=== PATIENT | female | born 1990 | race Caucasian/White ===

== ENCOUNTER 2020-11-28 12:56 | Outpatient (REF) | payer OTHER, SELFPAY ==
[2020-11-28 14:01] LABS: MANUAL DIFF FLAG NO
[2020-11-28 14:14] LABS: Basophils Absolute Auto 0.1 X10*3/uL (0.0-0.2); Basophils Percent Auto 0.6 % (0-2); Eosinophils Absolute Auto 0.2 X10*3/uL (0.0-0.4); Eosinophils Percent Auto 2.1 % (0-4); Hematocrit 37.5 % (37-47); Hemoglobin 11.6 g/dl (12.0-16.0); Imm Gran Abs Auto 0.02 X10*3/uL (0.00-0.03); Imm Gran Pct Auto 0.2 % (0.0-0.4); Lymphocytes Absolute Auto 3.5 X10*3/uL (1.2-4.9); Lymphocytes Percent Auto 36.2 % (20-40); Mean Corpuscular HGB Conc 30.9 g/dl (31.0-35.0); Mean Corpuscular Hemoglobin 18.6 pg (27.0-33.0); Monocytes Absolute Auto 0.6 X10*3/uL (0.1-1.2); Neutrophils Absolute Auto 5.3 X10*3/uL (2.0-8.3); Neutrophils Percent Auto 54.9 % (45-73); Platelet Count 306 X10*3/uL (160-400); Red Blood Count 6.22 X10*6/uL (4.20-5.50); Red Cell Distribution Width 17.7 % (11.0-16.0); White Blood Count 9.7 X10*3/uL (4.8-10.8)
[2020-11-28 14:15] LABS: Mean Corpuscular Volume 60.3 fL (80-98)
[2020-11-28 14:35] LABS: Alanine Aminotransferase 16 U/L (0-31); Albumin Level 4.9 g/dL (3.5-5.0); Alkaline Phosphatase 59 U/L (39-117); Anion Gap 16 (12-20); Aspartate Amino Transferase 18 U/L (5-31); Bilirubin Total 0.7 mg/dL (0.0-1.0); Blood Urea Nitrogen 13 mg/dL (9-16); Calcium 9.5 mg/dL (8.4-10.2); Carbon Dioxide 23 mmol/L (22-29); Chloride 104 mmol/L (96-108); Cholesterol 207 mg/dL; Estimated Glomerular Filt Rate > 60; Glucose Fasting 80 mg/dL (60-99); HDL Cholesterol 80 mg/dL; LDL Cholesterol Calculated 109 mg/dl; Potassium 4.5 mmol/L (3.3-5.1); Sodium 138 mmol/L (135-145); Total Protein 7.7 g/dL (6.5-8.0); Triglycerides 91 mg/dL
[2020-11-28 14:58] LABS: TSH reflex Free T4 1.52 uIU/mL (0.32-4.0)
== END 2020-11-28 12:57 | disposition home or self-care (01) ==
LOC: HO.HMGCLDS 12:56
PROVIDERS: PCP Internal Medicine; Visit Provider Internal Medicine
DX: Z76.89 Persons encountering health services in other specified circumstances (principal); F41.1 Generalized anxiety disorder; E66.09 Other obesity due to excess calories; Z68.35 Body mass index [BMI] 35.0-35.9, adult
CPT/HCPCS: 36415; 80053; 80061; 84443; 85025; 85060

== ENCOUNTER 2022-08-13 08:53 | Outpatient (REF) | payer OTHER, SELFPAY ==
--- NOTE | ~2022-08-13 | XR_ITS ---
EXAMINATION: XR CHEST CLINICAL INFORMATION: Obesity COMPARISON: None TECHNIQUE: 2 views of the chest were obtained. FINDINGS: No significant abnormality is noted involving the heart, lungs, mediastinum, bony thorax or soft tissues. XR/XR chest 2V IMPRESSION: Unremarkable examination.
[2022-08-13 09:22] LABS: MANUAL DIFF FLAG NO
--- NOTE | 2022-08-13 09:22 | ECG_ITS ---
Test Reason : obesity Blood Pressure : / mmHG Vent. Rate : 073 BPM Atrial Rate : 073 BPM P-R Int : 130 ms QRS Dur : 096 ms QT Int : 410 ms P-R-T Axes : 070 064 007 degrees QTc Int : 451 ms Normal sinus rhythm Nonspecific ST abnormality Abnormal ECG No previous ECGs available Referred By: Bernardo Curtis Electronically Signed By:CARLI ZUNIGA MD
[2022-08-13 10:03] LABS: Basophils Absolute Auto 0.1 X10*3/uL (0.0-0.2); Eosinophils Absolute Auto 0.2 X10*3/uL (0.0-0.4); Eosinophils Percent Auto 2.6 % (0-4); Hematocrit 37.8 % (37.0-47.0); Hemoglobin 11.3 g/dl (12.0-16.0); Imm Gran Abs Auto 0.03 X10*3/uL (0.00-0.03); Imm Gran Pct Auto 0.4 % (0.0-0.4); Lymphocytes Absolute Auto 2.8 X10*3/uL (1.2-4.9); Lymphocytes Percent Auto 34.1 % (20-40); Mean Corpuscular HGB Conc 29.9 g/dl (31.0-35.0); Mean Corpuscular Hemoglobin 17.7 pg (27.0-33.0); Monocytes Absolute Auto 0.4 X10*3/uL (0.1-1.2); Monocytes Percent Auto 5.1 % (2-11); Neutrophils Absolute Auto 4.6 x10*3/uL (2.0-8.3); Neutrophils Percent Auto 56.8 % (45-73); Platelet Count 334 X10*3/uL (160-400); Red Blood Count 6.39 X10*6/uL (4.20-5.50); Red Cell Distribution Width 16.5 % (11.0-16.0); White Blood Count 8.1 X10*3/uL (4.8-10.8)
[2022-08-13 10:05] LABS: Mean Corpuscular Volume 59.2 fL (80.0-98.0)
[2022-08-13 10:19] LABS: Estimated Average Glucose 91 mg/dL; Hemoglobin A1c % 4.8 %
[2022-08-13 10:45] LABS: Alanine Aminotransferase 18 U/L (0-31); Albumin Level 4.6 g/dL (3.5-5.0); Alkaline Phosphatase 91 U/L (39-117); Anion Gap 17 (12-20); Aspartate Amino Transferase 17 U/L (5-31); Bilirubin Total 0.6 mg/dL (0.0-1.0); Blood Urea Nitrogen 18 mg/dL (9-16); C Reactive Protein 3.18 mg/dL (< or = 0.50); Calcium 9.8 mg/dL (8.4-10.2); Carbon Dioxide 24 mmol/L (22-29); Chloride 102 mmol/L (96-108); Cholesterol 246 mg/dL; Estimated Glomerular Filt Rate > 60; Glucose Random 72 mg/dL (60-115); HDL Cholesterol 86 mg/dL; Iron 79 mcg/dL (30-160); LDL Cholesterol Calculated 145 mg/dl; Percent Iron Saturation 20 % (15-50); Potassium 4.3 mmol/L (3.3-5.1); Sodium 139 mmol/L (135-145); Total Iron Binding Capacity 399 mcg/dL (228-428); Total Protein 7.5 g/dL (6.5-8.0); Triglycerides 78 mg/dL; Unsaturated Iron Binding 320 ug/dL
[2022-08-13 10:50] LABS: Ferritin 55 ng/mL (10-122); Insulin 7 uU/mL (2-29); TSH reflex Free T4 0.78 uIU/mL (0.32-4.0); Vitamin D 25-OH Total 13.6 ng/mL (>30)
[2022-08-13 11:13] LABS: Folate > 20.0 ng/mL (> or = 4.0); Vitamin B12 582 pg/mL (200-900)
[2022-08-14 11:12] LABS: Calcium (PTHI) 9.7 mg/dL (8.6-10.2); PTHI 94 pg/mL (16-77)
[2022-08-18 06:16] LABS: Vitamin B1 10 nmol/L (8-30)
[2022-08-18 20:11] LABS: Zinc 76 mcg/dL (60-130)
[2022-08-19 17:41] LABS: Vitamin A 69 mcg/dL (38-98)
== END 2022-08-13 08:54 | disposition home or self-care (01) ==
LOC: HO.LAB 08:53
PROVIDERS: PCP Internal Medicine; Visit Provider Physician Assistant Surgical
DX: E66.01 Morbid (severe) obesity due to excess calories (principal)
CPT/HCPCS: 36415; 71046; 80053; 80061; 82306; 82607; 82728; 82746; 83036; 83525; 83540; 83970; 84425; 84443; 84590; 84630; 85025; 86140; 93005

== ENCOUNTER 2022-08-20 17:26 | Outpatient (REF) | payer OTHER, SELFPAY ==
[2022-08-21 13:30] LABS: H Pylori Breath Test Negative (Negative)
== END 2022-08-20 17:27 | disposition home or self-care (01) ==
LOC: HO.LNP 17:26
PROVIDERS: Visit Provider Physician Assistant Surgical
DX: E66.01 Morbid (severe) obesity due to excess calories (principal)
CPT/HCPCS: 83013

== ENCOUNTER → 2022-08-25 13:00 | Outpatient (BNVA) | payer OTHER, SELFPAY | PROVIDERS: PCP Internal Medicine; Visit Provider Counselor Mental Health | DX: F50.81 Binge eating disorder (principal); F41.9 Anxiety disorder, unspecified; F32.A Depression, unspecified; E66.01 Morbid (severe) obesity due to excess calories | CPT/HCPCS: 90791 ==

== ENCOUNTER → 2022-09-08 14:40 | Outpatient (BNVA) | payer OTHER, SELFPAY | PROVIDERS: PCP Internal Medicine; Visit Provider Dietitian, Registered | DX: E66.9 Obesity, unspecified (principal) | CPT/HCPCS: 97802 ==

== ENCOUNTER 2022-09-18 09:57 | Outpatient (REF) | payer OTHER, SELFPAY ==
--- NOTE | ~2022-09-18 | FL_ITS ---
EXAMINATION: XR FLUOROSCOPY UPPER GI WITH AIR CLINICAL INFORMATION: Morbid obesity. COMPARISON: None TECHNIQUE: Air-contrast upper GI examination. FINDINGS: There is normal apposition of vocal cords while saying 'E'. There is normal elevation of the soft palate while saying 'candy'. Patient swallowed thin and thick barium and half-inch diameter barium tablet without difficulty. No nasopharyngeal reflux or tracheal aspiration identified. There is normal esophageal motility without evidence of persistent stricture or ulcerations/erosions. No hiatal hernia was identified. No gastroesophageal reflux identified. The stomach demonstrated normal distensibility without evidence of abnormal mass or ulceration. There was no delay in gastric emptying. The duodenal bulb and sweep appeared unremarkable. FLUOROSCOPY TIME: 1.9 minutes DOSE AREA PRODUCT: 10.207 Gy-cm2 (merino-centimeter squared) IMAGES: 12 FL/FL upper GI w air IMPRESSION: Normal air-contrast upper GI examination.
--- NOTE | ~2022-09-18 | US_ITS ---
EXAMINATION: US COMPLETE ABDOMEN WITH LIVER ELASTOGRAPHY CLINICAL INFORMATION: Morbid/severe obesity due to excess calories. COMPARISON: None. TECHNIQUE: Real-time imaging of the abdominal viscera. Noninvasive ultrasound liver fibrosis assessment is performed using Dominique ElastPQ point quantification shear wave elastography (2D-SWE) with a C5-2 MHz transducer. Multiple elastography samples are obtained. FINDINGS: PANCREAS: Normal. The visualized pancreatic head and body are normal in appearance. The remainder of the pancreas is obscured from visualization by the overlying bowel gas. ABDOMINAL AORTA: The proximal, middle, and distal aortic segments are normal in caliber. INFERIOR VENA CAVA: Visualized portions are normal. LIVER: Normal. The liver demonstrates normal size, contour and echogenicity. No focal lesion or intrahepatic biliary duct dilatation. The right lobe measures 20.4 cm in length. The left lobe measures 14.1 cm in length. Portal flow is hepatopetal. Shear wave liver elastography median stiffness is 1.37 m/s (reference: Normal median stiffness is 1.3 m/s or less). IQR/median stiffness to assess sampling precision is 0.34 (reference: Good quality data set is IQR/median stiffness of 0.15 or less). GALLBLADDER: There are multiple echogenic gallstones without evidence of sludge, polyps, wall thickening or pericholecystic fluid. COMMON BILE DUCT: Normal in caliber measuring 0.4 cm in diameter. RIGHT KIDNEY: Normal. No hydronephrosis. No renal calculi or focal parenchymal lesions. The kidney measures 11.0 cm in maximum dimension. LEFT KIDNEY: Normal. No hydronephrosis. No renal calculi or focal parenchymal lesions. The kidney measures 11.0 cm in maximum dimension. SPLEEN: Normal. The spleen measures 11.8 cm in maximum dimension. FREE FLUID: None. US/US abdomen comp w elastography IMPRESSION: Cholelithiasis without wall thickening. The rest of the abdominal ultrasound is unremarkable. Liver Elastography: Median liver stiffness 1.37 m/s corresponding to almost high probability of being normal. REFERENCE: Society of Radiologists in Ultrasound Liver Stiffness Thresholds (2019): LIVER STIFFNESS THRESHOLDS: *Liver Stiffness equal or less than 1.3 m/s: High probability of being normal. *Liver Stiffness less than 1.7 m/s: In the absence of other known clinical signs, rules out compensated advanced chronic liver disease. *Liver Stiffness 1.7-2.1 m/s: Suggestive of compensated advanced chronic liver disease but need further test for confirmation. *Liver Stiffness over 2.1 m/s: Rules in compensated advanced chronic liver disease. *Liver Stiffness over 2.4 m/s: Suggestive of clinically significant portal hypertension. QUALITY OF DATA SET: *IQR/Median value equal or less than 0.15 implies a quality data set. *IQR/Median value over 0.15 implies a poor quality data set. SIGNIFICANT CHANGE FROM PRIOR EXAM: Significant change if liver stiffness measurement is 10% or greater from prior exam. OTHER CONSIDERATIONS: The stage of liver fibrosis may be overestimated in the setting of acute hepatitis, liver inflammation, elevated liver function tests, hepatic vascular congestion, obstructive cholestasis, non-fasting state, and infiltrative diseases such as amyloidosis and lymphoma. In some patients with NAFLD, the liver stiffness thresholds for compensated advanced chronic liver disease may be lower. In causes other than viral hepatitis and NAFLD, liver stiffness thresholds are not well established.
== END 2022-09-18 09:58 | disposition home or self-care (01) ==
LOC: HO.US 09:57
PROVIDERS: Visit Provider Physician Assistant Surgical
DX: Z01.818 Encounter for other preprocedural examination (principal); E66.01 Morbid (severe) obesity due to excess calories
CPT/HCPCS: 74246; 76705; 76981

== ENCOUNTER → 2022-09-22 12:30 | Outpatient (BNVA) | payer OTHER, SELFPAY | PROVIDERS: PCP Internal Medicine; Visit Provider Counselor Mental Health | DX: F50.81 Binge eating disorder (principal); F41.9 Anxiety disorder, unspecified; F32.A Depression, unspecified; E66.01 Morbid (severe) obesity due to excess calories | CPT/HCPCS: 90832 ==

== ENCOUNTER → 2022-09-30 11:30 | Outpatient (BNVA) | payer OTHER, SELFPAY | PROVIDERS: PCP Internal Medicine; Visit Provider Physician Assistant Surgical | DX: E66.9 Obesity, unspecified (principal) ==

== ENCOUNTER → 2022-10-01 08:07 | Outpatient (BNVA) | payer OTHER, SELFPAY | PROVIDERS: PCP Internal Medicine; Visit Provider Surgery | DX: K21.9 Gastro-esophageal reflux disease without esophagitis (principal) ==

== ENCOUNTER → 2022-10-16 10:23 | Outpatient (BNVA) | payer OTHER, SELFPAY | PROVIDERS: PCP Internal Medicine; Visit Provider Surgery | DX: K21.9 Gastro-esophageal reflux disease without esophagitis (principal) ==

== ENCOUNTER → 2022-10-23 07:54 | Outpatient (REF) | payer OTHER, SELFPAY ==
--- NOTE | 2022-10-23 08:35 | CA_ITS ---
Acquisition Time: 2022-10-23 08:43:14 Total Exercise Time: 00:07:50 Test Indications: ABN EKG Medications: SEE CHART Protocol: RASHEL Max HR: 179 BPM 95% of Pred: 187 BPM Max BP: 190/050 mmHG Max Work Load: 9.8 METS Exercise stress test with exercise 7 min 50 sec of Rashel protocol, achieving 95% MPHR, 9.8 METs, without anginal symptoms, without arrythmia, with hypertensive response to exercise with baseline BP 118/78 and max BP 190/50, with Baseline EKG showing ST depression and downsloping STs inferiorly and V4-V6 which improves with exercise and returns in recovery. Peak exercise EKG shows no ischemic findings. Baseline EKG abnormalities do improve some with a normal 12 lead set up however ischemia can't entirely be excluded. Recommend a stress echocardiogram if further evaluation is warranted.Test reviewed with Dr Pagan Referred By: Bernardo Curtis Overread By: ИВАН GARRIDO
[2022-10-23 09:13] LABS: Eosinophils Percent Auto 0.9 % (0-4); SCAN SMEAR FLAG 1
[2022-10-23 09:16] LABS: Basophils Absolute Auto 0.1 X10*3/uL (0.0-0.2); Basophils Percent Auto 0.5 % (0-2); Eosinophils Absolute Auto 0.1 X10*3/uL (0.0-0.4); Hematocrit 36.4 % (37.0-47.0); Hemoglobin 11.1 g/dl (12.0-16.0); Imm Gran Abs Auto 0.05 X10*3/uL (0.00-0.03); Imm Gran Pct Auto 0.4 % (0.0-0.4); Lymphocytes Absolute Auto 2.1 X10*3/uL (1.2-4.9); Lymphocytes Percent Auto 16.1 % (20-40); Mean Corpuscular HGB Conc 30.5 g/dl (31.0-35.0); Mean Corpuscular Hemoglobin 17.8 pg (27.0-33.0); Monocytes Absolute Auto 0.9 X10*3/uL (0.1-1.2); Neutrophils Absolute Auto 9.7 x10*3/uL (2.0-8.3); Neutrophils Percent Auto 75.1 % (45-73); Platelet Count 278 X10*3/uL (160-400); Red Blood Count 6.22 X10*6/uL (4.20-5.50); Red Cell Distribution Width 17.2 % (11.0-16.0); White Blood Count 12.9 X10*3/uL (4.8-10.8)
[2022-10-23 09:22] LABS: MANUAL DIFF FLAG NO; Mean Corpuscular Volume 58.5 fL (80.0-98.0); PLT ABN DIST 1
[2022-10-23 09:23] LABS: Estimated Average Glucose 85 mg/dL; Hemoglobin A1c % 4.6 %
[2022-10-23 09:31] LABS: INTERNATIONAL NORM RATIO 1.1 (0.9-1.1); Prothrombin Time 12.6 SEC (10.0-13.1)
[2022-10-23 09:33] LABS: Partial Thromboplastin Time 27.9 SEC (26.0-36.4)
[2022-10-23 09:48] LABS: Alanine Aminotransferase 10 U/L (0-31); Albumin Level 4.4 g/dL (3.5-5.0); Alkaline Phosphatase 69 U/L (39-117); Anion Gap 15 (12-20); Aspartate Amino Transferase 11 U/L (5-31); Bilirubin Total 0.8 mg/dL (0.0-1.0); Blood Urea Nitrogen 10 mg/dL (9-16); C Reactive Protein 6.08 mg/dL (< or = 0.50); Calcium 9.8 mg/dL (8.4-10.2); Carbon Dioxide 23 mmol/L (22-29); Chloride 107 mmol/L (96-108); Cholesterol 192 mg/dL; Estimated Glomerular Filt Rate > 60; Glucose Random 89 mg/dL (60-115); HDL Cholesterol 57 mg/dL; LDL Cholesterol Calculated 114 mg/dl; Potassium 4.3 mmol/L (3.3-5.1); Sodium 141 mmol/L (135-145); Total Protein 7.1 g/dL (6.5-8.0); Triglycerides 106 mg/dL
[2022-10-23 09:53] LABS: Insulin 10 uU/mL (2-29); TSH reflex Free T4 0.45 uIU/mL (0.32-4.0)
== END ==
LOC: HO.CARD 07:54
PROVIDERS: Visit Provider Surgery
DX: Z01.818 Encounter for other preprocedural examination (principal); E66.9 Obesity, unspecified; R94.31 Abnormal electrocardiogram [ECG] [EKG]; R06.02 Shortness of breath; R94.39 Abnormal result of other cardiovascular function study; Z68.36 Body mass index [BMI] 36.0-36.9, adult
CPT/HCPCS: 36415; 80053; 80061; 83036; 83525; 84443; 85025; 85610; 85730; 86140; 93017

== ENCOUNTER 2022-10-24 13:49 | Outpatient (REF) | payer OTHER, SELFPAY ==
[2022-10-24 14:53] LABS: Appearance Urine Cloudy; Color Urine Yellow; Glucose Urine UA Negative (Negative); Leukocyte Esterase Urine Large (3+) (Negative); Nitrite Urine Negative (Negative); UMIC TRIGGER UACC YES; Urine Blood Moderate (2+) (Negative); Urine Ketones Negative (Negative); Urine Protein 300 (3+) mg/dL (Neg-Trace)
[2022-10-24 15:00] LABS: Bacteria Urine Trace (None Seen); Hyaline Casts Urine 0-2 /LPF (0-2); RBC Urine >20 /HPF (0-2); Squamous Epithelial Cell Urine 0-2 /HPF (0-2); UACC Culture Trigger YES; WBC Urine >50 /HPF (0-5)
== END 2022-10-24 13:50 | disposition home or self-care (01) ==
LOC: HO.LAB 13:49
PROVIDERS: PCP Internal Medicine; Visit Provider Surgery
DX: E66.9 Obesity, unspecified (principal); R94.39 Abnormal result of other cardiovascular function study; N39.0 Urinary tract infection, site not specified; Z68.36 Body mass index [BMI] 36.0-36.9, adult
CPT/HCPCS: 81001; 87086; 87088; 87186

== ENCOUNTER → 2022-10-27 12:55 | Outpatient (BNVA) | payer OTHER, SELFPAY | PROVIDERS: PCP Internal Medicine; Visit Provider Surgery | DX: Z13.89 Encounter for screening for other disorder (principal) ==

== ENCOUNTER → 2022-10-28 10:00 | Outpatient (REF) | payer OTHER, SELFPAY ==
--- NOTE | ~2022-10-28 | NM_ITS ---
Exercise Myocardial perfusion study Indication: Abnormal EKG, preoperative cardiovascular risk stratification Technique: The patient was brought in for an Lexiscan perfusion study on 10/28/2022. Patient performed exercise as per Lexiscan protocol and was injected 35 mCi of sestamibi was given intravenously once Lexiscan bolus injected.. Images were obtained using the SPECT gamma camera interlaced with the gating device. Images were obtained in supine position. Resting perfusion study was performed on 10/29/2022. Patient was administered 35 mCi of sestamibi intravenously at rest. Images were then obtained in supine position. Images obtained with and without CT attenuation. Total DLP 143 mGy-cm. Images were processed with the software and compared side to side in short axis, horizontal long axis and vertical long axis views. Findings: The stress perfusion study showed non attenuated images show thinning of the basal and mid anterior wall of the LV myocardium. Remainder of the LV myocardium normally perfused. Attenuation corrected images show normal uptake of radiotracer in all segments of LV myocardium consistent with breast attenuation of anterior wall on non attenuated images.. The gated study shows normal LV systolic function with calculated LVEF of 73%. LV cavity is normal in size. The gated study shows normal systolic wall thickening and contraction of all segments. There is no transient ischemic dilation. Resting study shows attenuated corrected images show normal uptake of radiotracer in all segments. Gating at rest reveals normal systolic wall motion with ejection fraction at 63%. The findings are consistent with normal myocardial perfusion. NM/NM barbara perf SPECT rest & str Impression: 1. Normal myocardial perfusion 2. Gated LVEF is 73% 3. Transient ischemic dilatation not present Stress EKG is nondiagnostic for ischemia
--- NOTE | 2022-10-28 10:02 | CA_ITS ---
Acquisition Time: 2022-10-28 10:32:36 Total Exercise Time: 00:08:00 Test Indications: Preop, SOB, Abn EKG Medications: See H Protocol: RASHEL Max HR: 171 BPM 91% of Pred: 187 BPM Max BP: 140/060 mmHG Max Work Load: 10.1 METS Exercise stress test with exercise 8 min of Rashel protocol, achieving 91% MPHR, 10.1 METs, with report of 3/10 mid chest discomfort, without arrythmia, with normotensive response to exercise, without EKG changes meeting criteria for ischemia at peak exercise however there are EKG changes that do meet criteria for ischemia inearly exercise and mostly in recovery. In recovery her chest discomfort resolved. Nuclear images pending. Test reviewed with Dr Nicole. Referred By: Bernardo Curtis Overread By: ИВАН GARRIDO
== END ==
LOC: HO.CARD 10:00
PROVIDERS: PCP Internal Medicine; Visit Provider Surgery
DX: Z01.818 Encounter for other preprocedural examination (principal); R06.02 Shortness of breath; R94.31 Abnormal electrocardiogram [ECG] [EKG]; R94.39 Abnormal result of other cardiovascular function study
CPT/HCPCS: 78452; 93017; A9500

== ENCOUNTER 2022-10-31 09:54 | Inpatient (IN) | payer OTHER, SELFPAY ==
[2022-10-22 12:05] VITALS: BMI 36.8
--- NOTE | 2022-10-24 18:25 | MHC.SHP ---
Pre-Procedural Eval Section A Date of Service: 10/24/22 The patient is an INPATIENT: Yes The History & Physical has been completed within 30 days and I have reviewed it.: Yes Section B Chief Complaint: Obesity, unspecified Relevant Family History (Specify if Yes): No Relevant Social History: None Present Medications: None Medical History: No relevant PMH History of Previous Operations: No relevant previous surgery Allergies: Allergies Allergy/AdvReac Type Severity Reaction Status Date / Time No Known Allergies Allergy Verified 10/22/22 12:00 Review of Systems Sugical H&P ROS: Negative: Constitution, Cardiovascular, Respiratory, Neurological, Psychiatric, Hem-Onc, Allergic/Immunologic, Gastrointestinal, Genitourinary, Musculoskeletal, Integumentary, Endocrine and Eyes/Ears/Nose/Throat Exam Surgical H&P Exam: Normal: HEENT, Normal: Heart, Normal: Lungs, Normal: Extremities, Normal: Abdomen, Normal: Skin and Normal: Neurological Plan Diagnosis/Plan: Change (Plan for sleeve gastrectomy and possible cholecystectomy due to cholelithiasis. Risks of cholecystectomy were discussed including bleeding, infection, bile leak, common bile duct injurt, pancreatitis.) I have reviewed the history and physical and performed a pertinent physical examination on my patient. No changes have occurred unless specified. Time Spent With Patient Time: Total time managing care of this patient today ____ minutes.
--- NOTE | 2022-10-30 09:46 | P.CONAN_ITS ---
HPI - Anesthesia Eval Consult details Narrative: 32yo F for Gastrectomy Sleeve,possible diaphragmatic hernia,possible ventral hernia,possible open, Cholecystectomy Laparoscopic PMFSH Active Problems Active Problems: All Active Problems (Updated 10/23/22 @ 18:19 by Chris Garcia MD) Equivocal stress test (Acute) Abnormal EKG (Acute) Low hemoglobin (Acute) Low mean corpuscular volume (MCV) (Acute) Family history of beta thalassemia (Acute) Morbid obesity (Acute) Depression (Acute) Anxiety (Acute) Beta thalassemia trait (Acute) Binge-eating disorder, moderate (Acute) Obesity (BMI 30-39.9) (Acute) Cholelithiases (Acute) BMI 37.0-37.9, adult (Acute) Hyperlipidemia (Acute) BMI 36.0-36.9,adult (Acute) GERD (gastroesophageal reflux disease) (Acute) Anemia (Acute) Past Medical History Medical History (Updated 10/23/22 @ 18:19 by Chris Garcia MD) Anemia Anxiety and depression GERD (gastroesophageal reflux disease) Family History Family History Father Cancer Mother No problems noted. Maternal Grandmother No problems noted. Maternal Grandfather Cancer Paternal Grandmother Type 2 diabetes mellitus Paternal Grandfather No problems noted. Brother No problems noted. Sister No problems noted. Son No problems noted. Surgical History Surgical History History of wisdom tooth extraction, class I edentulism Hx of tonsillectomy Social History Social History Are you a primary assistant child care teacher to a significant other at home: No Do you presently have visiting nurse or other home services: No Alcohol intake: current Alcohol intake frequency: holidays/special occasions only Patient Tobacco Use Status: Never used Tobacco Meds Allergies Allergy/AdvReac Type Severity Reaction Status Date / Time No Known Allergies Allergy Verified 10/22/22 12:00 Home Medications Medication Instructions Recorded Confirmed Last Taken Type sertraline 100 mg tablet 100 mg PO DAILY 12/04/20 10/22/22 Unknown History drospirenone 3 mg-ethinyl 1 tab PO DAILY 07/28/22 10/22/22 10/18/22 History estradiol 0.02 mg tablet Exam Exam Date and Time: October 30, 2022 0946 Height,Weight and Vital Signs: Height 5 ft 1 in Weight 88.451 kg Pertinent Lab Results Pertinent Lab Results: Laboratory Tests 10/23/22 08:15 Blood Type A Positive Antibody Screen NEGATIVE Laboratory Tests 10/23/22 10/23/22 08:22 08:22 WBC 12.9 H Hgb 11.1 L Hct 36.4 L Plt Count 278 Sodium 141 Potassium 4.3 Chloride 107 Carbon Dioxide 23 BUN 10 Creatinine 0.80 Narrative Narrative: EKG 08/2022 Vent. Rate : 073 BPM ? ? Atrial Rate : 073 BPM ?? P-R Int : 130 ms? QRS Dur : 096 ms ? ? QT Int : 410 ms ? ? ? P-R-T Axes : 070 064 007 degrees ?? QTc Int : 451 ms ? Normal sinus rhythm Nonspecific ST abnormality Abnormal ECG No previous ECGs available Nuc Stress 10/2022 1.? Normal myocardial perfusion 2.? Gated LVEF is 70% 3. Transient ischemic dilatation not present Stress EKG is equivocal for ischemia Assessment and Plan Assessment Anesthesia Assessment: Chart Reviewed
[2022-10-30 13:36] LABS: IDNOW Serial# BCCEAD1C
[2022-10-30 13:37] LABS: COVID-19 Test Negative (Negative)
[2022-10-31] VITALS (10 sets, daily range): BP systolic 127–160; BP diastolic 54–97; PULSE 74–103; RESP 14–20; TEMP 36.1–37.3; O2SAT 96–100
[2022-10-31 08:13] LABS: UPreg QC Valid YES; Urine Pregnancy NEGATIVE (NEGATIVE)
--- OUTSIDE RECORDS SUMMARY | 2022-10-31 10:12 | XMS_ITS | Continuity of Care Document ---
:1990 Author Organization [facility] re Address [address] [place] [phone]- Care Team Providers Name Role Phone Not on Staff, PCP Primary Care Physician Unavailable [place] [facility] [place]20 [place] 12/[place]/20 [facility] [address] [place], [place] [address] Attending Physician: Benigno Cardenas Admitting Physician: Benigno Cardenas Referring Physician: Benigno Cardenas Allergies, Adverse Reactions, Alerts Substance Reaction Severity Status NKA Active Medications cetirizine 10 mg oral capsule 1 capsule = 10 mg, By Mouth, Daily, PRN for allergy symptoms, # 40 capsule, 0 Refills, Maintenance, 01/31/19 21:53:47 EDT, Capsule Start Date: 01/31/19 Status: Orderedfluticasone propionate 55 mcg/inh inhalation powder 1 puffs, Inhalation, Daily, # 1 each, 0 Refills, Maintenance, 01/31/19 21:54:45 EDT, Powder Start Date: 01/31/19 Status: OrderedhydrOXYzine hydrochloride 10 mg oral tablet 0.5 tablet = 5 mg, By Mouth, 2 times a day, PRN for anxiety, # 80 tablet, 0 Refills, Maintenance, 01/31/19 21:53:59 EDT, Tablet Start Date: 01/31/19 Status: Orderedsertraline 100 mg oral tablet 1 tablet = 100 mg, By Mouth, Daily, # 90 tablet, 0 Refills, Maintenance, 01/31/19 13:27:25 EDT, Tablet Start Date: 01/31/19 Status: Ordered Social History Social History Type Response Smoking Status Never smoker entered on: 03/03/18 Sex
--- OUTSIDE RECORDS SUMMARY | 2022-10-31 10:12 | XMS_ITS | Continuity of Care Document ---
:[address] [facility] re Address [address] [place] [phone]- Care Team Providers Name Role Phone Torie Blanton MD Primary Care Phys[id number] Date[facility] - 09/26/[facility] [address] [place] [address]- Discharge Disposition: A-D/C Home Attending Physician: Pamela Olea MD Admitting Physician: Pamela Olea MD Referring Physician: Torie Blanton MD Allergies, Adverse Reactions, Alerts Substance Reaction Severity Status NKA Active Immunizations Given and Recorded Vaccine Date Status Refusal Reason SARS-CoV-2 (COVID-19) mRNA BNT-162b2 vac 02/05/21 Given SARS-CoV-2 (COVID-19) mRNA BNT-162b2 vac 01/15/21 Given Medications cetirizine 10 mg oral capsule 1 [...]
--- OUTSIDE RECORDS SUMMARY | 2022-10-31 10:13 | XMS_ITS | Continuity of Care Document ---
:1990 Author Organization [facility] re Address [address] [place] [phone]- Care Team Providers Name Role Phone Torie Blanton MD Primary Care Physician Encounter [facility] [place] Date(s): 06/25/21 - 07/25/21 [facility] [address] [place] [address]- Attending Physician: Benigno Cardenas Admitting Physician: AdmtrBenigno Referring Physician: Admtr, Ar8 Allergies, Adverse Reactions, Alerts Substance Reaction Severity [...]
--- OUTSIDE RECORDS SUMMARY | 2022-10-31 10:13 | XMS_ITS | Continuity of Care Document ---
:1990 Author Organization [facility] Address [address] [place] [address]- Care Team Providers Name Role Phone Torie Blanton MD Primary Care Physician Encounter [facility] [place] Date(s): 05/17/22 - 05/18/[address] [address]- Discharge Disposition: A-D/C Home Attending Physician: Mariza Zavala DO Admitting Physician: Mariza Zavala DO Referring Physician: Mariza Zavala DO Allergies, Adverse Reactions, Alerts Substance Reaction Severity Status Egg Allergy Active Immunizations Given and Recorded Vaccine Date Status Refusal Reason SARS-CoV-2 (COVID-19) mRNA BNT-162b2 vac 02/05/21 Given SARS-CoV-2 (COVID-19) mRNA BNT-162b2 vac 01/15/21 Given Medications acetaminophen 325 mg oral tablet 650 mg, By Mouth, Every 4 hours, PRN, (1-3), may give 325mg per patient preference and re-dose with 325mg within 4 hours, if needed. Patient should only receive a total of 650mg of Acetaminophen every 4 hours., Refills 0, Maintenance, Pain , Mild, 0... Start Date: 05/18/22 Status: OrderedAcetaminophen Tablet 650 mg, Tablet, By Mouth, Every 4 hours, PRN for Pain , Mild, (1-3), may give 325mg per patient preference and re-dose with 325mg within 4 hours, if needed. Patient should only receive a total of 650mgof Acetaminophen every 4 hours., Routine, 05/17... Start Date: 05/17/22 Stop Date: 05/19/22 Status: Discontinuedcetirizine 10 mg oral capsule 1 capsule = 10 mg, By Mouth, Daily, PRN for allergy symptoms, # 40 capsule, 0 Refills, Maintenance, 01/31/19 21:53:47 EDT, Capsule Start Date: 01/31/19 Status: OrderedDocusate Sodium Capsule 100 mg, 1, capsule, By Mouth, 2 times a day, PRN, Refills 0, Maintenance, Constipation, 05/18/22 11:07:00 EDT, Partial fill upon patient request if the prescription is for a schedule II opioid drug. Start Date: 05/18/22 Status: Orderedibuprofen 800 mg oral tablet 800 mg, 1, tablet, By Mouth, Every 8 hours, PRN, (4-6), may give 400mg per patient preference and re-dose with 400mg within 8 hours if needed. Patient should only receive a total of 800mg of Ibuprofen every 8 hours., Refills 0, Maintenance, Pain , M... Start Date: 05/18/22 Status: OrderedIbuprofen Tablet 800 mg, Tablet, By Mouth, Every 8 hours, PRN for Pain , Moderate, (4-6), may give 400mg per patient preference and re-dose with 400mg within 8 hours if needed. Patient should only receive a total of 800mg of Ibuprofen every 8 hours., Routine, ... Start Date: 05/17/22 Stop Date: 05/19/22 Status: Discontinuedsertraline 100 mg oral tablet 1 tablet = 100 mg, By Mouth, Daily, # 90 tablet, 0 Refills, Maintenance, 01/31/19 13:27:25 EDT, Tablet Start Date: 01/31/19 Status: Ordered Problem List Condition Effective Dates Status Health Status Informant Severe obesity(Confirmed) Active Vital Signs Most recent to oldest 1 2 3 [Reference Range]: Height 156 cm 156 cm 156 cm (05/18/22 1:04 AM) (05/17/22 8:35 PM) (05/17/22 9:5 6 AM) Weight 110.4 kg 110.4 kg (05/17/22 9:56 AM) (05/17/22 7:47 AM) Oxygen Saturation [94-100 %] 100 % 98 % 99 % (05/18/22 8:00 AM) (05/17/22 3:15 PM) (05/17/22 12: 17 PM) Pulse Rate [55-90 bpm] 83 bpm 72 bpm 81 bpm (05/18/22 8:00 AM) (05/18/22 1:04 AM) (05/17/22 8:3 5 PM) Body Mass Index [18.5-24.99] 45.36 *>HHI* (05/17/22 9:56 AM) Blood Pressure [90-138/55-84 118/62 mm Hg 134/93 mm Hg 117 /56 mm Hg mm Hg] (05/18/22 8:45 AM) (05/18/22 8:00 AM) (05/18/22 1:0 4 AM) Respiratory Rate [16-30 18 br/min 18 br/min 18 br/mi n br/min] (05/18/22 12:10 PM) (05/18/22 12:10 PM) (05/18/22 8 :00 AM) Temperature [96.8-100.4 98.1 DegF 98.0 DegF 98.0 Deg F DegF] (05/18/22 8:00 AM) (05/18/22 1:04 AM) (05/17/22 8:3 5 PM) Liters per Minute 0 L/min 0 L/min (05/18/22 8:00 AM) (05/17/22 3:15 PM) Mode of Delivery (Oxygen) Room air Room air Room a ir (05/18/22 8:00 AM) (05/17/22 3:15 PM) (05/17/22 9:5 6 AM) Blood pressure sites Arm, right Arm, right Arm, left (05/18/22 8:00 AM) (05/17/22 3:15 PM) (05/17/22 9:5 6 AM) Temperature Route Oral Oral Oral (05/18/22 8:00 AM) (05/18/22 1:04 AM) (05/17/22 8:3 5 PM) Dry Weight 110.4 kg 110.4 kg (05/17/22 9:56 AM) (05/17/22 7:47 AM) Social History Social History Type Response Smoking Status Never smoker entered on: 03/03/18 Sex
--- OUTSIDE RECORDS SUMMARY | 2022-10-31 10:13 | XMS_ITS | Continuity of Care Document ---
:1990 Author Organization [facility] Address [address] [place] [phone]- Care Team Providers Name Role Phone Torie Blanton MD Primary Care Physician [place] [facility] [place] - 06/14/[address] [address]- Discharge Disposition: A-D/C Walkout Attending Physician: Not on Staff, Attending MD Admitting Physician: Not on Staff, Admitting MD Referring Physician: Not on Staff, Referring MD Allergies, Adverse Reactions, Alerts Substance Reaction [...] , Mild, 0... Start Date: 05/18/22 Status: Orderedcetirizine 10 mg oral capsule 1 capsule = [...] Pain , M... Start Date: 05/18/22 Status: Orderedsertraline 100 mg oral tablet 1 tablet = 100 mg, By Mouth, Daily, # 90 tablet, 0 Refills, Maintenance, 01/31/19 13:27:25 EDT, Tablet Start Date: 01/31/19 Status: Ordered Problem List Condition Effective Dates Status Health Status Informant Severe obesity(Confirmed) Active Vital Signs Most recent to oldest [Reference Range]: 1 2 Height 155 cm (06/14/22 2:59 AM) Weight 98 kg (06/14/22 2:59 AM) Oxygen Saturation [94-100 %] 100 % 100 % (06/14/22 4:22 AM) (06/14/22 2:31 AM) Pulse Rate [55-90 bpm] 82 bpm 93 bpm (06/14/22 4:22 AM) *H* (06/14/22 2:31 AM) Blood Pressure [90-138/55-84 mm Hg] 138/72 mm Hg 124/ 77 mm Hg (06/14/22 4:22 AM) (06/14/22 2:31 AM) Respiratory Rate [16-30 br/min] 16 br/min (06/14/22 2:31 AM) Temperature [96.8-100.4 DegF] 98.2 DegF 98.1 DegF (06/14/22 4:22 AM) (06/14/22 2:31 AM) Mode of Delivery (Oxygen) Room air Room air (06/14/22 4:22 AM) (06/14/22 2:31 AM) Blood pressure sites Arm, right (06/14/22 4:22 AM) Temperature Route Oral Oral (06/14/22 4:22 AM) (06/14/22 2:31 AM) Dry Weight 98 kg (06/14/22 2:59 AM) Social History Social History Type Response Smoking Status Never smoker entered on: 03/03/18 Sex Care Team PersonnelName: Harvinder GUAJARDO, Torie Linares Address: [facility] [place] [address]-
--- OUTSIDE RECORDS SUMMARY | 2022-10-31 10:13 | XMS_ITS | Continuity of Care Document ---
:1990 Author Organization [facility] re Address [address] [place] [address]- Care Team Providers Name Role Phone Not on Staff, PCP Primary Care Physician Unavailable Encounter [facility] Date(s): 11/21/20 - 03/07/21 [facility] [address] [address] Discharge Disposition: A-D/C Home Attending Physician: Pamela Olea MD Admitting Physician: Pamela Olea MD Referring Physician: Kisha Carranza MD Allergies, Adverse Reactions, Alerts Substance Reaction [...]
--- NOTE | 2022-10-31 10:25 | PHA.MEDREC ---
Pharmacy Consult ? Medication Reconciliation Pharmacy has reviewed the medication reconciliation compelted by nursing. Jessica Rich, GrisD
--- NOTE | 2022-10-31 10:29 | HO.ANESPROP2 ---
[facility] Active Problems Active Problems: All Active Problems (Updated 10/23/22 @ 18:19 by Chris Garcia MD) Equivocal stress test (Acute) Abnormal EKG (Acute) Low hemoglobin (Acute) Low mean corpuscular volume (MCV) (Acute) Family history of beta thalassemia (Acute) Morbid obesity (Acute) Depression (Acute) Anxiety (Acute) Beta thalassemia trait (Acute) Binge-eating disorder, moderate (Acute) Obesity (BMI 30-39.9) (Acute) Cholelithiases (Acute) BMI 37.0-37.9, adult (Acute) Hyperlipidemia (Acute) BMI 36.0-36.9,adult (Acute) GERD (gastroesophageal reflux disease) (Acute) Anemia (Acute) Past Medical History Medical History (Updated 10/23/22 @ 18:19 by Chris Garcia MD) Anemia Anxiety and depression GERD (gastroesophageal reflux disease) Family History Family History Father Cancer Mother No problems noted. Maternal Grandmother No problems noted. Maternal Grandfather Cancer Paternal Grandmother Type 2 diabetes mellitus Paternal Grandfather No problems noted. Brother No problems noted. Sister No problems noted. Son No problems noted. Family history of problems with anesthesia: No Surgical History Surgical History History of wisdom tooth extraction, class I edentulism Hx of tonsillectomy History of Problems with Anesthesia: No Social History Social History Are you a primary group care worker to a significant other at home: No Do you presently have visiting nurse or other home services: No Alcohol intake: current Alcohol intake frequency: holidays/special occasions only Patient Tobacco Use Status: Never used Tobacco Use of substances other than those prescribed or required for medical reasons: No Have you been hit, kicked, punched, or otherwise hurt by someone within the past year? If so, by whom?: No Are you DNR?: No Advance Directives: No Advance Directives Information Provided: No Advance Directives on File: No Recently lost weight without trying: No How much weight loss: 24-33 pounds Eating poorly because of decreased appetite: No Nutrition screen score: 3 Nutrition Risks: No Nutritional Risk Patient : No FDLMP: 10/21/22 : No Poor oral hygiene: No (Capped molars) Meds Allergies Allergy/AdvReac Type Severity Reaction Status Date / Time No Known Allergies Allergy Verified 10/31/22 10:01 Active Medications: Current Medications Albuterol Sulfate (Albuterol Sulfate (0.083%) 2.5 Mg/3 Ml Vial.Neb) 2.5 mg INHALE ONCE PRN PRN Reason: Shortness of Breath/Wheezing Lactated Ringer's (Lr) 1,000 mls @ 100 mls/hr IVCONT .Q10H SAWYER Lactated Ringer's (Lr) 1,000 mls @ 999 mls/hr IV .Q1H1M SAWYER Stop: 10/31/22 12:00 Home Medications Medication Instructions Recorded Confirmed Last Taken Type sertraline 100 mg tablet 100 mg PO DAILY 12/04/20 10/31/22 10/30/22 History drospirenone 3 mg-ethinyl 1 tab PO DAILY 07/28/22 10/31/22 10/17/22 History estradiol 0.02 mg tablet Exam Exam Date and Time: October 31, 2022 1029 Height,Weight and Vital Signs: Height 5 ft 1 in Weight 88.451 kg Last Vital Signs Temp 97.7 F 10/31/22 10:07 Pulse 74 10/31/22 10:07 Resp 16 10/31/22 10:07 BP 127/63 10/31/22 10:07 Pulse Ox 99 10/31/22 10:07 O2 Del Method 10/31/22 10:07 Pertinent Lab Results Pertinent Lab Results: Laboratory Tests 10/23/22 10/30/22 10/31/22 08:15 13:16 07:38 Urine Test NEGATIVE COVID-19 (DAT) Negative COVID-19 Clin Com See Note Blood Type A Positive Antibody Screen NEGATIVE Airway Mallampati Class: II TM Dist: >3cm Neck ROM: Full Assessment and Plan Assessment Anesthesia Assessment: Anesthesia Plan Discussed and Chart Reviewed Final Anesthetic Review Family History of Problems with Anesthesia: No History of Problems with Anesthesia: No NPO: Yes ASA Class: III Final Preanesthetic Review: No Changes in Pt Med Stat, Meds/Allgs Chart Reviewed, Consent Obtained/Reviewed and Anes Risks/Benef Reviewed Patient Risk: Intermediate Procedure Risk: Intermediate Anesthetic Plan Anesthetic Plan: GA Disposition: Standard PACU
[2022-10-31] MEDS: Lactated Ringers 1,000 ML 999 ML IV (10:50)
[2022-10-31] MEDS: Lactated Ringers 1,000 ML 100 ML IVCONT ×2 (10:50→18:36)
--- NOTE | 2022-10-31 12:34 | PM.OP ---
Brief Operative Note Date of Service: 10/31/22 Pre-op diagnosis: Severe obesity, cholelithiasis and other comorbidities (see below) Post-op diagnosis: same (and chronic cholecystitis) Procedure: INITIAL PATIENT BMI ON PRESENTATION AT OUR OFFICE: 41 kg/m2 LAST BMI BEFORE SURGERY: 36.5 kg/m2 COMORBIDITIES: Cholelithiasis, GERD, hyperlipidemia, thallasemia trait, depression ?The patient presented to the Weight Management Program with significant obesity that was negatively impacting the patient's comorbidities as listed above.? The program is a phased program with a special focus on preoperative medical weight management to promote substantial weight loss and prepare the patients for the second phase of the program: bariatric surgery. The patient participated in an intensive weekly lifestyle ?intervention and exercise program during which the patient ?has lost between the initial office visit and the last preoperative visit 23.4 lbs, or 11.79% of initial actual body weight. It was deemed appropriate for the patient to now have bariatric surgery. In light of the current Covid-19 pandemic and the well documented strong association of obesity and increased risk of worse outcomes if infected with Covid-19 (REFERENCES:https://pubmed.ncbi.nlm.nih.gov/56819821/,?https://pubmed.ncbi.nlm.nih.gov/20470402/), any delay in undergoing bariatric surgery may lead to the patient's worsening health condition and increased?risk of more severe Covid-19 disease if infected. In addition a recent?study from [facility] published in [facility] on 09/30/2021 ([email or web address]) found that, among patients with obesity, substantial weight loss achieved with surgery was associated with improved outcomes of COVID-19 infection. The findings suggest that obesity can be a modifiable risk factor for the severity of COVID-19 infection. In addition, the patient met the BMI-criteria for bariatric surgery based on the BMI on initial presentation. The patient should not be penalized for achieving such weight loss because ?it is not sustainable long-term without surgical intervention and it was achieved in preparation for bariatric surgery ?under my direction and based on my published research ([email or web address] and?[email or web address].[email or web address]/[email or web address]/pdf) ?that a 10% preoperative weight loss improves long-term weight loss after surgery and reduces perioperative complications.? Insurance carriers such as [facility] have endorsed my recommendations ?and have included in their policies criteria to include a 10% preoperative weight loss requirement. I addition, ultrasound of the abdomen and pelvis was consistent with cholelithiasis. Risks of cholecystectomy were discussed with the patient particularly the possibility of conversion to an open surgery, bleeding, infection, obstruction, deep vein thrombosis or pulmonary embolism, bile leak or major bile duct injury that may require surgical intervention. PROCEDURE: Esophago-gastroscopy, laparoscopic lysis of adhesions, laparoscopic sleeve gastrectomy, laparoscopic gastropexy and laparoscopic cholecystectomy INDICATIONS: This is a 32 year-old female who was electively scheduled for laparoscopic, possibly open sleeve gastrectomy. The risks and complications of the procedure were discussed with the patient in advance, particularly the possibility of ; pulmonary embolism; staple line leak; bleeding; GERD; cardiac, pulmonary, or renal complications; as well as long-term problems such as insufficient weight loss, vitamin deficiency, strictures, or ulcers. The patient understood all the risks, and was in agreement to proceed with surgery. I addition, ultrasound of the abdomen and pelvis was consistent with cholelithiasis. Risks of cholecystectomy were discussed with the patient particularly the possibility of conversion to an open surgery, bleeding, infection, obstruction, deep vein thrombosis or pulmonary embolism, bile leak or major bile duct injury that may require surgical intervention. DESCRIPTION OF PROCEDURE: After informed consent was obtained from the patient, the patient was given preoperative antibiotics, and was transferred to the operating room. After successful induction of general anesthesia, pneumatic compression devices were placed on both lower extremities. An upper endoscopy was performed next. The oropharynx and esophagus appeared to be within normal limits. There was no diaphragmatic hernia present consistent with the findings of the preoperative upper GI. The stomach was entered. Then after all fluid and air were suctioned and the stomach was fully decompressed, the scope was withdrawn and secured in the mid esophagus. The patient was then prepped and draped in the usual sterile manner, and abdominal access was established at the right upper quadrant with the Edmond technique. A 12 mm blunt port was inserted, and the abdomen was insufflated with CO2 to a pressure of 15 mmHg. Under direct visualization, additional ports were placed, specifically two 5 mm Versi-step ports to the left upper quadrant, and a 5 mm Versi-Step port to the right upper quadrant. 1% lidocaine plain was used to infiltrate all port sites as well as all fascia defects. Following that, the patient was placed in a steep reverse Trendelenburg position. An additional 5 mm port was placed to the right flank for the Mediflex retractor that was used to retract the left lobe of the liver. The gastro-esophageal fat pad was opened with the ultrasonic device (Thunderbeat, Olympus) and the anterior esophagus and hiatus were exposed. The angle of His was opened with the ultrasonic device the fundus of the stomach from any diaphragmatic and splenic attachments. I then opened the gastrocolic ligament between the transverse colon and the greater curvature of the stomach with the ultrasonic device to enter the lesser sac and facilitate the ligation of the short gastric vessels. I started at a mid-point along the greater curvature and using the Thunderbeat, all short gastric vessels were divided all the way to the angle of His until the left claudia was completely dissected at its entirety. I then divided the gastro-colic ligament distally to a distance of about 3-4 cm proximal to the pylorus. The stomach was then divided transversely with one Endo RODNEY-45 purple, one RODNEY-45 orange load and two RODNEY-60 articulating orange loads using the AEON stapler and loads. Every effort was made that the gastric sleeve had a tubular shape and an even caliber throughout. Once the sleeve resection was completed, the staple line of the gastric sleeve was reinforced with Hemoclips. The resected stomach was retrieved without difficulty from the Edmond port. A gastropexy was then performed in order to prevent postoperative GERD and partial gastric volvulus. Several interrupted 2.0 Surgidac sutures were placed between the sleeve's staple line and the previously divided greater omentum and gastro-colic ligament using the Endo-Stitch device. ?An upper endoscopy was performed. There was no narrowing at the GE junction. The scope was easily advanced all the way to the pylorus which was clearly visualized. There was no narrowing anywhere and the sleeve's caliber was even throughout. The sleeve's staple line was inspected and there was no evidence of ischemia, bleeding or dehiscence. At that point the gastroscope was withdrawn from the patient?s mouth while we were decompressing the bowel and the stomach from any remaining air. I looked into the lesser sac to see how the sleeve was situating and it was situating well. There was no bleeding from the staple line, spleen, or short gastric vessels. The Mediflex retractor was removed, and the undersurface of the liver was inspected and there was no bleeding. The patient was placed in supine position. Attention was then focused on the gallbladder. Two additional 5 mm Versi-step ports were placed, one to the right and superior to the umbilicus, and one at the subxyphoid area at the midline. There were extensiv adhesions between the duodenum and the gallbladder wall that were taken down. The peritoneal attachments of the gallbladder at the triangle of Calot posteriorly and anteriorly were taken down. There was a very large lymph node that was over the cystic duct and artery obscuring completely exposure to the structures.The lymph node was carefully dissected off the cystic artery and duct without injuring them. There was extensive edema and dense fibrotic tissue. The cystic duct and artery were both seen. The cystic duct was overlying the duct and it was densely adherent. I was able to create a window between the two structures. The cystic artery was clipped first. Because it was over the duct and it could not be dissected in extensive length and additionally the clips would be blocking the placement of clips at the cystic duct, the artery was clipped with one clip distally and one proximally. They cystic duct was then dissected and clipped with two clips proximally, one distally and was cut in-between. The right hepatic artery was also in direct contact with the gallbladder wall and required very tedious dissection to avoit injury to it. I was able to mobilize the hepatic artery away from the gallbladder and then using the electrocautery I slowly took down the gallbladder from the liver bed. Small areas of bleeding from the liver parenchyma were controlled with the cautery. After the gallbladder was completely detached from the liver bed, it was placed in an EndoCatch bag and was removed without difficulty from the xiphoid port. We then inspected the clips at the cystic duct and artery and were both in place. There was no active bleeding from the liver bed. I closed the fascial defect of the 12 mm port site with a figure of eight #1 Polysorb suture. Then 30cc Ropivacaine plain with 10 mg of Dexamethasone were used to infiltrate the fascial closure as well as all skin incisions. A total of 7ml of Zynrelef was applied in the Edmond wound. At this point, the abdomen was deflated, all ports were removed under direct vision, and no bleeding was noted from any of the port sites. The skin incisions were irrigated with saline and were closed with 4-0 absorbable monofilament sutures. Steri-Strips and OpSites were used to cover all incisions. The patient was extubated and was transferred in stable condition to the recovery room for further care. I was present and performed all powers parts of the procedure. Mr Curtis was the promotions assistant sales marketing. There were no residents to assist with this case. Raza Garcia MD, PhD, FACS Surgeon: Chris Garcia MD Anesthesia: GETA, local and other (TAP block and 7ml Zynrelef) Was an Wind Instrument Repairer used for this Procedure?: No Wind Instrument Repairer: Bernardo Curtis Estimated blood loss (mL): 10 IV fluids (mL): 3,000 Urine output (mL): 0 (No Michaud to record output) Pathology: other (1) Stomach, 2) Gallbladder) Condition: stable Disposition: PACU
[2022-10-31] MEDS: ceFAZolin Sodium/Dextrose,Iso 2 GM/50 ML PIGGYBACK IV ×2 (13:40→18:43)
[2022-10-31] MEDS: Acetaminophen 1,000 MG/100 ML PIGGYBACK 400 MG IV (14:10)
--- NOTE | 2022-10-31 17:05 | P.DS_ITS ---
DS: Providers Provider Date of Service: 11/01/22 Date of admission: 10/31/22 09:54 Primary care physician: Elizabeth Morgan MD DS: Summary Hospital Course Hospital Course: ADMITTING DIAGNOSIS: obesity,, thalassemia beta, HLD, GERD, Anemia, symptomatic cholelithiasis ? DISCHARGE DIAGNOSIS: same, s/p laparoscopic sleeve gastrectomy and cholecystectomy ? PAST SURGICAL HISTORY: tonsillectomy ? PROCEDURE: upper endoscopy, laparoscopic sleeve gastrectomy and cholecystectomy ? DISCHARGE SUMMARY: ? History of Present Illness: ? The patient is a?32 year-old woman with a BMI of?42 kg/m2 and associated co- morbidities as described above. The patient had extensive work-up,lost?27.2 lbs preoperatively and was electively scheduled for laparoscopic, possible open sleeve gastrectomy and gastropexy. Risks and complications of the surgery were discussed with the patient in advance, particularly the possibility of , pulmonary embolism, anastomotic leak, bleeding, bowel injury, GERD, cardiac, renal or pulmonary complications. The patient understood all the risks and was in agreement with the surgical plan. ? Hospital Course: ? The patient underwent an uneventful laparoscopic sleeve gastrectomy with gastropexy and cholecystectomy on the day of admission. Postoperatively, the patient was transferred to the surgical floor. The patient received IV Acetaminophen and IV dilaudid for pain control. Patient was started on bariatric phase 1 diet POD #0. On postoperative day one, the patient was feeling well without nausea, vomiting, fevers, or tachycardia. The patient had some mild incisional pain and the abdomen was soft. ? On the morning of postoperative day one, the patient was continued on 1 ounce of water or ice every half hour. During the day, the patient did fairly well, having some incisional pain, but able to ambulate adequately and to tolerate liquids well. ? Since the patient is doing well, we decided that the patient was ready to be discharged. The patient was given instructions to follow-up with me next week and to call my office for any fever over 101, persistent abdominal pain, nausea, vomiting, GERD, symptoms of DVT such as calf tenderness, or leg swelling, or pulmonary embolism such as chest pain or shortness of breath. The patient was also instructed to drink 40-60 ounces of liquids per day using the 1-ounce cups. The patient had been given prescriptions for Tylenol for pain, Zofran prn for nausea, and pantoprazole and carafate previously. The patient was encouraged to ambulate and use the incentive spirometer. The patient was allowed to shower, but no baths, and encouraged to stay active at home. All of these instructions were given to the patient personally. All questions were answered and the patient understood all instructions, the instructions were also given to the patient in print. Time Spent with Patient Time attestation: Total time managing care of this patient today ____ minutes. Discharge coordination time: Less than 30 minutes Quality: Safe Use of Opioids Does Pt have an Active Cancer Diagnosis on the Problem List?: No Quality: Stroke Does the patient have a stroke diagnosis?: No Physical Exam Vital Signs: Vital Signs: Last Vital Signs Temp 97.7 F 10/31/22 10:07 Pulse 74 10/31/22 10:07 Resp 16 10/31/22 10:07 BP 127/63 10/31/22 10:07 Pulse Ox 99 10/31/22 10:07 O2 Del Method 10/31/22 10:07 BMI result Body Mass Index 36.8 DS: Data Data Completed and Pending Pending studies at discharge: Pending at discharge 10/31/22 16:23 Surgical [PTH] Routine Labs on day of discharge: Laboratory Results - last 24 hr 10/31/22 07:38 Urine Test NEGATIVE Discharge Plan Discharge Anticipated Discharge Date/Time: 11/01/22 10:00 Patient Disposition: Home, Self-Care Discharge Diagnosis: s/p laparoscopic sleeve gastrectomy and laparoscopic cholecystectomy Referrals: Elizabeth Morgan MD [Primary Care Provider] - 1 Week Discharge Medications: Continued sertraline 100 mg tablet 100 mg PO DAILY pantoprazole 40 mg tablet,delayed release (DR/EC) 40 mg PO DAILY Qty: 30 2RF sucralfate 100 mg/mL suspension 10 ml PO BID Qty: 400 2RF ondansetron HCl 4 mg tablet 4 mg PO Q12H Qty: 20 0RF Rx Instructions: Take only if you have nausea as needed Held drospirenone-ethinyl estradiol 3-0.02 mg tablet 1 tab PO DAILY Hold Instructions: until told to resume by Dr Garcia Discontinued cholecalciferol (vitamin D3) 125 mcg (5,000 unit) capsule 125 mcg PO DAILY Qty: 90 1RF ciprofloxacin HCl [Cipro] 500 mg tablet 500 mg PO Q12H Qty: 14 0RF Discharge Orders: Discharge Order (Routine); Ordered 11/01/22 Ordered By: Carmen Nesbitt Activity on Discharge: No heavy lifting Stand Alone Forms: Patient Portal Discharge page Care Plan Goals: weight loss Health Concerns: obesity and symptomatic cholelithiasis Plan of Treatment: No tub baths, sex or returning to work until discussed at first post op appointm ent. No exercise, alcohol, tobacco or illegal drug use. Continue to use incentive spirometer hourly while awake. Walk in home for 5- 10 minutes every 2 hours during the first week. Follow all instructions in the bariatric handbook and call with any questions.Discharge Instructions 1. Please call your doctor or come back to the emergency room should any new symptoms arise. 2. You will receive a courtesy call from [facility] 24-48 hours after discharge. 3. Activity: abstain from alcohol, practice limited stair climbing, no bending, no driving, no exercise, no illicit substances, no lifting, no sex, no tub bath, no work. 4. Diet: continue as discussed with Dr. Garcia. 5. Dressing Change/Wound Care: Your incision is covered by clear bandages and guaze underneath. If the area is tender, you may apply an ice pack for short intervals (no more than 20 minutes on, followed by at least 20 minutes off). Do not apply heat. Do not use creams, lotions, or topical antibiotics unless instructed to do so by your surgeon. These can cause infection or allergic reaction. 6. Call your doctor if: - Your temperature exceeds 101.5 F - You experience excessive pain or swelling - You have an unexpected reaction to medication - You have excessive bleeding - You experience continued vomiting/nausea - Your incision begins to separate - Your incision shows signs of infection such as increased redness, swelling, excessive pain, heat, or drainage (light blood or clear fluid is normal) 7. General instructions: No lifting greater than 5 lbs for the next 4 weeks. No driving within 24 hours of taking narcotic pain medications. If you do not move your bowels in the next 2 days, please take milk of magnesia over the counter. Please follow the post op diet and do not advance your diet until you are seen in the office in about 2 weeks. Please walk around your home every hour or two to prevent blood clots from forming in your legs. You do not need to wake from sleeping to walk. Please sleep in a bed or couch to prevent kinking at the hips and knees. Please take your incentive spirometer (your lung fitness teacher) home with you and use it for the next few days to prevent pneumonias. You may shower, no hot tubs, baths or swimming pools. Please call the office with any questions or concerns such as increasing abdominal pain, fever, chills, shortness of breath, chest pain, leg pain or swelling, or redness or drainage from your incisions. Please stay on stage 3 diet which includes sugar free clear liquids such as ice pops and jello and broth and crystal light. Avoid all carbonation. Please drink 3 protein shakes with at least 25-30 grams of protein daily or 3 of the Celebrate 4:1 shakes which can be purchased in our office. The Celebrate shakes have all of the bariatric vitamins you need if you consume these shakes. If you are drinking other protein shakes, you will need to purchase the Celebrate multivitamins and calcium that we provide in the office (they will provide all the vitamins you need). Please make sure you are consuming at least 40-60 ounces of water in addition to your 3 protein shakes daily. Do not hesitate to contact the office with any questions at . The patient's medical history has been reviewed and they are considered low risk for post op DVT and therefore DVT prophylaxis is not considered necessary. Travel after surgery was reviewed. The patient has not disclosed any travel plans during the first 30 days after surgery and they have been advised that within the first 30 days after surgery any bus, plane, train or car travel over 2 hours in duration is contraindicated due to the possibility of developing blood clots from immobility. Any travel, needs to include periods of ambulation of 10 minutes in duration every 2 hours.? The patient was instructed to discuss any plans for travel during this period with their bariatric surgeon. Assessment: stable s/p laparoscopic sleeve gastrectomy and laparoscopic cholecystectomy Discharge Date/Time: 11/01/22 11:16
[2022-10-31 17:32] LABS: Hematocrit 37.5 % (37.0-47.0); Hemoglobin 11.5 g/dl (12.0-16.0)
[2022-10-31] MEDS: Famotidine/PF 20 MG/2 ML VIAL IVPUSH ×2 (17:40→21:01)
[2022-10-31 17:50] LABS: Anion Gap 15 (12-20); Blood Urea Nitrogen 5 mg/dL (9-16); Calcium 9.9 mg/dL (8.4-10.2); Carbon Dioxide 22 mmol/L (22-29); Chloride 104 mmol/L (96-108); Creatinine Clr Calc Pharmacy 98.6; Estimated Glomerular Filt Rate > 60; Glucose Random 133 mg/dL (60-115); Potassium 4.2 mmol/L (3.3-5.1); Sodium 137 mmol/L (135-145)
[2022-10-31] MEDS: Lactated Ringers 1,000 ML 150 ML IVCONT (17:51)
[2022-10-31] MEDS: Acetaminophen 1,000 MG/100 ML PIGGYBACK 16.7 MG IV (19:35)
[2022-10-31] MEDS: 0.9 % Sodium Chloride Flush 3 ML SYRINGE IVFLUSH (19:35)
[2022-10-31] MEDS: ondansetron HCL 4 MG/2 ML VIAL IVPUSH (19:36)
[2022-11-01] MEDS: Acetaminophen 1,000 MG/100 ML PIGGYBACK 16.7 MG IV (01:26)
[2022-11-01] MEDS: Lactated Ringers 1,000 ML 150 ML IVCONT ×2 (01:29→07:53)
[2022-11-01 02:00] VITALS: BP 134/83; PULSE 76; RESP 18; TEMP 36.1; O2SAT 100
[2022-11-01 02:02] VITALS: BP 134/83; PULSE 76; RESP 18; TEMP 36.1; O2SAT 100
[2022-11-01 03:12] VITALS: BP 115/67; PULSE 65; RESP 18; TEMP 36.7; O2SAT 100
[2022-11-01] MEDS: ondansetron HCL 4 MG/2 ML VIAL IVPUSH (05:51)
[2022-11-01 07:10] LABS: MANUAL DIFF FLAG NO
[2022-11-01 07:29] LABS: Basophils Percent Auto 0.2 % (0-2); Hemoglobin 10.7 g/dl (12.0-16.0); Imm Gran Abs Auto 0.07 X10*3/uL (0.00-0.03); Imm Gran Pct Auto 0.6 % (0.0-0.4); Lymphocytes Absolute Auto 1.7 X10*3/uL (1.2-4.9); Lymphocytes Percent Auto 14.7 % (20-40); Mean Corpuscular HGB Conc 30.6 g/dl (31.0-35.0); Mean Corpuscular Hemoglobin 17.8 pg (27.0-33.0); Mean Platelet Volume 11.4 fL (9.4-12.3); Monocytes Absolute Auto 0.5 X10*3/uL (0.1-1.2); Monocytes Percent Auto 4.1 % (2-11); Neutrophils Absolute Auto 9.3 x10*3/uL (2.0-8.3); Neutrophils Percent Auto 80.4 % (45-73); Platelet Count 320 X10*3/uL (160-400); Red Blood Count 6.02 X10*6/uL (4.20-5.50); Red Cell Distribution Width 15.6 % (11.0-16.0); White Blood Count 11.5 X10*3/uL (4.8-10.8)
[2022-11-01 07:33] LABS: Anion Gap 17 (12-20); Blood Urea Nitrogen 5 mg/dL (9-16); Calcium 9.7 mg/dL (8.4-10.2); Carbon Dioxide 25 mmol/L (22-29); Chloride 103 mmol/L (96-108); Creatinine Clr Calc Pharmacy 109.3; Estimated Glomerular Filt Rate > 60; Glucose Random 93 mg/dL (60-115); Potassium 4.5 mmol/L (3.3-5.1); Sodium 140 mmol/L (135-145)
[2022-11-01 07:34] LABS: Mean Corpuscular Volume 58.1 fL (80.0-98.0)
[2022-11-01] MEDS: Sertraline HCL 100 MG TABLET PO (07:45)
[2022-11-01] MEDS: 0.9 % Sodium Chloride Flush 3 ML SYRINGE IVFLUSH (07:45)
[2022-11-01 07:58] VITALS: BP 118/58; PULSE 67; RESP 18; TEMP 36.3; O2SAT 98
[2022-11-01] MEDS: Famotidine/PF 20 MG/2 ML VIAL IVPUSH (08:00)
--- NOTE | 2022-11-01 08:33 | PM.PNGS ---
Subjective Subjective Date of Service: 11/01/22 Interval history: POD #1 s/p LSG and cholecystectomy doing well. Sleep most of the night and did not drink much (2 oz's on phase 1) , ambulating and voiding without difficulty. No nausea or abd pain. Using ICS. Physical Exam Vital Signs: Vital Signs: Last Vital Signs Temp 97.4 F 11/01/22 07:58 Pulse 67 11/01/22 07:58 Resp 18 11/01/22 07:58 BP 118/58 L 11/01/22 07:58 Pulse Ox 98 11/01/22 07:58 O2 Del Method 11/01/22 07:58 O2 Flow Rate 2 11/01/22 03:12 BMI result Body Mass Index 36.8 GI: Inspection: Yes incision (all dressings c/d/i ) Palpation (GI): Soft to palpation, nontender, no guarding and no masses Extrem: General: No no pedal edema and No no calf tenderness Objective Data Active Medications Albuterol Sulfate (Albuterol Sulfate (0.083%) 2.5 Mg/3 Ml Vial.Neb) 2.5 mg INHALE ONCE PRN PRN Reason: Shortness of Breath/Wheezing Famotidine (Famotidine/Pf 20 Mg/2 Ml Vial) 20 mg IVPUSH BID [facility] Last Admin: 11/01/22 08:00 Dose: 20 mg Documented By: RAUL Hydromorphone HCl (Hydromorphone Hcl 0.5 Mg/0.5 Ml Syringe) 0.5 mg IVPUSH Q5M PRN; Protocol PRN Reason: Pain, Severe (Pain Scale 7-10) Hydromorphone HCl (Hydromorphone Hcl 0.5 Mg/0.5 Ml Syringe) 0.25 mg IVPUSH Q4H PRN; Protocol PRN Reason: Pain, Moderate (Pain Scale 4-6 Lactated Ringer's (Lr) 1,000 mls @ 100 mls/hr IVCONT .Q10H [facility] Last Admin: 11/01/22 04:41 Dose: Not Given Documented By: ASHLEY Non-Admin Reason: Duplicate Order Lactated Ringer's (Lr) 1,000 mls @ 150 mls/hr IVCONT .Q6H40M [facility] Last Admin: 11/01/22 07:53 Dose: 150 mls/hr Documented By: RAUL Acetaminophen (Ofirmev) 1,000 mg in 100 mls @ 16.7 mls/hr IV .Q6H [facility] Last Infusion: 11/01/22 07:45 Dose: 0 mls/hr Documented By: RAUL Metoclopramide HCl (Metoclopramide Hcl 10 Mg/2 Ml Vial) 10 mg IVPUSH Q6H PRN PRN Reason: Nausea Ondansetron HCl (Ondansetron Hcl 4 Mg/2 Ml Vial) 4 mg IVPUSH Q8H [facility] Last Admin: 11/01/22 05:51 Dose: 4 mg Documented By: ASHLEY Sertraline HCl (Sertraline Hcl 100 Mg Tablet) 100 mg PO DAILY [facility] Last Admin: 11/01/22 07:45 Dose: 100 mg Documented By: RAUL Sodium Chloride (0.9 % Sodium Chloride Flush 3 Ml Syringe) 3 ml IVFLUSH QSHIFT [facility] Last Admin: 11/01/22 07:45 Dose: 3 ml Documented By: RAUL Labs 11/01/22 06:20 11/01/22 06:20 Labs: Laboratory Results - last 24 hr 10/31/22 11/01/22 11/01/22 17:25 06:20 06:20 MCV 58.1 L MCH 17.8 L MCHC 30.6 L RDW 15.6 Plt Count 320 MPV 11.4 Immature Gran % (Auto) 0.6 H Neut % (Auto) 80.4 H Lymph % (Auto) 14.7 L [place] % (Auto) 4.1 Eos % (Auto) 0.0 Baso % (Auto) 0.2 Lymph # (Auto) 1.7 [place] # (Auto) 0.5 Eos # (Auto) 0.0 Baso # (Auto) 0.0 Abs Immat Gran (auto) 0.07 H Absolute Neuts (auto) 9.3 H Absolute Nucleated RBC 0.000 Nucleated RBC % (auto) 0.0 Anion Gap 15 17 Estim Creat Clear Calc 98.6 109.3 Estimated GFR > 60 > 60 Random Glucose 133 H 93 Calcium 9.9 9.7 Procedures Date of Service Date of Service: 11/01/22 Progress Note: A&P Assessment and plan (1) S/P laparoscopic sleeve gastrectomy: Status: Acute Assessment and Plan: POD #1 stable, will be discharged home today on phase 1 diet. All post op instructions reviewed with patient. Has 1 week post op appt scheduled, will be in contact with Dr Garcia later today. Case discussed with Dr Garcia this am. (2) S/P cholecystectomy: Status: Acute Assessment and Plan: see above discharge instructions. (3) Beta thalassemia trait: Status: Acute Assessment and Plan: will monitor Time Spent With Patient Time: Total time managing care of this patient today ____ minutes. Quality Stroke Does the patient have a stroke diagnosis?: No VTE Prior VTE?: No VTE Risk Level:: Surgical - low VTE Device Contraindication: Treatment Not Indicated VTE Drug Contraindication: Treatment Not Indicated
--- NOTE | 2022-11-01 09:37 | MHC.CM.PN ---
MD order for home, self-care, CM acknowledge. MD order for home self-care prior to CM interview opportunity.
--- NOTE | 2022-11-01 13:37 | HO.POSTANES ---
Post Anesthesia Evaluation Post Anesthesia Evaluation Vital Signs: Vital Signs Temp Pulse Resp BP Pulse Ox O2 Del Method O2 Flow Rate 11/01/22 07:58 97.4 F 67 18 118/58 L 98 Room Air 11/01/22 03:12 98.0 F 65 18 115/67 100 Nasal Cannula 2 11/01/22 02:02 96.9 F 76 18 134/83 100 Nasal Cannula 2 11/01/22 02:00 96.9 F 76 18 134/83 100 Nasal Cannula 2 Anesthesia: General Endotracheal-GETA Mental Status: Awake Pain Control: Satisfactory Nausea/Vomiting: None (C) Hydration: Adequate Anesthesia-Related Issues: No Anes. Related Issues
== END 2022-11-01 11:16 | disposition home or self-care (01) | DRG 620 ==
LOC: HO.SSSA 17:09 → HO.S3 17:42
PROVIDERS: Nurse Practitioner; Physician Assistant Surgical; Admitting Provider Surgery; PCP Internal Medicine; Visit Provider Surgery
PROC: 0DB64Z3 Excision of Stomach, Percutaneous Endoscopic Approach, Vertical (ICD-10-PCS; CPT 43845; principal; 2022-10-31 11:50)
PROC: 0FT44ZZ Resection of Gallbladder, Percutaneous Endoscopic Approach (ICD-10-PCS; CPT 47562; 2022-10-31 11:50)
DX: E66.01 Morbid (severe) obesity due to excess calories (principal); K80.10 Calculus of gallbladder with chronic cholecystitis without obstruction; K66.0 Peritoneal adhesions (postprocedural) (postinfection); D64.9 Anemia, unspecified; K21.9 Gastro-esophageal reflux disease without esophagitis; E78.5 Hyperlipidemia, unspecified; F32.A Depression, unspecified; D56.3 Thalassemia minor; Z68.36 Body mass index [BMI] 36.0-36.9, adult; Z20.822 Contact with and (suspected) exposure to COVID-19; Z79.899 Other long term (current) drug therapy
CPT/HCPCS: 36415; 80048; 81025; 85014; 85018; 85025; 86850; 86900; 86901; 87635; 88304; 88307; 88342; A4649; C9088; J0131; J0690; J1100; J1170; J2250; J2370; J2405; J2795; J3010

== ENCOUNTER → 2022-11-07 10:55 | Outpatient (BNVA) | payer OTHER, SELFPAY | PROVIDERS: PCP Internal Medicine; Visit Provider Physician Assistant Surgical | DX: Z13.89 Encounter for screening for other disorder (principal) ==

== ENCOUNTER → 2022-11-20 16:18 | Outpatient (BNVA) | payer OTHER, SELFPAY | PROVIDERS: PCP Internal Medicine; Visit Provider Physician Assistant Surgical | DX: Z13.89 Encounter for screening for other disorder (principal) ==

== ENCOUNTER → 2022-12-12 15:35 | Outpatient (BNVA) | payer OTHER, SELFPAY | PROVIDERS: PCP Internal Medicine; Visit Provider Physician Assistant Surgical | DX: Z13.89 Encounter for screening for other disorder (principal) ==

== ENCOUNTER → 2023-01-02 10:39 | Outpatient (BNVA) | payer OTHER, SELFPAY | PROVIDERS: PCP Internal Medicine; Visit Provider Physician Assistant Surgical | DX: Z13.89 Encounter for screening for other disorder (principal) ==

== ENCOUNTER 2023-04-29 16:00 | Outpatient (AMB) | payer OTHER, SELFPAY ==
--- NOTE | 2023-04-29 16:01 | A.OFFVIS_ITS ---
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 Presents for 6 mo nth post op visit. Weight today is 1 53.6 pounds, with a BMI of 29.? Ther e has been a 68.6 pound weight loss, (initial weight 22 2.2 pounds) since starting the progr am on 08/08/22 refl ecting a 30.8% tot al body weight los s and a weight los s of 34.4 pounds s shirley surgery (oper ative weight 188 p ounds) reflecting a 18.2% TBWL since surgery.? No comp laints of nausea, emesis, abdominal pain or reflux. Re ports infrequent b ut normal bowel mo vements every 1-2 days and uses stoo l softeners regula rly. Started Fiber gummies.? Shobha prather Huy-slim MVI She states her goa l is to weigh 125 pounds. Present recommended meal plan includes: Fa irlife shake 30 gm , zp bar, small m eal, not measuring by forks drinking 32 oz water ? Ex ercise routine inc ludes: walking out side daily, 30 min utes, not tracking calories. Any po st op complication s: none HECTOR: never DM: never HTN: ne sonia Hyperlipidemia : improved GERD: ?0-5 scale ??0 = no symptoms ??1 = symptoms not iceable but not barak thersome 2 =sympt oms bothersome but not daily ? 3 = s ymptoms bothersome and daily 4 = symptoms affect da jalil activities 5 = symptoms are inc apacitating, unabl e to do daily acti vities ? How bad is the heartburn: 0 ? Heartburn whi le lying down: 0 ? Heartburn when st anding up: 0 ? Hea rtburn after meals : 0 ? Does heartbu rn change your t: 0 ? Does heartb urn wake you up fr om sleep: 0 ? Do y ou have difficulty swallowin ? D o you have pain wi th swallowin ? If you take medic ine for your reflu x, does this affec t your daily life: 0 Satisfaction w ith present condit ion - satisfied or not satisfied: s atisfied [facility] Medical History Anemia Anxiety and depression GERD (gastroesophageal reflux disease) Surgical History History of wisdom tooth extraction, class I edentulism Hx of tonsillectomy Family History Father Cancer Anxiety Depression Mother Anxiety Depression Maternal Grandmother No problems noted. Maternal Grandfather Cancer Paternal Grandmother Type 2 diabetes mellitus Paternal Grandfather No problems noted. Brother Alcohol abuse Depression Sister Anxiety Depression Son No problems noted. Social History Housing: House Are you a primary ostomy care nurse to a significant other at home: No Do you presently have visiting nurse or other home services: No Alcohol intake: current Alcohol intake frequency: holidays/special occasions only Patient Tobacco Use Status: Never used Tobacco e-Cigarette/Vaping Use: Never Used Second Hand Smoke Exposure: No service: No Current occupational status: employed Current occupational exposures/hazards: No Hearing needs: No Vision needs: Yes Review of Systems Const All systems reviewed & are unremarkable except as noted in HPI and below Physical Exam Const General: cooperative and no acute distress Orientation/consciousness: patient oriented x3 Resp Effort & Inspection: normal respiratory effort Auscultation: clear to auscultation bilaterally Cardio Rate: regular rate Rhythm: regular rhythm GI Inspection: Yes normal to inspection and Yes incision (well healed) Palpation (GI): Soft to palpation and no masses Neuro General: patient oriented x3 Assessment & Plan Assessment & Plan (1) S/P laparoscopic sleeve gastrectomy: Code(s): Z98.84 - Bariatric surgery status Plan: Change to 26 gm fairlife shake, continue ZP bar, 6 forks protein and 6 forks veg Increase exercise to goal of 300 [place] daily check 6 month labs increase water to 48-64 oz daily rtc 3 months Orders: Orders Vitamin B12 and Folate Today D64.9 - Anemia, unspecified, E78.5 - Hyperlipidemia, unspecified, Z98.84 - Bariatric surgery status Basic Metabolic Panel Today D64.9 - Anemia, unspecified, E78.5 - Hyperlipidemia, unspecified, Z98.84 - Bariatric surgery status C Reactive Protein Today D64.9 - Anemia, unspecified, E78.5 - Hyperlipidemia, unspecified, Z98.84 - Bariatric surgery status Ferritin Today D64.9 - Anemia, unspecified, E78.5 - Hyperlipidemia, unspecified, Z98.84 - Bariatric surgery status Hemoglobin A1c Today D64.9 - Anemia, unspecified, E78.5 - Hyperlipidemia, unspecified, Z98.84 - Bariatric surgery status Insulin Today D64.9 - Anemia, unspecified, E78.5 - Hyperlipidemia, unspecified, Z98.84 - Bariatric surgery status IRON PROFILE Today D64.9 - Anemia, unspecified, E78.5 - Hyperlipidemia, unspecified, Z98.84 - Bariatric surgery status Lipid Panel Today D64.9 - Anemia, unspecified, E78.5 - Hyperlipidemia, unspecified, Z98.84 - Bariatric surgery status PTHI Today D64.9 - Anemia, unspecified, E78.5 - Hyperlipidemia, unspecified, Z98.84 - Bariatric surgery status TSH reflex Free T4 Today D64.9 - Anemia, unspecified, E78.5 - Hyperlipidemia, unspecified, Z98.84 - Bariatric surgery status Vitamin A Today D64.9 - Anemia, unspecified, E78.5 - Hyperlipidemia, unspecified, Z98.84 - Bariatric surgery status Vitamin B1 Today D64.9 - Anemia, unspecified, E78.5 - Hyperlipidemia, unspecified, Z98.84 - Bariatric surgery status Vitamin D 25-OH Total Today D64.9 - Anemia, unspecified, E78.5 - Hyperlipidemia, unspecified, Z98.84 - Bariatric surgery status Zinc Today D64.9 - Anemia, unspecified, E78.5 - Hyperlipidemia, unspecified, Z98.84 - Bariatric surgery status Complete Blood Count Auto Diff Today D64.9 - Anemia, unspecified, E78.5 - Hyperlipidemia, unspecified, Z98.84 - Bariatric surgery status Coding Level of Care Code Est Pt Level 3 (07044) Diagnoses S/P laparoscopic sleeve gastrectomy Z98.84
[2023-04-29 16:06] VITALS: BP 129/73; PULSE 81; TEMP 36.8; O2SAT 98; BMI 29.0
== END 2023-04-29 16:36 | disposition home or self-care (01) ==
PROVIDERS: PCP Internal Medicine; Visit Provider Physician Assistant Surgical
DX: E66.3 Overweight (principal); Z68.29 Body mass index [BMI] 29.0-29.9, adult; Z90.3 Acquired absence of stomach [part of]; Z98.84 Bariatric surgery status
CPT/HCPCS: 99213

== ENCOUNTER 2023-04-29 16:00 | Outpatient (REF) | payer OTHER, SELFPAY ==
[2023-04-29 17:04] LABS: Eosinophils Absolute Auto 0.2 X10*3/uL (0.0-0.4); Eosinophils Percent Auto 2.1 % (0-4); SCAN SMEAR FLAG 1
[2023-04-29 17:06] LABS: Basophils Absolute Auto 0.1 X10*3/uL (0.0-0.2); Basophils Percent Auto 0.9 % (0-2); Hematocrit 37.2 % (37.0-47.0); Hemoglobin 11.2 g/dl (12.0-16.0); Imm Gran Abs Auto 0.03 X10*3/uL (0.00-0.03); Imm Gran Pct Auto 0.3 % (0.0-0.4); Lymphocytes Absolute Auto 4.7 X10*3/uL (1.2-4.9); MANUAL DIFF FLAG SCAN; Mean Corpuscular HGB Conc 30.1 g/dl (31.0-35.0); Mean Corpuscular Hemoglobin 18.4 pg (27.0-33.0); Mean Platelet Volume 10.8 fL (9.4-12.3); Monocytes Absolute Auto 0.5 X10*3/uL (0.1-1.2); Monocytes Percent Auto 4.6 % (2-11); Neutrophils Absolute Auto 4.7 x10*3/uL (2.0-8.3); Neutrophils Percent Auto 46.1 % (45-73); Platelet Count 274 X10*3/uL (160-400); Red Cell Distribution Width 15.7 % (11.0-16.0); White Blood Count 10.1 X10*3/uL (4.8-10.8)
[2023-04-29 17:21] LABS: PLT ABN DIST 1
[2023-04-29 17:22] LABS: Estimated Average Glucose 80 mg/dL; Hemoglobin A1c % 4.4 %
[2023-04-29 17:23] LABS: SLIDE REVIEW VERIFIED
[2023-04-29 18:03] LABS: Folate 17.8 ng/mL (> or = 4.0); Vitamin B12 638 pg/mL (200-900)
[2023-04-30 05:37] LABS: Anion Gap 20 (12-20); Blood Urea Nitrogen 15 mg/dL (9-16); C Reactive Protein 1.05 mg/dL (< or = 0.50); Calcium 10.2 mg/dL (8.4-10.2); Carbon Dioxide 22 mmol/L (22-29); Chloride 105 mmol/L (96-108); Cholesterol 216 mg/dL; Estimated Glomerular Filt Rate > 60; Glucose Random 76 mg/dL (60-115); HDL Cholesterol 77 mg/dL; Iron 75 mcg/dL (30-160); LDL Cholesterol Calculated 118 mg/dl; Percent Iron Saturation 25 % (15-50); Potassium 4.6 mmol/L (3.3-5.1); Sodium 142 mmol/L (135-145); Total Iron Binding Capacity 306 mcg/dL (228-428); Triglycerides 106 mg/dL; Unsaturated Iron Binding 231 ug/dL
[2023-04-30 05:51] LABS: Ferritin 58 ng/mL (10-122); Insulin 5 uU/mL (2-29); TSH reflex Free T4 1.03 uIU/mL (0.32-4.0); Vitamin D 25-OH Total 40.8 ng/mL (>30)
[2023-04-30 19:09] LABS: Calcium (PTHI) 10.5 mg/dL (8.6-10.2); PTHI 77 pg/mL (16-77)
[2023-05-04 12:48] LABS: Vitamin B1 9 nmol/L (8-30)
[2023-05-04 16:08] LABS: Zinc 75 mcg/dL (60-130)
[2023-05-05 10:33] LABS: Vitamin A 73 mcg/dL (38-98)
== END 2023-04-29 16:01 | disposition home or self-care (01) ==
LOC: HO.LAB 16:00
PROVIDERS: PCP Internal Medicine; Visit Provider Physician Assistant Surgical
DX: D64.9 Anemia, unspecified (principal); E78.5 Hyperlipidemia, unspecified; Z98.84 Bariatric surgery status
CPT/HCPCS: 36415; 80048; 80061; 82306; 82607; 82728; 82746; 83036; 83525; 83540; 83970; 84425; 84443; 84590; 84630; 85025; 86140

== ENCOUNTER 2023-07-29 15:32 | Outpatient (AMB) | payer OTHER, SELFPAY ==
--- NOTE | 2023-07-29 10:56 | MHC.OFFVISWM ---
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 Presents for 9 month post op visit. Weight today is 150.4 pounds, with a BMI of 28.4. There has been a 71.8 pound weight loss,(initial weight 222.2 pounds) since starting the program on 08/08/22 reflecting a 32.3% total body weight loss and a weight loss of 37.6 pounds since surgery (operative weight 188 pounds) reflecting a 20 % TBWL since surgery. No complaints of nausea, emesis, abdominal pain or reflux. Reports infrequent but normal bowel movements every 1-2 days and uses stool softeners regularly. She is taking Barislim MVI 2 per day. She reports that she is bothered by extra skin of her abdomen States her goal is to reach 130-135 pounds. 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 Present meal plan includes: coffee w sweet and low and 1TBSP 1/2 and 1/2 (3 of 7 days) or fairlife 26 gm shake in addition 4 days of the week, 9-10 Quest bar 20 gm or pure protein bar, 12-2 but only over 10 minutes grapes w cheese 4 small squares or apple cinnamon rice cake and sometimes w PB, either midmorning or mid afternoon another coffee same as above meal 3/4 - 1 cup protein, 3/4- 1 cup veg, 730 pm apple Drinking 16 oz water ? Exercise routine includes: nothing, walking outside 1-2 x per week, 90 calories has DB method squat machine, no current gym membership [facility] Medical History Anemia Anxiety and depression GERD (gastroesophageal reflux disease) Surgical History History of wisdom tooth extraction, class I edentulism Hx of tonsillectomy Family History Father Cancer Anxiety Depression Mother Anxiety Depression Maternal Grandmother No problems noted. Maternal Grandfather Cancer Paternal Grandmother Type 2 diabetes mellitus Paternal Grandfather No problems noted. Brother Alcohol abuse Depression Sister Anxiety Depression Son No problems noted. Social History Housing: House Are you a primary point of care specialist to a significant other at home: No Do you presently have visiting nurse or other home services: No Alcohol intake: current Alcohol intake frequency: holidays/special occasions only Patient Tobacco Use Status: Never used Tobacco e-Cigarette/Vaping Use: Never Used Second Hand Smoke Exposure: No service: No Current occupational status: employed Current occupational exposures/hazards: No Hearing needs: No Vision needs: Yes Assessment & Plan Assessment & Plan (1) Overweight (BMI 25.0-29.9): Code(s): E66.3 - Overweight Plan: Discussed her stated goal of achieving a healthy weight. Recommend changing her meal plan: Orgain protein shake, 1.5 scoops in 8 oz of unsweetened almond milk from 9am-11am Protein bar (Quest or pure protein as she has many boxes of this at home) from 1pm-3 pm 1/2 c fresh berries if needed meal 7 pm 7 forks protein and 7 forks veg apple Encouraged to use her treadmill at home, speed 3.2, incline 0 through 8 5 days a week, Thursday and Thursday with a goal of 400 calories per day. Return to clinic for telehealth visit in 6 weeks and in person at the end of October for her 1 year postoperative visit. She was additionally encouraged to text her weight weekly as well as if she has any questions or concerns. (2) S/P laparoscopic sleeve gastrectomy: Code(s): Z98.84 - Bariatric surgery status Telehealth Telehealth Location of provider rendering services: practice address Location of patient: address on file Patient Identification confirmed using: Name, : Yes Telehealth method: video Patient verbally consented to treatment: Yes Patient verbally consented to billing insurance company: Yes Patient informed of any privacy concerns related to visit: Yes Minutes spent on Phone/Video with Pt.: 20 Coding Level of Care Code Tele Est Pt Level 3 (37362) Diagnoses Overweight (BMI 25.0-29.9) E66.3 S/P laparoscopic sleeve gastrectomy Z98.84 Time Spent (min) 25
[2023-07-29 10:57] VITALS: BMI 28.4
== END 2023-07-29 17:00 | disposition home or self-care (01) ==
LOC: HO.HBS 15:32
PROVIDERS: PCP Internal Medicine; Visit Provider Physician Assistant Surgical
DX: E66.3 Overweight (principal); Z68.28 Body mass index [BMI] 28.0-28.9, adult; Z90.3 Acquired absence of stomach [part of]; Z98.84 Bariatric surgery status
CPT/HCPCS: 99213

== ENCOUNTER → 2023-07-29 15:32 | Outpatient (BNVA) | payer OTHER, SELFPAY | PROVIDERS: PCP Internal Medicine; Visit Provider Physician Assistant Surgical | DX: Z98.84 Bariatric surgery status (principal); E78.5 Hyperlipidemia, unspecified; D64.9 Anemia, unspecified ==

== ENCOUNTER 2023-10-28 15:55 | Outpatient (AMB) | payer OTHER, SELFPAY ==
--- NOTE | 2023-10-28 15:58 | A.OFFVIS_ITS ---
Intake VS Expanded 10/28/23 16:06 BP 106/58 L Blood Pressure Location Rt brachial Blood Pressure Position Sitting Pulse 79 Pulse Source Pulse Oximeter Temp 98.6 F Temperature Source Temporal Artery Scan Pulse Oximetry 100 Oxygen Delivery Method Room Air Height 5 ft 1 in Weight 151 lb 6.4 oz BMI 28.6 Body Fat % 32.7 Body Fat Mass 49.4 Fat Free Mass 101.8 Visceral Fat Rating 5.0 Body Water % 48.3 Body Water Mass 73.0 Muscle Mass/Score 96.8 Basal Metabolic Rate/Score 1,404 Intake Visit Reasons: (ov) PO LSG 10/31/22 Asphalt Smoother Required: No Allergies No Known Allergies Allergy (Verified 10/28/23 16:02) Medication List - Last Reconciled 10/28/23 by KOURTNEY Burkett drospirenone-ethinyl estradiol 3-0.02 mg 1 tab PO DAILY lorazepam mg PO multivitamin 1 tab PO DAILY sertraline 200 mg PO DAILY HPI HPI Comments History of Present Illness Details This?a?32?yo female who is s/p LSG without hiatal hernia repair on?10/31/22. Presents for 1 year post op visit. Weight today is 151.4 pounds, with a BMI of 28.6. There has been a 70.8 pound weight loss,(initial weight 222.2 pounds) since starting the program on 08/08/22 reflecting a 31.8% total body weight loss and a weight loss of 36.6 pounds since surgery (operative weight 188 pounds) reflecting a 19.4 % TBWL since surgery. No complaints of nausea, emesis, abdominal pain or reflux. Reports infrequent but normal bowel mo vements every 1-2 days and uses stool softeners regularly. She is taking Barislim MVI 2 per day. She reports that she is sometimes bothered by extra skin of her abdomen but not too much at this time. She has been significantly stressed lately with her and her child has been sick for the last 10 days w a fever over 102. She has been in contact with her sons insect control aide and will be discussing with them this afternoon. She does not currently have a therapist and is taking antidepressants and anxiolytics with some effect. States her goal is to reach 130-135 pounds. 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 She has changed her meal plan using RTD Premier protein shake in black coffee quest chips 1 x per week meal soup or taco or apple w PB previous meal plan includes: Orgain protein shake, 1.5 scoops in 8 oz of unsweetened almond milk from 9am- 11am Protein bar (Quest or pure protein as she has many boxes of this at home) from 1pm-3 pm 1/2 c fresh berries if needed meal 7 pm 7 forks protein and 7 forks veg apple Drinking 16 oz water ? Exercise routine includes: stairs at home, just joined [facility] Any post op complications: none HECTOR: never DM: never HTN: resolved Hyperlipidemia: resolved GERD:?0-5 scale ??0 = no symptoms ??1 = symptoms noticeable but not bothersome 2 =symptoms bothersome but not daily ? 3 = symptoms bothersome and daily 4 = symptoms affect daily activities 5 = symptoms are incapacitating, unable to do daily activities ? How bad is the heartburn: 0 ? Heartburn while lying down: 0 ? Heartburn when standing up: 0 ? Heartburn after meals: 0 ? Does heartburn change your diet: 0 ? Does heartburn wake you up from sleep: 0 ? Do you have difficulty swallowin ? Do you have pain with swallowin ? If you take medicine for your reflux, does this affect your daily life: 0 Satisfaction with present condition - satisfied or not satisfied: satisfied [facility] Medical History Anemia Anxiety and depression GERD (gastroesophageal reflux disease) Surgical History History of wisdom tooth extraction, class I edentulism Hx of tonsillectomy Family History Father Cancer Anxiety Depression Mother Anxiety Depression Maternal Grandmother No problems noted. Maternal Grandfather Cancer Paternal Grandmother Type 2 diabetes mellitus Paternal Grandfather No problems noted. Brother Alcohol abuse Depression Sister Anxiety Depression Son No problems noted. Social History Housing: House Are you a primary acute care clinical nurse specialist to a significant other at home: No Do you presently have visiting nurse or other home services: No Alcohol intake: current Alcohol intake frequency: holidays/special occasions only Patient Tobacco Use Status: Never used Tobacco e-Cigarette/Vaping Use: Never Used Second Hand Smoke Exposure: No service: No Current occupational status: employed Current occupational exposures/hazards: No Hearing needs: No Vision needs: Yes Review of Systems Const All systems reviewed & are unremarkable except as noted in HPI and below Physical Exam Const General: cooperative and no acute distress Orientation/consciousness: patient oriented x3 Resp Effort & Inspection: normal respiratory effort Auscultation: clear to auscultation bilaterally Cardio Rate: regular rate Rhythm: regular rhythm GI Inspection: Yes normal to inspection and Yes incision (well healed) Palpation (GI): Soft to palpation and no masses Neuro General: patient oriented x3 Assessment & Plan Assessment & Plan (1) S/P laparoscopic sleeve gastrectomy: Code(s): Z98.84 - Bariatric surgery status Plan: Will check yearly labs. Recommend changing meal plan to 1/2 ready to drink Premier protein and 2 meals with 7 forks of protein and 7 forks of vegetables, fresh fruit between if needed including berries or apple. Encouraged to go to the gym daily in the morning. (2) Depression: Code(s): F32.A - Depression, unspecified Plan: Referral to our behavioral health specialist to help guide options for outpatient treatment. Orders: Orders Hemoglobin A1c Today D64.9 - Anemia, unspecified, E78.5 - Hyperlipidemia, unspecified, Z83.2 - Family history of diseases of the blood and blood-forming organs and certain disorders involving the immune mechanism, Z.84 - Bariatric surgery status Lipid Panel Today D64.9 - Anemia, unspecified, E78.5 - Hyperlipidemia, unspecified, Z83.2 - Family history of diseases of the blood and blood-forming organs and certain disorders involving the immune mechanism, Z98.84 - Bariatric surgery status Vitamin B12 and Folate Today D64.9 - Anemia, unspecified, E78.5 - Hyperlipidemia, unspecified, Z83.2 - Family history of diseases of the blood and blood-forming organs and certain disorders involving the immune mechanism, Z.84 - Bariatric surgery status Zinc Today D64.9 - Anemia, unspecified, E78.5 - Hyperlipidemia, unspecified, Z83.2 - Family history of diseases of the blood and blood-forming organs and certain disorders involving the immune mechanism, Z98.84 - Bariatric surgery status Vitamin B1 Today D64.9 - Anemia, unspecified, E78.5 - Hyperlipidemia, unspecified, Z83.2 - Family history of diseases of the blood and blood-forming organs and certain disorders involving the immune mechanism, Z98.84 - Bariatric surgery status Vitamin A Today D64.9 - Anemia, unspecified, E78.5 - Hyperlipidemia, unspecified, Z83.2 - Family history of diseases of the blood and blood-forming organs and certain disorders involving the immune mechanism, Z98.84 - Bariatric surgery status Insulin Today D64.9 - Anemia, unspecified, E78.5 - Hyperlipidemia, unspecified, Z83.2 - Family history of diseases of the blood and blood-forming organs and certain disorders involving the immune mechanism, Z98.84 - Bariatric surgery status Complete Blood Count Auto Diff Today D64.9 - Anemia, unspecified, E78.5 - Hyperlipidemia, unspecified, Z83.2 - Family history of diseases of the blood and blood-forming organs and certain disorders involving the immune mechanism, Z98.84 - Bariatric surgery status IRON PROFILE Today D64.9 - Anemia, unspecified, E78.5 - Hyperlipidemia, unspecified, Z83.2 - Family history of diseases of the blood and blood-forming organs and certain disorders involving the immune mechanism, Z98.84 - Bariatric surgery status C Reactive Protein Today D64.9 - Anemia, unspecified, E78.5 - Hyperlipidemia, unspecified, Z83.2 - Family history of diseases of the blood and blood-forming organs and certain disorders involving the immune mechanism, Z98.84 - Bariatric surgery status TSH reflex Free T4 Today D64.9 - Anemia, unspecified, E78.5 - Hyperlipidemia, unspecified, Z83.2 - Family history of diseases of the blood and blood-forming organs and certain disorders involving the immune mechanism, Z98.84 - Bariatric surgery status Ferritin Today D64.9 - Anemia, unspecified, E78.5 - Hyperlipidemia, unspecified, Z83.2 - Family history of diseases of the blood and blood-forming organs and certain disorders involving the immune mechanism, Z98.84 - Bariatric surgery status Vitamin D 25-OH Total Today D64.9 - Anemia, unspecified, E78.5 - Hyperlipidemia, unspecified, Z83.2 - Family history of diseases of the blood and blood-forming organs and certain disorders involving the immune mechanism, Z98.84 - Bariatric surgery status Basic Metabolic Panel Today D64.9 - Anemia, unspecified, E78.5 - Hyperlipidemia, unspecified, Z83.2 - Family history of diseases of the blood and blood-forming organs and certain disorders involving the immune mechanism, Z98.84 - Bariatric surgery status Coding Level of Care Code Est Pt Level 4 (69030) Diagnoses S/P laparoscopic sleeve gastrectomy Z98.84 Depression F32.A Time Spent (min) 35
[2023-10-28 16:06] VITALS: BP 106/58; PULSE 79; TEMP 37; O2SAT 100; BMI 28.6
== END 2023-10-28 16:39 | disposition home or self-care (01) ==
PROVIDERS: PCP Internal Medicine; Visit Provider Physician Assistant Surgical
DX: E66.3 Overweight (principal); Z68.28 Body mass index [BMI] 28.0-28.9, adult; Z98.84 Bariatric surgery status; Z90.3 Acquired absence of stomach [part of]; F32.A Depression, unspecified
CPT/HCPCS: 99214

== ENCOUNTER → 2023-10-28 15:55 | Outpatient (BNVA) | payer OTHER, SELFPAY | PROVIDERS: PCP Internal Medicine; Visit Provider Physician Assistant Surgical | DX: Z98.84 Bariatric surgery status (principal); E78.5 Hyperlipidemia, unspecified; D64.9 Anemia, unspecified ==

== ENCOUNTER 2023-11-02 14:14 | Outpatient (REF) | payer OTHER, SELFPAY ==
[2023-11-02 14:28] LABS: MANUAL DIFF FLAG NO
[2023-11-02 15:15] LABS: Basophils Absolute Auto 0.1 X10*3/uL (0.0-0.2); Basophils Percent Auto 0.8 % (0-2); Eosinophils Absolute Auto 0.4 X10*3/uL (0.0-0.4); Eosinophils Percent Auto 4.1 % (0-4); Hematocrit 37.6 % (37.0-47.0); Hemoglobin 11.3 g/dl (12.0-16.0); Imm Gran Abs Auto 0.01 X10*3/uL (0.00-0.03); Imm Gran Pct Auto 0.1 % (0.0-0.4); Lymphocytes Absolute Auto 3.7 X10*3/uL (1.2-4.9); Mean Corpuscular HGB Conc 30.1 g/dl (31.0-35.0); Mean Corpuscular Hemoglobin 18.2 pg (27.0-33.0); Mean Platelet Volume 10.7 fL (9.4-12.3); Monocytes Absolute Auto 0.4 X10*3/uL (0.1-1.2); Monocytes Percent Auto 4.5 % (2-11); Neutrophils Absolute Auto 4.3 x10*3/uL (2.0-8.3); Neutrophils Percent Auto 48.5 % (45-73); Platelet Count 274 X10*3/uL (160-400); Red Cell Distribution Width 17.1 % (11.0-16.0); White Blood Count 8.8 X10*3/uL (4.8-10.8)
[2023-11-02 15:16] LABS: Mean Corpuscular Volume 60.6 fL (80.0-98.0)
[2023-11-02 15:20] LABS: Estimated Average Glucose 77 mg/dL; Hemoglobin A1c % 4.3 % (<6.0)
[2023-11-02 15:53] LABS: Anion Gap 14 (12-20); Blood Urea Nitrogen 17 mg/dL (9-16); C Reactive Protein 0.59 mg/dL (< or = 0.50); Calcium 9.9 mg/dL (8.4-10.2); Carbon Dioxide 25 mmol/L (22-29); Chloride 107 mmol/L (96-108); Cholesterol 198 mg/dL (<200); Estimated Glomerular Filt Rate > 60; Glucose Random 81 mg/dL (60-115); HDL Cholesterol 77 mg/dL (>40); Iron 85 mcg/dL (30-160); LDL Cholesterol Calculated 95 mg/dL (<100); Percent Iron Saturation 28 % (15-50); Sodium 142 mmol/L (135-145); Total Iron Binding Capacity 301 mcg/dL (228-428); Triglycerides 132 mg/dL (<150); Unsaturated Iron Binding 216 ug/dL
[2023-11-02 16:02] LABS: Ferritin 56 ng/mL (10-122); Insulin 22 uU/mL (2-29); TSH reflex Free T4 1.18 uIU/mL (0.32-4.0); Vitamin D 25-OH Total 30.5 ng/mL (>30)
[2023-11-02 16:15] LABS: Folate > 20.0 ng/mL (> or = 4.0); Vitamin B12 565 pg/mL (200-900)
[2023-11-06 06:59] LABS: Zinc 72 mcg/dL (60-130)
[2023-11-06 17:43] LABS: Vitamin B1 8 nmol/L (8-30)
[2023-11-07 07:38] LABS: Vitamin A 57 mcg/dL (38-98)
== END 2023-11-02 14:15 | disposition home or self-care (01) ==
LOC: HO.LAB 14:14
PROVIDERS: PCP Internal Medicine; Visit Provider Physician Assistant Surgical
DX: E78.5 Hyperlipidemia, unspecified (principal); D64.9 Anemia, unspecified; Z98.84 Bariatric surgery status; Z83.2 Family history of diseases of the blood and blood-forming organs and certain disorders involving the immune mechanism
CPT/HCPCS: 36415; 80048; 80061; 82306; 82607; 82728; 82746; 83036; 83525; 83540; 84425; 84443; 84590; 84630; 85025; 86140

== ENCOUNTER 2023-11-09 15:17 | Outpatient (AMB) | payer OTHER, SELFPAY ==
--- NOTE | 2023-11-21 15:38 | MHC.WMTHER ---
Intake Intake Visit Reasons: VIDEO PO LSG 10/31/22 Allergies No Known Allergies Allergy (Verified 10/28/23 16:02) [facility] Medical History Anemia Anxiety and depression GERD (gastroesophageal reflux disease) Surgical History History of wisdom tooth extraction, class I edentulism Hx of tonsillectomy Family History Father Cancer Anxiety Depression Mother Anxiety Depression Maternal Grandmother No problems noted. Maternal Grandfather Cancer Paternal Grandmother Type 2 diabetes mellitus Paternal Grandfather No problems noted. Brother Alcohol abuse Depression Sister Anxiety Depression Son No problems noted. Social History Housing: House Are you a primary before and after school daycare worker to a significant other at home: No Do you presently have visiting nurse or other home services: No Alcohol intake: current Alcohol intake frequency: holidays/special occasions only Patient Tobacco Use Status: Never used Tobacco e-Cigarette/Vaping Use: Never Used Second Hand Smoke Exposure: No service: No Current occupational status: employed Current occupational exposures/hazards: No Hearing needs: No Vision needs: Yes Behavioral Health Assessment Weight Management Therapy Therapy Notes Details Patient reported struggling at home, increase stress with and kids, cannot find outside therapist. is paying out of pocket for one. (intake)Patient is doing well in the program, motivated, dedicated, has lost weight. She reported having minimal coping mechanism for her anxiety that does not have involve food. We talked about different coping skills (cold weather walks, meditation/prayer, journaling, to start practicing so that she does not turn to food. She had an extra protein bar last week when she was struggling. Presenting Concerns Referral Source provider Reason for referral anxiety, depression Precipitating Event increase stress at home Assessment & Plan Assessment & Plan (1) Anxiety: Code(s): F41.9 - Anxiety disorder, unspecified (2) Depression: Code(s): F32.A - Depression, unspecified (3) Morbid obesity: Code(s): E66.01 - Morbid (severe) obesity due to excess calories Plan Patient is one year post weight loss surgery, she reported struggling recently and wanting therapy. Patient will be referred to outpatient mental health tx. SHe will be seen again as well. Telehealth Telehealth Location of provider rendering services: other Location of patient: address on file Patient Identification confirmed using: Name, : Yes Telehealth method: voice only Patient verbally consented to treatment: Yes Patient verbally consented to billing insurance company: Yes Patient informed of any privacy concerns related to visit: Yes Minutes spent on Phone/Video with Pt.: 30 Coding Level of Care Code Tele Psytx 45 mins (72761) Diagnoses Anxiety F41.9 Depression F32.A Morbid obesity E66.01 Time Spent (min) 30
== END 2023-11-21 15:38 | disposition home or self-care (01) ==
PROVIDERS: PCP Internal Medicine; Visit Provider Counselor Mental Health
DX: F41.9 Anxiety disorder, unspecified (principal); F32.A Depression, unspecified; E66.01 Morbid (severe) obesity due to excess calories
CPT/HCPCS: 90834

== ENCOUNTER → 2023-11-09 15:17 | Outpatient (BNVA) | payer OTHER, SELFPAY | PROVIDERS: PCP Internal Medicine; Visit Provider Counselor Mental Health ==

== ENCOUNTER 2023-12-09 16:27 | Outpatient (AMB) | payer OTHER, SELFPAY ==
[2023-12-09 07:53] VITALS: BMI 28.2
--- NOTE | 2023-12-09 07:53 | A.OFFVIS_ITS ---
Intake VS Expanded 12/09/23 07:53 Height 5 ft 1 in Weight 149 lb 6.4 oz BMI 28.2 Body Fat % 33.2 Body Fat Mass 49.6 Fat Free Mass 99.8 Visceral Fat Rating 11 Body Water % 45.8 Body Water Mass 68.6 Muscle Mass/Score 94 Basal Metabolic Rate/Score 1,348 Intake Visit Reasons: (tv) PO LSG 10/31/22 Allergies No Known Allergies Allergy (Verified 10/28/23 16:02) HPI HPI Comments History of Present Illness Details This?a?32?yo female who is s/p LSG without hiatal hernia repair on?10/31/22. Presents for 1 year 1 month post op visit. Weight today is 149.4 pounds, with a BMI of 28.2. There has been a 72.8 pound weight loss,(initial weight 222.2 pounds) since starting the program on 08/08/22 reflecting a 32.7% total body weight loss and a weight loss of 38.6 pounds since surgery (operative weight 188 pounds) reflecting a 20.5 % TBWL since surgery. No complaints of nausea, emesis, abdominal pain or reflux. Reports infrequent but normal bowel movements every 1-2 days and uses stool softeners regularly. She is taking Barislim MVI 2 per day. She reports that she is sometimes bothered by extra skin of her abdomen but not too much at this time. She reports that she is tired due to her son being sick but she made it to the gym for the first time today. She did stairmaster for 10 minutes and treadmill for 35 minutes. 250 calories. States she is going to go back to [employer] 30 gm shake States her goal is to reach 130-135 pounds. 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 previous meal plan includes: Orgain protein shake, 1.5 scoops in 8 oz of unsweetened almond milk from 9am- 11am Protein bar (Quest or pure protein as she has many boxes of this at home) from 1pm-3 pm 1/2 c fresh berries if neededmeal 7 pm 7 forks protein and 7 forks veg apple Drinking 20-30 oz water ?Exercise routine includes: stairs at home, just joined [facility] Medical History Anemia Anxiety and depression GERD (gastroesophageal reflux disease) Surgical History History of wisdom tooth extraction, class I edentulism Hx of tonsillectomy Family History Father Cancer Anxiety Depression Mother Anxiety Depression Maternal Grandmother No problems noted. Maternal Grandfather Cancer Paternal Grandmother Type 2 diabetes mellitus Paternal Grandfather No problems noted. Brother Alcohol abuse Depression Sister Anxiety Depression Son No problems noted. Social History Housing: House Are you a primary primary care sales representative to a significant other at home: No Do you presently have visiting nurse or other home services: No Alcohol intake: current Alcohol intake frequency: holidays/special occasions only Patient Tobacco Use Status: Never used Tobacco e-Cigarette/Vaping Use: Never Used Second Hand Smoke Exposure: No service: No Current occupational status: employed Current occupational exposures/hazards: No Hearing needs: No Vision needs: Yes Physical Exam Vital Signs: BMI result Body Mass Index 28.2 Assessment & Plan Assessment & Plan (1) Overweight (BMI 25.0-29.9): Code(s): E66.3 - Overweight Plan: Patient was struggling due to significant illness with her son. This has improved and she is now trying to commit to herself. She went to the gym for the 1st time today and is encouraged to continue to do so. Suggest utilizing (her preference) [employer] life ready to drink 30 g shake, half with an additional 4 oz of unsweetened almond milk in the morning with the other half mid day. Meal with 7 forks of protein and 6 forks of vegetables. She may have fresh fruit throughout the day including fresh berries, apple, pear, kiwi. If she wishes to incorporate a protein bar, she may do so. Previously using Quest or pure protein. If she adds that, would not have the other half of shake. She certainly may substitute half the shake for a Malay yogurt. We will have her return to the office in approximately 6 weeks with the understanding that she will text with any questions or concerns. Telehealth Telehealth Location of provider rendering services: practice address Location of patient: address on file Patient Identification confirmed using: Name, : Yes Telehealth method: voice only Patient verbally consented to treatment: Yes Patient verbally consented to billing insurance company: Yes Patient informed of any privacy concerns related to visit: Yes Minutes spent on Phone/Video with Pt.: 20 Coding Level of Care Code Tele Est Pt Level 3 (84459) Diagnoses Overweight (BMI 25.0-29.9) E66.3 Time Spent (min) 25
== END 2023-12-09 16:59 | disposition home or self-care (01) ==
LOC: HO.HBS 16:28
PROVIDERS: PCP Internal Medicine; Visit Provider Physician Assistant Surgical
DX: E66.3 Overweight (principal); Z68.28 Body mass index [BMI] 28.0-28.9, adult; Z90.3 Acquired absence of stomach [part of]; Z98.84 Bariatric surgery status
CPT/HCPCS: 99442

== ENCOUNTER → 2023-12-09 16:27 | Outpatient (BNVA) | payer OTHER, SELFPAY | PROVIDERS: PCP Internal Medicine; Visit Provider Physician Assistant Surgical | DX: Z98.84 Bariatric surgery status (principal); E78.5 Hyperlipidemia, unspecified; D64.9 Anemia, unspecified; Z83.2 Family history of diseases of the blood and blood-forming organs and certain disorders involving the immune mechanism ==

== ENCOUNTER 2023-12-22 15:30 | Outpatient (AMB) | payer OTHER, SELFPAY ==
[2023-12-22 15:30] VITALS: BP 120/72; PULSE 69; O2SAT 98; BMI 29.3
--- NOTE | 2023-12-22 15:30 | A.OFFPC_ITS ---
Vital Signs 12/22/23 15:30 Height 5 ft 1 in Weight 155 lb 4 oz BMI 29.3 BP 120/72 Blood Pressure Location Rt brachial Position Sitting Pulse 69 Pulse Source Pulse Oximeter Pulse Oximetry (%) 98 Oxygen Delivery Method Room Air Intake Visit Reasons: Annual Physical Allergies No Known Allergies Allergy (Verified 12/22/23 15:31) Medication List - Last Reconciled 12/22/23 by Elizabeth Morgan MD drospirenone-ethinyl estradiol 3-0.02 mg 1 tab PO DAILY lorazepam mg PO multivitamin 1 tab PO DAILY sertraline 200 mg PO DAILY Tobacco use date assessed: 12/22/23 Dental Screening Dental Screen Date: 12/22/23 Did you have a dental visit in the last 12 months?: Yes Did you have a dental problem in the last 6 months where you did not have access to dental care?: No Was dental information given to patient?: Patient has dentist HPI Annual Physical HPI Details Patient is a 3-year-old female came in today for physical examination Patient have beta thalassemia trait, her hemoglobin is always slightly low with microcytic indices Last time she had labs was October of this year Patient have OBGYN with [facility] She offer no new complaints today. [facility] Medical History Anxiety and depression GERD (gastroesophageal reflux disease) Anemia Surgical History History of wisdom tooth extraction, class I edentulism Hx of tonsillectomy Family History Father Cancer Anxiety Depression Mother Anxiety Depression Maternal Grandmother No problems noted. Maternal Grandfather Cancer Paternal Grandmother Type 2 diabetes mellitus Paternal Grandfather No problems noted. Brother Alcohol abuse Depression Sister Anxiety Depression Son No problems noted. Social History Housing: House Are you a primary rn primary care to a significant other at home: No Do you presently have visiting nurse or other home services: No Alcohol intake: current Alcohol intake frequency: holidays/special occasions only Patient Tobacco Use Status: Never used Tobacco e-Cigarette/Vaping Use: Never Used Second Hand Smoke Exposure: No service: No Current occupational status: employed Current occupational exposures/hazards: No Cognitive needs: No Hearing needs: No Vision needs: Yes Questionnaire Thrive Questionnaire Date Thrive assessed: 12/17/22 AUDIT C Alcohol Use Questionnaire (AUDIT-C) 1. How often do you have a drink containing alcohol?: Monthly or less 2. How many drinks containing alcohol do you have on a typical day when you are drinking?: 1 or 2 3. How often do you have six or more drinks on one occasion?: Never Total Score: 1 Score Reviewed/Action Taken: Yes THAI-7 AMB Questionnaire THAI-7 Date THAI - 7 assessed: 12/17/22 Source: Developed by Drs. Pito Espinosa, Sissy Oseguera, Reggie Onofre and colleagues, with an educational betty from [employer]. Review of Systems Const Denies chills, Denies fever(s) and Denies headache(s) Eyes Denies blurry vision ENT Denies headache(s), Denies nasal discharge, Denies nasal obstruction, Denies odynophagia and Denies sinus pain Card Denies chest pain at rest and Denies chest pain with activity Resp Denies cough and Denies hemoptysis GI Denies diarrhea, Denies odynophagia, Denies vomiting and Denies hematemesis Reports as per HPI Musc Denies abnormal gait Skin/Breast Reports as per HPI Neuro Denies Neuro-related abnormal movements, Denies Abnormal speech present, Denies abnormal gait, Denies headache(s) and Denies Sensory deficit (Neuro) Psych Denies mood swings and Denies paranoia Endo Reports as per HPI Lico/Lymph Reports as per HPI Aller/Immun Reports as per HPI Physical exam (Primary Care) Vital Signs: Last Vital Signs Pulse 69 12/22/23 15:30 BP 120/72 12/22/23 15:30 Pulse Ox 98 12/22/23 15:30 Oxygen Delivery Method Room Air 12/22/23 15:30 BMI result Body Mass Index 29.3 Tobacco/Smoking Status: Tobacco use Status Tobacco use date assessed 12/22/23 12/22/23 15:34 Patient Tobacco Use Status Never used Tobacco 12/22/23 15:34 e-Cigarette/Vaping Use Never Used 12/22/23 15:34 Thrive Assessment: Date of Thrive Assessment Date Thrive assessed 12/17/22 12/22/23 15:34 Const General: cooperative, comfortable and no acute distress Orientation/consciousness: patient oriented x3 HENMT Head: Yes normocephalic and Yes atraumatic Eyes General: appearance normal, both eyes and all related structures Pupils: Equal, round and reactive pupils present EOM: EOMs intact bilaterally Neck Neck: Yes supple and No lymphadenopathy Thyroid: Thyroid normal Lymphatic: no lymphadenopathy noted Resp Effort & Inspection: normal respiratory effort and able to speak in complete sentences Auscultation: clear to auscultation bilaterally Cardio Heart sounds: S1 normal heart sound present and S2 normal heart sound present GI Palpation (GI): Soft to palpation and nontender Auscultation: normal bowel sounds General: Yes no CVA tenderness Back/Spine/Pelvis Back: no CVA tenderness Skin General skin exam: elasticity normal and turgor normal Neuro General: patient oriented x3 and gait normal Cranial nerves: Yes Equal, round and reactive pupils present Speech: No Abnormal speech present Sensory Exam: No Sensory deficit (Neuro) Coordination: tandem gait normal and Romberg test negative Extrem General: Yes normal exam except as noted and No edema Assessment and Plan Assessment & Plan (1) Encounter for general adult medical examination with abnormal findings: Code(s): Z00.01 - Encounter for general adult medical examination with abnormal findings (2) Beta thalassemia trait: Code(s): D56.3 - Thalassemia minor (3) Overweight (BMI 25.0-29.9): Code(s): E66.3 - Overweight Plan Patient is a 3-year-old female came in today for physical examination Patient have beta thalassemia trait, her hemoglobin is always slightly low with microcytic indices Last time she had labs was October of this year Patient have OBGYN with [facility] BMI is elevated at 29.3 need to lose weight Psychiatric medications through Psychiatry She offer no new complaints today. Coding Level of Care Code Est Pt Prev Care 18-39y(27256) Diagnoses Encounter for general adult medical examination with abnormal findings Z00. Beta thalassemia trait D56.3 Overweight (BMI 25.0-29.9) E66.3
== END 2023-12-22 15:49 | disposition home or self-care (01) ==
PROVIDERS: Visit Provider Internal Medicine
DX: Z00.01 Encounter for general adult medical examination with abnormal findings (principal); D56.3 Thalassemia minor; E66.3 Overweight
CPT/HCPCS: 99395

== ENCOUNTER 2024-08-31 10:30 | Outpatient (AMB) | payer OTHER, SELFPAY ==
--- NOTE | 2024-08-31 10:31 | A.OFFPC_ITS ---
Intake Visit Reasons: Discuss Med Allergies No Known Allergies Allergy (Verified 12/22/23 15:31) Medication List - Last Reconciled 08/31/24 by Elizabeth Morgan MD clotrimazole 1% (Antifungal (clotrimazole)) 1 appl topical BID drospirenone-ethinyl estradiol 3-0.02 mg 1 tab PO DAILY lorazepam mg PO multivitamin 1 tab PO DAILY sertraline 200 mg PO DAILY Tobacco use date assessed: 12/22/23 Dental Screening Dental Screen Date: 12/22/23 HPI Discuss Med HPI Details Patient is a 33-year-old female this is a telemedicine visit Patient has been seeing a psych med prescriber through [facility] Patient says that the prescriber has stopped the practice and she does not have anyone to prescribe the medication at this point She is looking for new provider Meanwhile she is requesting if I can fill her sertraline 200 mg And gave her few tablets of lorazepam, patient is about to travel and she feels anxious during travel I have sent 30 day supply of sertraline And 10 tablets of 0.5 mg of lorazepam Patient is aware, that this medication is Habit forming and may cause Psychological dependence, It can cause drowsiness, dizziness, cognitive impairment , slowing of reflexes along with some other side effect . [facility] Medical History Anxiety and depression GERD (gastroesophageal reflux disease) Anemia Surgical History History of wisdom tooth extraction, class I edentulism Hx of tonsillectomy Family History Father Cancer Anxiety Depression Mother Anxiety Depression Maternal Grandmother No problems noted. Maternal Grandfather Cancer Paternal Grandmother Type 2 diabetes mellitus Paternal Grandfather No problems noted. Brother Alcohol abuse Depression Sister Anxiety Depression Son No problems noted. Social History Housing: House Are you a primary animal daycare provider to a significant other at home: No Do you presently have visiting nurse or other home services: No Alcohol intake: current Alcohol intake frequency: holidays/special occasions only Patient Tobacco Use Status: Never used Tobacco e-Cigarette/Vaping Use: Never Used Second Hand Smoke Exposure: No service: No Current occupational status: employed Current occupational exposures/hazards: No Cognitive needs: No Hearing needs: No Vision needs: Yes Questionnaire Thrive Questionnaire Date Thrive assessed: 12/17/22 THAI-7 AMB Questionnaire THAI-7 Date THAI - 7 assessed: 12/17/22 Source: Developed by Drs. Pito Espinosa, Sissy Oseguera, Reggie Onofre and colleagues, with an educational betty from [employer]. Review of Systems Const Denies chills and Denies fever(s) ENT Denies epistaxis and Denies nasal discharge Card Denies chest pain Resp Denies chest congestion, Denies cough and Denies hemoptysis GI Denies diarrhea and Denies nausea Skin/Breast Denies rash Neuro Reports no additional complaints Psych Reports no additional complaints Endo Reports no additional complaints Physical exam (Primary Care) Tobacco/Smoking Status: Tobacco use Status Tobacco use date assessed 12/22/23 08/31/24 10:31 Patient Tobacco Use Status Never used Tobacco 08/31/24 10:31 e-Cigarette/Vaping Use Never Used 08/31/24 10:31 Thrive Assessment: Date of Thrive Assessment Date Thrive assessed 12/17/22 08/31/24 10:31 Telehealth Telehealth Telehealth Platform: [facility] Location of provider rendering services: practice address Location of patient: address on file Patient Identification confirmed using: Name, : Yes Telehealth method: video Patient verbally consented to treatment: Yes Patient verbally consented to billing insurance company: Yes Patient informed of any privacy concerns related to visit: Yes Minutes spent on Phone/Video with Pt.: 14 Coding Level of Care Code Tele Est Pt Level 3 (07627) Diagnoses Anxiety, generalized F41.1 Assessment & Plan Assessment & Plan (1) Anxiety, generalized: Code(s): F41.1 - Generalized anxiety disorder Category: Medical Plan Patient is a 33-year-old female this is a telemedicine visit Patient has been seeing a psych med prescriber through [facility] Patient says that the prescriber has stopped the practice and she does not have anyone to prescribe the medication at this point She is looking for new provider Meanwhile she is requesting if I can fill her sertraline 200 mg And gave her few tablets of lorazepam, patient is about to travel and she feels anxious during travel I have sent 30 day supply of sertraline And 10 tablets of 0.5 mg of lorazepam Patient is aware, that this medication is Habit forming and may cause Psychological dependence, It can cause drowsiness, dizziness, cognitive impairment , slowing of reflexes along with some other side effect . Medications: Changed From lorazepam PO To lorazepam 0.5 mg PO ONCE 10 days 10 tabs 0RF From sertraline Refill will require office visit 200 mg PO DAILY To sertraline Refill will require office visit 200 mg (2 x 100 mg) PO DAILY 30 days 60 tabs 0RF
== END 2024-08-31 12:08 | disposition home or self-care (01) ==
LOC: HO.HMCC 10:30
PROVIDERS: PCP Internal Medicine; Visit Provider Internal Medicine
DX: F41.1 Generalized anxiety disorder (principal)

== ENCOUNTER → 2024-08-31 10:30 | Outpatient (BNVA) | payer OTHER, SELFPAY | PROVIDERS: PCP Internal Medicine; Visit Provider Internal Medicine ==

== ENCOUNTER 2024-09-22 10:30 | Outpatient (AMB) | payer OTHER, SELFPAY ==
--- NOTE | 2024-09-22 10:17 | MHC.OFFVISWM ---
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 Presents for 1 year 11 month post op visit. Weight today is 158.6 pounds, with a BMI of 29.9. There has been a 63.6 pound weight loss,(initial weight 222.2 pounds) since starting the program on 08/08/22 reflecting a 28.6% total body weight loss and a weight loss of 29.4 pounds since surgery (operative weight 188 pounds) reflecting a 15.6 % TBWL since surgery. No complaints of nausea, emesis, abdominal pain or reflux. Reports infrequent but normal bowel movements every 1-2 days and uses stool softeners regularly. She is taking Huy-slim MVI 2 per day. She reports that she has been under stress lately and does not have strategy to address. Going to [place] weekly for her son for medical issues. Just returned from vacation. Snacking on garbage States she wants to go back to [employer] powder shake, fit crunch bar States her goal is to reach 130-135 pounds. Waking at 530 am on , . 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 previous meal plan includes: fair life ready to drink 30 g shake, half with an additional 4 oz of unsweetened almond milk in the morning with the other half mid day. Meal with 7 forks of protein and 6 forks of vegetables. Drinking 20-30 oz water ?Exercise routine includes: stairs at home, just joined [facility] Medical History Anxiety and depression GERD (gastroesophageal reflux disease) Anemia Surgical History History of wisdom tooth extraction, class I edentulism Hx of tonsillectomy Family History Father Cancer Anxiety Depression Mother Anxiety Depression Maternal Grandmother No problems noted. Maternal Grandfather Cancer Paternal Grandmother Type 2 diabetes mellitus Paternal Grandfather No problems noted. Brother Alcohol abuse Depression Sister Anxiety Depression Son No problems noted. Social History Housing: House Are you a primary healthcare corporate account director to a significant other at home: No Do you presently have visiting nurse or other home services: No Alcohol intake: current Alcohol intake frequency: holidays/special occasions only Patient Tobacco Use Status: Never used Tobacco e-Cigarette/Vaping Use: Never Used Second Hand Smoke Exposure: No service: No Current occupational status: employed Current occupational exposures/hazards: No Cognitive needs: No Hearing needs: No Vision needs: Yes Telehealth Telehealth Telehealth Platform: Telephone Location of provider rendering services: practice address Location of patient: address on file Patient Identification confirmed using: Name, : Yes Telehealth method: voice only Patient verbally consented to treatment: Yes Patient verbally consented to billing insurance company: Yes Patient informed of any privacy concerns related to visit: Yes Minutes spent on Phone/Video with Pt.: 20 Assessment & Plan Assessment & Plan (1) S/P laparoscopic sleeve gastrectomy: Code(s): Z98.84 - Bariatric surgery status Category: Surgical Plan: Patient under significant stress due to ongoing medical issues with her son. She has limited support and has difficulty getting out of the house to go to the gym. Change meal plan: [employer] protein powder, 2 scoops in 12 oz unsweetened almond milk x2 Meal 6 forks protein 6 forks veggies May use fit crunch bar instead of the 2nd shake when she is traveling to [place] for her son Encouraged to go to [employer] as she is able. She will ask her mom to come over the house and watch the kids. She will also look towards social media for a used piece of exercise equipment that she may be able to get for free as she is under significant financial strain. This would be ideal so that she would not need to go to the gym. Discussed a new treadmill or stationary bike as an option. We will have her return to the office in approximately 1 month for her 2 year follow-up.
[2024-09-22 10:19] VITALS: BMI 29.9
== END 2024-09-22 10:59 | disposition home or self-care (01) ==
LOC: HO.HBS 10:46
PROVIDERS: PCP Internal Medicine; Visit Provider Physician Assistant Surgical
DX: E66.3 Overweight (principal); Z68.29 Body mass index [BMI] 29.0-29.9, adult; Z90.3 Acquired absence of stomach [part of]; Z98.84 Bariatric surgery status
CPT/HCPCS: 98967

== ENCOUNTER 2024-12-02 13:31 | Outpatient (AMB) | payer OTHER, SELFPAY ==
--- NOTE | 2024-12-02 14:02 | MHC.OFFWIV ---
Intake Vital Signs 12/02/24 14:09 Weight 155 lb BP 120/72 Blood Pressure Location Rt brachial Position Sitting Pulse 70 Pulse Source Pulse Oximeter Temp 99.2 F Temp Source Oral Pulse Oximetry (%) 98 Oxygen Delivery Method Room Air Intake Visit Reasons: EP-hips pain, body sweat Intake Note: Patient here for swollen glands in groin area and has been having sweats but no actual fevers. Patient Tobacco Use Status: Never used Tobacco Allergies No Known Allergies Allergy (Verified 12/02/24 14:11) Medication List - Last Reconciled 12/02/24 by Elizabeth Morgan MD drospirenone-ethinyl estradiol 3-0.02 mg 1 tab PO DAILY lorazepam 0.5 mg PO ONCE 10 days multivitamin 1 tab PO DAILY sertraline 200 mg (2 x 100 mg) PO DAILY 30 days Do you need a note to return to daycare/school/sports/work: No HPI EP-hips pain, body sweat HPI Details History - The patient is a 34-year-old female presenting with night sweats and lymphadenopathy. - Night sweats began recently during the night from Thursday to Thursday, severe enough to require changing clothes multiple times. - Recently completed treatment with azithromycin for strep throat, which was diagnosed three weeks prior. - Associated symptoms include a persistent headache and tender lymph nodes, particularly in the neck and groin regions. - Describes significant tenderness in the hip area with pain exacerbated by touch and movement. - Reports no fever, chills, abdominal symptoms, or chest discomfort beyond a mild headache. - No other family members reported sick, despite recent exposure to mononucleosis among children at her son's school. Problem List - Lymphadenopathy - Strep Throat (recently treated) - Headache Patient Instructions - Take prescribed course of amoxicillin as directed. - Complete all scheduled laboratory tests promptly. - Return for follow-up in seven days for reevaluation of symptoms and review of laboratory results. Review of Systems - General: No fever - Neurological: no dizziness - Ear nose throat: No sore throat no hearing difficulty no ear pain - Cardiovascular: No syncope, no chest pain, no palpitations - Gastrointestinal: No nausea vomiting or diarrhea - Endocrine: No polyuria polydipsia no heat intolerance - Genitourinary: No dysuria , no blood in urine Physical Exam General: No acute distress HEENT: Lymphadenopathy cervical noted, no throat erythema Neck: supple Respiratory system: Able to talk in full sentences, no audible wheeze cardiovascular: S1-S2 regular in rate and rhythm Gastrointestinal: No pain Extremities: Tenderness in hip area, no rash APARTMENT COMMUNITY ASSISTANT MANAGER: Alert awake oriented x3 motor sensory intact Skin: Normal turgor Lymphadenopathy cervical, right axillary, bilateral inguinal with mild discomfort with pressure No pain left hip with maneuvering REPLACED BY [facility] Medical History Anxiety and depression GERD (gastroesophageal reflux disease) Anemia Surgical History History of wisdom tooth extraction, class I edentulism Hx of tonsillectomy Family History Father Cancer Anxiety Depression Mother Anxiety Depression Maternal Grandmother No problems noted. Maternal Grandfather Cancer Paternal Grandmother Type 2 diabetes mellitus Paternal Grandfather No problems noted. Brother Alcohol abuse Depression Sister Anxiety Depression Son No problems noted. Social History Housing: House Are you a primary chronic care nurse to a significant other at home: No Do you presently have visiting nurse or other home services: No Alcohol intake: current Alcohol intake frequency: holidays/special occasions only Patient Tobacco Use Status: Never used Tobacco e-Cigarette/Vaping Use: Never Used Second Hand Smoke Exposure: No service: No Current occupational status: employed Current occupational exposures/hazards: No Cognitive needs: No Hearing needs: No Vision needs: Yes Physical Exam Vital Signs: Last Vital Signs Temp 99.2 F 12/02/24 14:09 Pulse 70 12/02/24 14:09 BP 120/72 12/02/24 14:09 Pulse Ox 98 12/02/24 14:09 Oxygen Delivery Method Room Air 12/02/24 14:09 Assessment & Plan Assessment & Plan (1) 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 - Night sweats began recently during the night from Thursday to Thursday, severe enough to require changing clothes multiple times. - Recently completed treatment with azithromycin for strep throat, which was diagnosed three weeks prior. - Associated symptoms include a persistent headache and tender lymph nodes, particularly in the neck and groin regions. - Describes significant tenderness in the hip area with pain exacerbated by touch and movement. - Reports no fever, chills, abdominal symptoms, or chest discomfort beyond a mild headache. - No other family members reported sick, despite recent exposure to mononucleosis among children at her son's school. She does have a low-grade fever today Problem List - Lymphadenopathy - Strep Throat (recently treated) - Headache Patient Instructions - Take prescribed course of amoxicillin as directed. - Complete all scheduled laboratory tests promptly. - Return for follow-up in seven days for reevaluation of symptoms and review of laboratory results. Orders: Orders Complete Blood Count Auto Diff Today R50.9 - Fever, unspecified, R59.1 - Generalized enlarged lymph nodes, R68.83 - Chills (without fever) Comprehensive Met. Panel Today R50.9 - Fever, unspecified, R59.1 - Generalized enlarged lymph nodes, R68.83 - Chills (without fever) UA CC w/rflx Micro + Cult Today R50.9 - Fever, unspecified, R59.1 - Generalized enlarged lymph nodes, R68.83 - Chills (without fever) Monotest Today R50.9 - Fever, unspecified, R59.1 - Generalized enlarged lymph nodes, R68.83 - Chills (without fever) Erythrocyte Sedimentation Rate Today R50.9 - Fever, unspecified, R59.1 - Generalized enlarged lymph nodes, R68.83 - Chills (without fever) CRP High Sensitivity Today R50.9 - Fever, unspecified, R59.1 - Generalized enlarged lymph nodes, R68.83 - Chills (without fever) Streptolysin O Antibody Today R50.9 - Fever, unspecified, R59.1 - Generalized enlarged lymph nodes, R68.83 - Chills (without fever) Medications: New amoxicillin 875 mg PO BID 20 tabs 0RF 10 days Coding Level of Care Code Est Pt Level 4 (00487) Diagnoses 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 Lymphadenopathy R59.1 Chills R68.83 Fever, unspecified fever cause R50.9 Fever type: unspecified
[2024-12-02 14:09] VITALS: BP 120/72; PULSE 70; TEMP 37.3; O2SAT 98
--- OUTSIDE RECORDS SUMMARY | 2024-12-02 15:40 | XMS_ITS | Clinical Summary ---
Author Organization [facility] Address [address] [place] [address] Care Team Providers Care High Lead Yarder Name Role Phone Jennifer Willams PA-C Primary Care Provider [phone] Allergies Active Allergy Reactions Criticality Noted Date Comments Egg-Derived Products 07/29/2021 Nickel 07/29/2021 Parabens 07/29/2021 Varicella Virus Vaccine Live 021 Medications Medication Sig Dispensed Refills Start Date End Date Status sertraline (ZOLOFT) 100 MG tablet Take 100 mg by mouth daily. 0 Active MV-Min-Fe Fum-FA-DHA ( 1 PO) Take by mouth. 0 Active Active Problems Problem Noted Date Diagnosed Date Beta thalassemia trait 05/29/2021 Vitamin D deficiency 05/29/2021 Mild episode of recurrent major depressive disor damion 06/21/2020 Obsessive-compulsive disorder 02/23/2019 Obesity (BMI 30-39.9) 10/28/2018 Perennial allergic rhinitis 10/26/2018 Pruritus 10/26/2018 Family History Medical History Relation Name Comments Throat cancer Maternal Grandfather Breast cancer Maternal Grandmother Cervical cancer Mother Relation Name Status Comments Father Alive Maternal Grandfather Maternal Grandmother Mother Alive Social History Tobacco Use Types Packs/Day Years Used Date Smoking Tobacco: Never Smokeless Tobacco: Never Alcohol Use Standard Drinks/Week Comments Not Currently 0 (1 standard drink = 0.6 oz pur e alcohol) Sex and Gender Information Value Date Recorded Sex Assigned at Not on file Gender Identity Not on file Sexual Orientation Not on file Last Filed Vital Signs Vital Sign Reading Time Taken Comments Blood Pressure 125/61 07/29/2021 10:34 AM EDT Pulse 82 07/29/2021 10:34 AM EDT Temperature 37 ??C (98.6 ??F) 07/29/2021 10:34 AM EDT Respiratory Rate - - Oxygen Saturation 100% 07/29/2021 10:34 AM EDT Inhaled Oxygen Concentration - - Weight 95.7 kg (211 lb) 07/29/2021 10:34 AM EDT Height 154.9 cm (5' 1 ) 07/29/2021 10:34 AM EDT Body Mass Index 39.87 07/29/2021 10:34 AM EDT Plan of Treatment Health Maintenance Due Date Last Done Comments Hepatitis B Vaccines (1 of 3 - 3-dose series) 1989 Hepatitis C Screening 1989 Pneumococcal Vaccine (1 of 2 - PCV) 1995 Depression Screening 2001 Preventative Health Evaluation 2007 Cervical Cancer Screening (Pap Smear) 2010 COVID-19 Vaccine (2023-2 5 season) 2024 02/05/2021, 01/15/2021 Influenza Vaccine (#1) 2024 07/13/2017 DTap / Tdap / Td (2 - Td or Tdap) 06/26/2027 06/26/2017 RSV Ped < 20 months Aged Out No longe r eligible based on patient's age to complete this topic Care Teams High Lead Yarder Relationship Specialty Start Date End Date Jennifer Willams PA-C PCP - General Physician Service Officer 07/04/21
== END 2024-12-02 14:41 | disposition home or self-care (01) ==
PROVIDERS: PCP Internal Medicine; Visit Provider Internal Medicine
DX: M35.9 Systemic involvement of connective tissue, unspecified (principal); R59.1 Generalized enlarged lymph nodes; R50.9 Fever, unspecified

== ENCOUNTER 2024-12-03 10:37 | Outpatient (REF) | payer OTHER, SELFPAY ==
[2024-12-03 13:42] LABS: Hematocrit 31.9 % (37.0-47.0); Hemoglobin 9.9 g/dl (12.0-16.0); Mean Corpuscular Hemoglobin 18.6 pg (27.0-33.0); Mean Corpuscular Volume 59.8 fL (80.0-98.0); Red Blood Count 5.33 X10*6/uL (4.20-5.50); Red Cell Distribution Width 15.1 % (11.0-16.0); White Blood Count 4.6 X10*3/uL (4.8-10.8)
[2024-12-03 13:51] LABS: Alanine Aminotransferase 9 U/L (0-31); Albumin Level 3.8 g/dL (3.5-5.0); Alkaline Phosphatase 41 U/L (39-117); Anion Gap 11 (12-20); Aspartate Amino Transferase 23 U/L (5-31); Bilirubin Total 0.2 mg/dL (0.0-1.0); Blood Urea Nitrogen 11 mg/dL (9-16); Calcium 8.8 mg/dL (8.4-10.2); Carbon Dioxide 24 mmol/L (22-29); Chloride 108 mmol/L (96-108); Estimated Glomerular Filt Rate > 60; Glucose Random 106 mg/dL (60-115); Potassium 4.1 mmol/L (3.3-5.1); Sodium 139 mmol/L (135-145); Total Protein 6.9 g/dL (6.5-8.0)
[2024-12-03 14:06] LABS: Appearance Urine Turbid; Color Urine Yellow; Glucose Urine UA Negative (Negative); Leukocyte Esterase Urine Negative (Negative); Nitrite Urine Negative (Negative); Specific Gravity - Urine >= 1.030 (1.005-1.025); Urine Blood Negative (Negative); Urine Ketones Trace mg/dL (Negative); Urine Protein Trace mg/dL (Neg-Trace)
[2024-12-03 14:08] LABS: Monotest Negative (Negative)
[2024-12-03 14:23] LABS: Erythrocyte Sedimentation Rate 6 MM/HR (0-20)
[2024-12-03 14:37] LABS: Atypical Lymph Absolute Manual 0.4 x10*3/uL; Atypical Lymphs Percent Manual 8 % (0-6); Band Neutrophils Percent 5 % (3-5); Eosinophils Absolute Manual 0.2 X10*3/uL (0.0-0.4); Eosinophils Percent Manual 5 % (0-4); Lymphocytes Absolute Manual 2.5 X10*3/uL (1.2-4.9); Lymphocytes Percent Manual 54 % (20-40); Monocytes Absolute Manual 0.3 X10*3/uL (0.1-1.2); Monocytes Percent Manual 6 % (2-11); Neutrophils Absolute Manual 1.2 X10*3/uL (2.0-8.3); Neutrophils Percent Manual 22 % (45-73)
[2024-12-03 14:41] LABS: RBC Morphology NOTED
[2024-12-03 14:42] LABS: Acanthocytes 1+ (0-2) /OIF; Microcytosis 1+ (5-14) /OIF; Ovalocytes 1+ (5-14) /OIF; Target Cells 1+ (5-14) /OIF
[2024-12-03 14:43] LABS: Large Platelet PRESENT; Platelet Estimate DECREASED (NORMAL); Platelet Morphology Comment NOTED; Smudge Cells PRESENT
[2024-12-03 14:44] LABS: Platelet Count 155 X10*3/uL (160-400)
[2024-12-05 08:14] LABS: Streptolysin O Antibody 229 IU/mL (<200)
[2024-12-05 08:25] LABS: CRP High Sensitivity 16.5 mg/L
== END 2024-12-03 10:38 | disposition home or self-care (01) ==
LOC: HO.HMGCLDS 10:37
PROVIDERS: PCP Internal Medicine; Visit Provider Internal Medicine
DX: R59.1 Generalized enlarged lymph nodes (principal); R50.9 Fever, unspecified
CPT/HCPCS: 36415; 80053; 81003; 85007; 85025; 85027; 85652; 86060; 86141; 86308

== ENCOUNTER 2024-12-06 08:01 | Outpatient (AMB) | payer OTHER, SELFPAY ==
--- NOTE | 2024-12-06 08:01 | A.OFFPC_ITS ---
Vital Signs 12/06/24 08:01 Height 5 ft 1 in Intake Visit Reasons: Discuss Labs Allergies No Known Allergies Allergy (Verified 12/06/24 08:02) Medication List - Last Reconciled 12/06/24 by Elizabeth Morgan MD amoxicillin 875 mg PO BID 10 days drospirenone-ethinyl estradiol 3-0.02 mg 1 tab PO DAILY lorazepam 0.5 mg PO ONCE 10 days multivitamin 1 tab PO DAILY sertraline 200 mg (2 x 100 mg) PO DAILY 30 days Tobacco use date assessed: 12/06/24 Dental Screening Dental Screen Date: 12/06/24 Did you have a dental visit in the last 12 months?: Yes Did you have a dental problem in the last 6 months where you did not have access to dental care?: No Was dental information given to patient?: Patient has dentist HPI Discuss Labs HPI Details History The patient is a 34-year-old female presenting with complications following a streptococcal infection. She initially reported symptoms consistent with streptococcal infection for which azithromycin was prescribed, but her symptoms have not improved. Sore throat got better but patient started having other symptoms of malaise tiredness tingling in the body , myalgias so she came in for re-evaluation. I ordered labs and put her on amoxicillin. We set up a telemedicine visit today to go over labs. Patient is not feeling better in fact she is feeling worse, having tingling down to her hands now and having difficulty continuing with her working day. She is taking amoxicillin orally. Lab evaluations demonstrate that the patient has experienced a decrease in her hemoglobin levels from 11.3 g/dL in October last year to 9.9 g/dL currently, raising the concern of anemia unrelated to hemorrhagic events, as she denies any bleeding. There is an elevation in inflammatory markers and streptococcal antibodies in her blood work, indicating an inflammatory process likely induced by the streptococcal infection. Very high CRP, thrombocytopenia and slight neutropenia. Given the lack of symptomatic relief from the oral antibiotics, further treatment with intravenous antibiotics is being considered to address the underlying inflammation and infection. Problem List - Streptococcal Infection Complication - Anemia (Hemoglobin drop) - thrombocytopenia - neutropenia - elevated CRP Patient Instructions - Proceed to the emergency room for intr avenous antibiotic therapy as the oral amoxicillin has been ineffective. - labs print in patient will pick them u p as she is going to [facility] Review of Systems - Neurological: + headaches no dizziness - Ear nose throat: No sore throat no hearing difficulty no ear pain - Cardiovascular: No syncope, no chest pain, no palpitations - Gastrointestinal: No nausea vomiting or diarrhea - Endocrine: No polyuria polydipsia no heat intolerance - Genitourinary: No dysuria , no blood in urine [facility] Medical History Anxiety and depression GERD (gastroesophageal reflux disease) Anemia Surgical History History of wisdom tooth extraction, class I edentulism Hx of tonsillectomy Family History Father Cancer Anxiety Depression Mother Anxiety Depression Maternal Grandmother No problems noted. Maternal Grandfather Cancer Paternal Grandmother Type 2 diabetes mellitus Paternal Grandfather No problems noted. Brother Alcohol abuse Depression Sister Anxiety Depression Son No problems noted. Social History Housing: House Are you a primary companion caregiver to a significant other at home: No Do you presently have visiting nurse or other home services: No Alcohol intake: current Alcohol intake frequency: holidays/special occasions only Patient Tobacco Use Status: Never used Tobacco e-Cigarette/Vaping Use: Never Used Second Hand Smoke Exposure: No service: No Current occupational status: employed Current occupational exposures/hazards: No Cognitive needs: No Hearing needs: No Vision needs: Yes Questionnaire PHQ-9 Over the last 2 weeks, how often have you been bothered by any of the following problems? 1. Little interest or pleasure in doing things: not at all 2. Feeling down, depressed, or hopeless: not at all 3. Trouble falling or staying asleep, or sleeping too much: not at all 4. Feeling tired or having little energy: not at all 5. Poor appetite or overeating: not at all 6. Feeling bad about yourself - or that you are a failure or have let yourself or your family down: not at all 7. Trouble concentrating on things, such as reading the newspaper or watching television: not at all 8. Moving or speaking so slowly that other people could have noticed. Or the opposite - being so fidgety or restless that you have been moving around a lot more than usual: not at all 9. Thoughts that you would be better off or of hurting yourself in some way: not at all Total score: 0 Depression Screening Interpretation: Negative Depression Screening Done: Yes 18590 - PHQ-9 Billing: Yes Source: Developed by Drs. Pito Espinosa, Sissy Oseguera, Reggie Onofre and colleagues, with an educational betty from [employer]. Thrive Questionnaire Date Thrive assessed: 12/06/24 I am a: Patient What is your living situation today?: I have a steady place to live Within the past 12 months, did the food you bought not last and you didn't have the money to get more?: Never true Within the past 12 months, did you worry whether your food would run out before you got money to buy more?: Never true Do you have trouble paying for medicines?: No Do you have trouble getting transportation to medical appointments?: No Do you have trouble paying your heating and electricity bill?: No Do you have trouble taking care of your child, family member or friend?: No Do you have trouble with day-to-day activities such as bathing, preparing meals, shopping, managing finances, etc.?: No Are you currently unemployed and looking for a job?: No Are you interested in more education?: No Please select the resources that you would like help with: None Currently or been in a relationship where the following occur: No concerns reported THRIVE Score: 0 AUDIT C Alcohol Use Questionnaire (AUDIT-C) 1. How often do you have a drink containing alcohol?: Monthly or less 2. How many drinks containing alcohol do you have on a typical day when you are drinking?: 1 or 2 3. How often do you have six or more drinks on one occasion?: Never Total Score: 1 Score Reviewed/Action Taken: Yes THAI-7 AMB Questionnaire THAI-7 Date THAI - 7 assessed: 12/06/24 Feeling nervous, anxious, or on edge: 0 = Not at all Not being able to stop or control worryin = Not at all Worrying too much about different things: 0 = Not at all Trouble relaxin = Not at all Being so restless that it is hard to sit still: 0 = Not at all Becoming easily annoyed or irritable: 0 = Not at all Feeling afraid as if something awful might happen: 0 = Not at all Total THAI-7 score (0-4 normal; 5-9 mild; 10-14 moderate; 15-21 severe): 0 Source: Developed by Drs. Pito Espinosa, Sissy Oseguera, Reggie Onofre and colleagues, with an educational betty from [employer]. THAI-7 Assessment Billing THAI-7 Assessment Tool: THAI-7 Assessment 68595 Physical exam (Primary Care) Tobacco/Smoking Status: Tobacco use Status Tobacco use date assessed 12/06/24 12/06/24 08:03 Patient Tobacco Use Status Never used Tobacco 12/06/24 08:03 e-Cigarette/Vaping Use Never Used 12/06/24 08:03 PHQ-9: PHQ-9 Score PHQ-9: Total score 0 12/06/24 08:04 Depression Screening Interpretation: Negative Thrive Assessment: Date of Thrive Assessment Date Thrive assessed 12/06/24 12/06/24 08:03 Currently or been in a relationship where the following occur: No concerns reported Telehealth Telehealth Telehealth [facility]: [facility] Location of provider rendering services: practice address Location of patient: address on file Patient Identification confirmed using: Name, : Yes Telehealth method: video Patient verbally consented to treatment: Yes Patient verbally consented to billing insurance company: Yes Patient informed of any privacy concerns related to visit: Yes Coding Level of Care Code Tele Est Pt Level 4 (36007) Diagnoses 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 Lymphadenopathy R59.1 Significant drop in hemoglobin D58.2 Elevated C-reactive protein (CRP) R79.82 Thrombocytopenia D69.6 Additional Codes THAI-7 Assessment Billing - THAI-7 Assessment Tool: THAI-7 Assessment 69836 ([id number]) PHQ-9 - 03021 - PHQ-9 Billing: Yes ([id number]) Time Spent (min) 30 Comment [id number] and coordination of care Assessment & Plan Assessment & Plan (1) 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 She initially reported symptoms consistent with streptococcal infection for which azithromycin was prescribed, but her symptoms have not improved. Sore throat got better but patient started having other symptoms of malaise tiredness tingling in the body , myalgias so she came in for re-evaluation. I ordered labs and put her on amoxicillin. We set up a telemedicine visit today to go over labs. Patient is not feeling better in fact she is feeling worse, having tingling down to her hands now and having difficulty continuing with her working day. She is taking amoxicillin orally. Lab evaluations demonstrate that the patient has experienced a decrease in her hemoglobin levels from 11.3 g/dL in October last year to 9.9 g/dL currently, raising the concern of anemia unrelated to hemorrhagic events, as she denies any bleeding. There is an elevation in inflammatory markers and streptococcal antibodies in her blood work, indicating an inflammatory process likely induced by the streptococcal infection. Very high CRP, thrombocytopenia and slight neutropenia. Given the lack of symptomatic relief from the oral antibiotics, further treatment with intravenous antibiotics is being considered to address the underlying inflammation and infection. Problem List - Streptococcal Infection Complication - Anemia (Hemoglobin drop) - thrombocytopenia - neutropenia - elevated CRP
--- OUTSIDE RECORDS SUMMARY | 2024-12-06 08:04 | XMS_ITS | Clinical Summary ---
Author Organization [facility] Address [address] [place] [address] Care Team Providers Care Rehabilitation Team Lead Name Role Phone Jennifer Willams PA-C Primary Care Provider [phone] Allergies Active Allergy Reactions Criticality Noted Date [...] age to complete this topic Care Teams Rehabilitation Team Lead Relationship Specialty Start Date End Date Jennifer Willams PA-C PCP - General Physician Mobile Ui Designer 07/04/21
--- OUTSIDE RECORDS SUMMARY | 2024-12-06 08:04 | XMS_ITS | Encounter Summary ---
Author Organization [facility] Address [address] [place] [address] Care Team Providers Care Head Porter Baggage Name Role Phone Torie Blanton MD Primary Care Provider Unavail able Isamar Shearer MD Primary Care Provider [phone] Encounter Details Date Type Department Care Team Description 07/29/2021 Beach Attendant Report Medical Records [address] [place] [address] Otoniel Gan MD Social History Tobacco Use Types Packs/Day Years Used Date Smoking Tobacco: Never Smokeless Tobacco: Never Alcohol Use Standard Drinks/Week Comments No 0 (1 standard drink = 0.6 oz pur e alcohol) Sex Assigned at Date Recorded Not on file documented as of this encounter Plan of Treatment Not on file documented as of this encounter Visit Diagnoses Not on filedocumented in this encounter Care Teams Head Porter Baggage Relationship Specialty Start Date End Date Torie Blanton MD PCP - General Internal Medicine 06/14/18 11/21/21 Isamar Shaerer MD [address] [place] [address] PCP - General Internal Medicine 11/22/21 documented as of this encounter
== END 2024-12-06 10:15 | disposition home or self-care (01) ==
LOC: HO.HMCC 08:01
PROVIDERS: PCP Internal Medicine; Visit Provider Internal Medicine
DX: M35.9 Systemic involvement of connective tissue, unspecified (principal); D58.2 Other hemoglobinopathies; D69.6 Thrombocytopenia, unspecified; R59.1 Generalized enlarged lymph nodes; R79.82 Elevated C-reactive protein (CRP)

== ENCOUNTER → 2024-12-06 08:01 | Outpatient (BNVA) | payer OTHER, SELFPAY | PROVIDERS: PCP Internal Medicine; Visit Provider Internal Medicine ==

== ENCOUNTER 2024-12-06 09:43 | Emergency (ER) | payer OTHER, SELFPAY ==
--- NOTE | ~2024-12-06 | XR_ITS ---
EXAMINATION: XR CHEST CLINICAL INFORMATION: diffuse lymphadenopathy COMPARISON: Chest x-ray 08/13/2022 TECHNIQUE: 2 views of the chest were obtained. FINDINGS: No significant abnormality is noted involving the heart, lungs, mediastinum, bony thorax or soft tissues. XR/XR chest 2V IMPRESSION: Unremarkable chest examination. Electronically signed by: Antoine Brown MD 12/06/2024 12:12 PM [facility]
[2024-12-06 11:11] VITALS: BP 152/88; PULSE 93; RESP 16; TEMP 36.6; O2SAT 100; BMI 29.7
--- NOTE | 2024-12-06 11:13 | ED_ITS ---
HPI - General Adult General Chief complaint: General Medical Stated complaint: Night sweats, weakness, recent strep Time Seen by Provider: 12/06/24 12:29 Source: patient and family (Spouse) Mode of arrival: ambulatory Limitations: no limitations History of Present Illness ED Provider: Dr. Zenon Cotetr HPI narrative: 34-year-old female with a history of beta thalassemia trait, anxiety, status post gastric sleeve gastrectomy 2022 with known absorption issues who presents emergency department for evaluation swollen lymph nodes (neck, groin, axilla ), numbness of the upper extremities including the hands, night sweats, myalgias, arthralgias, night sweats with symptoms starting 11/28/2024 (9 days prior to evaluation ). Patient states that her son was diagnosed with strep throat approximately 5 weeks prior. The son did have a positive strep test. The patient then developed a sore throat and was treated empirically with Zithromax Z-Cash with improvement of her symptoms.. The patient states she has several nontender lymph nodes in her left neck, right axilla and right groin area. She states that she developed numbness in her arms and hands but no weakness. She was complaining of joint pain involving her elbows, wrists, fingers. She also has pain in her thigh muscles and in the muscles or her lateral hips. She denied fever but did have chills. She denied rhinorrhea, cough. She states she does feel short of breath and does have dyspnea on exertion. Patient does have nausea but no vomiting. She states that yesterday , she had 3 loose yellow stools. She has not noticed any blood in the stool. Patient has night sweats. She denies weight loss or weight gain. The patient was seen by her PCP on 12/03/2024 and did have blood work which revealed a positive ASO titer. Patient was started on amoxicillin on 12/02/2024 by your PCP. . The patient was seen by your PCP today , who was concerned about the patient's laboratory evaluation and the fact that the patient was not improving on amoxicillin therefore she was referred to the emergency department for evaluation. I did review the RME note under ED course and PCP note. Related Data Home Medications ?Medication ?Instructions ?Recorded ?Confirmed drospirenone 3 mg-ethinyl 1 tab PO DAILY 10/24/22 03/04/25 estradiol 0.02 mg tablet multivitamin 1 tab PO DAILY 12/17/22 12/06/24 Previous Rx's ?Medication ?Instructions ?Recorded lorazepam 0.5 mg tablet 0.5 mg PO ONCE 10 days #10 tabs 08/31/24 sertraline 100 mg tablet 200 mg (2 x 100 mg) PO DAILY 30 08/31/24 days #60 tabs amoxicillin 875 mg tablet 875 mg PO BID 10 days #20 tabs 12/02/24 Allergies Allergy/AdvReac Type Severity Reaction Status Date / Time No Known Allergies Allergy Verified 12/06/24 11:21 Review of Systems 2 Review of Systems: Yes all other systems are reviewed and are negative [facility] Past Medical History [facility] Narrative: social history: Patient was and is here with her spouse. Patient denied tobacco use. She occasionally drinks alcohol. She denied drug use. Medical History Anxiety and depression GERD (gastroesophageal reflux disease) Anemia Surgical History History of wisdom tooth extraction, class I edentulism Hx of tonsillectomy Family History Family History Father Cancer Anxiety Depression Mother Anxiety Depression Maternal Grandmother No problems noted. Maternal Grandfather Cancer Paternal Grandmother Type 2 diabetes mellitus Paternal Grandfather No problems noted. Brother Alcohol abuse Depression Sister Anxiety Depression Son No problems noted. Social History Social History Housing: House Are you a primary medicare nurse to a significant other at home: No Do you presently have visiting nurse or other home services: No Alcohol intake: current Alcohol intake frequency: does not drink Patient Tobacco Use Status: Never used Tobacco Smoked in Last 30 Days: No e-Cigarette/Vaping Use: Never Used Second Hand Smoke Exposure: No Use of substances other than those prescribed or required for medical reasons: No Advance Directives: No Advance Directives Information Provided: No Do you have a plan to hurt others: No Plan Patient : No service: No Current occupational status: employed Current occupational exposures/hazards: No Cognitive needs: No Hearing needs: No Vision needs: Yes Physical Exam ED Vital Signs: Vital Signs - 24 hr 12/06/24 17:53 Temperature 98.3 F Pulse Rate 82 Respiratory Rate 13 Blood Pressure 117/71 Pulse Oximetry 100 Oxygen Delivery Method Room Air BMI result Body Mass Index 29.7 Initial vital signs were normal. Exam: General: Awake, alert in no distress , very pleasant and cooperative, answers all questions appropriately Head: Normocephalic, atraumatic EENT: PERRL, Lids normal, sclera normal, conjunctiva normal, nose normal , ears normal, throat without erythema or exudates Neck: Supple, patient has small, nontender left-sided posterior adenopathy and small, nontender left-sided jugulodigastric adenopathy Lung: breath sounds symmetric, no wheezing, rales or rhonchi Chest: symmetric movement, nontender Heart: regular rate and rhythm, normal S1, S2 no murmurs or rubs Abdomen: soft, no right upper quadrant or left upper quadrant tenderness, mild suprapubic tenderness, nondistended, normal bowel sounds, nontender, small adenopathy in left and right groin area Back: no vertebral tenderness, no CVAT Extremities: no deformities, moves all extremities symmetrically, has mild tenderness palpation of her thigh muscles bilaterally and tenderness with palpation over her lateral hips bilaterally with left being greater than right. Patient has no increased warmth or swelling over her joints, she has full range of motion of her fingers, wrist, elbow and shoulder joints without any significant pain passive actively. No significant swelling or increased warmth over her lower extremity joints with no significant increase of pain with either passive or active range of motion. skin: No rashes or lesions noted, no erythema Neuro: General:Awake, alert, oriented, normal speech Cranial nerves:cranial nerves intact Strength:moves all extremities symmetrically , normal strength symmetrically Psych: Pleasant, cooperative Course Course Course Narrative: 24 yo female with PMH of anxiety, s/p sleeve gastrectomy in 2022 no known absorption issues, anemia now with c/o night sweats that are profound but no fevers over 100.4, her arms and legs are achy and shaking, she was treated for strep throat 11/15 with a zpak. She also notes she has diffuse lymph noeds in her neck. She has not traveled, she does not have a cat, she has no known sick contacts. She has a dog at home. She has no rash. She takes OCPs and control. She thinks she got better with zpak which lasted for 3 weeks. At this time I am going to repeat her labs, obtain urine, CXR and cultures. No fam hx of lymphoma. this is a RAPID medical screening exam the rest of the history and physical exam is to be done by the main provider. Medical Decision Making Medical Decision Making MDM Narrative: 34-year-old female with a history of beta thalassemia trait, anxiety, status post gastric sleeve gastrectomy 2022 with known absorption issues who presents emergency department for evaluation nontender adenopathy in the neck, axilla and groin, numbness of the upper extremities including the hands, night sweats, myalgias, arthralgias, night sweats with suspected streptococcal throat infection 5 weeks prior treated with azithromycin Z-Cash and hersymptoms starting 11/28/2024 (9 days prior to evaluation ). patient was seen by her PCP on 12/02/2024 and started on amoxicillin with no improvement of her symptoms. Seen again by PCP today and referred to the emergency department for evaluation based on patient's laboratory evaluation and for consideration of IV antibiotics. Physical examination did reveal normal vital signs. Patient did have small nontender adenopathy in her neck, axilla and groin areas. Examination did reveal tenderness with palpation of the thigh muscles and lateral hip muscles. Patient was complaining of joint pain however her joints appear to be normal with no significant increase in pain with active or passive movement. Differential diagnosis: Includes but is not limited to Viral syndrome, post streptococcal reactive arthritis/myositis, autoimmune disorder, hemolytic anemia, rhabdomyolysis, lymphoma,bacterial infection, anemia, electrolyte abnormalities Course: The patient was had 3 sets of laboratory values done on 11/02/2023, 12/03/2024 and 12/06/2024. My interpretation of the patient's laboratory evaluation is as follows: WBC was normal at 6600 improved from 4600 on 12/03/2024. Microcytic anemia with an H&H of 9.7 and 30.4 with an MCV of 58.2-most likely consistent with her beta thalassemia trait. H&H on 11/02/2024 was 11.3 and 37.6 so today's H&H has drop from her baseline. Hemolytic workup revealed a normal haptoglobin of 156, normal LDH of 180 and normal bilirubin. Urinalysis was dark but negative for blood. These normal values suggest that at this time, she does not have hemolysis as the cause of her anemia. Platelet count was 321,000 which is normal, and improved from 155,000 on 12/03/2024. CK was normal at 26 ruling out rhabdomyolysis. ESR normal at 7. CRP was only slightly elevated at 0.53. The patient had a high sensitivity CRP done on 12/03/2024 which was elevated at 16.5 however not sure how this correlates to her current symptoms since this is usually used to determine cardiac risk and not used for an inflammatory illness. Patient's high sensitive troponin was below detectable limits. Lactic acid normal at 1.3. Magnesium normal at 2.3. BUN and creatinine normal. Urinalysis revealed only trace protein ruling out glomerulonephropathy. Serum test was negative. COVID-19, RSV and influenza were negative. The patient's ASO titer was elevated on 12/03/2024 at 229 and today at 294 consistent with recent streptococcal infection. 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 I did discuss this with the patient and the patient's . At this time I advised the patient to take ibuprofen 400 mg3 times a day over the next for 4 - 7 days to see if this improves her symptoms. she was also advised to take Tylenol 1000 mg every 6 hours as neededfor pain. I did tell her to complete her course of the amoxicillin. I do not think that there is a role for steroids at this time. The patient will need close follow-up with her PCP and if her symptoms Do not improving, she may need a rheumatology evaluation. Admission/Observation Consideration of admission/observation: Escalation of care including admission/observation considered ( yes) Lab Data MDM Lab Attestation statement: I reviewed the patient's lab results. 12/06/24 12:00 12/06/24 12:00 Labs: Lab Results 12/06/24 12/06/24 12/06/24 Range/Units 12:00 12:26 15:35 WBC 6.6 (4.8-10.8) X10*3/uL RBC 5.22 (4.20-5.50) X10*6/uL Hgb 9.7 L (12.0-16.0) g/dl Hct 30.4 L (37.0-47.0) % MCV 58.2 L (80.0-98.0) fL MCH 18.6 L (27.0-33.0) pg MCHC 31.9 (31.0-35.0) g/dl RDW 14.9 (11.0-16.0) % Plt Count 321 D (160-400) X10*3/uL MPV 10.4 (9.4-12.3) fL Immature Gran % (Auto) 1.4 H (0.0-0.4) % Neut % (Auto) 48.6 (45-73) % Lymph % (Auto) 40.1 H (20-40) % [place] % (Auto) 5.9 (2-11) % Eos % (Auto) 2.3 (0-4) % Baso % (Auto) 1.7 (0-2) % Lymph # (Auto) 2.6 (1.2-4.9) X10*3/uL [place] # (Auto) 0.4 (0.1-1.2) X10*3/uL Eos # (Auto) 0.2 (0.0-0.4) X10*3/uL Baso # (Auto) 0.1 (0.0-0.2) X10*3/uL Abs Immat Gran (auto) 0.09 H (0.00-0.03) X10*3/uL Absolute Neuts (auto) 3.2 (2.0-8.3) x10*3/uL Absolute Nucleated RBC 0.000 (0.0-0.012) X10*3/uL Nucleated RBC % (auto) 0.0 (0.0-0.2) /100WBC Smear Tech's Comments VERIFIED ESR 7 (0-20) MM/HR PT 10.8 L (10.9-12.4) SEC INR 0.9 (0.9-1.1) Sodium 142 (135-145) mmol/L Potassium 3.5 (3.3-5.1) mmol/L Chloride 110 H (96-108) mmol/L Carbon Dioxide 23 (22-29) mmol/L Anion Gap 13 (12-20) BUN 7 L (9-16) mg/dL Creatinine 0.62 (0.5-1.4) mg/dL Estim Creat Clear Calc 114.3 Estimated GFR > 60 Random Glucose 78 (60-115) mg/dL Haptoglobin 156 (35-250) mg/dL Lactic Acid 1.3 (0.5-2.0) mmol/L Calcium 9.0 (8.4-10.2) mg/dL Magnesium 2.3 (1.6-2.6) mg/dL Total Bilirubin 0.3 (0.0-1.0) mg/dL Direct Bilirubin 0.1 (0.0-0.5) mg/dL AST 29 (5-31) U/L ALT 14 (0-31) U/L Alkaline Phosphatase 44 (39-117) U/L Lactate Dehydrogenase 180 (122-220) U/L Total Creatine Kinase 26 (26-140) U/L Troponin I High Sens < 2.7 (<3.5-17.0) ng/L C-Reactive Protein 0.53 H (< or = 0.50) mg/dL Total Protein 7.4 (6.5-8.0) g/dL Albumin 4.1 (3.5-5.0) g/dL Lipase 16 (8-78) U/L Beta HCG, Quant < 2 mIU/mL Urine Color Dark Yellow Urine Appearance Clear Urine pH 5.5 (5.0-9.0) Ur Specific [place] 1.025 (1.005-1.025) Urine Protein Trace (Neg-Trace) mg/dL Urine Glucose (UA) Negative (Negative) mg/dL Urine Ketones 15 (Negative) mg/dL Urine Blood Negative (Negative) Urine Nitrite Negative (Negative) Ur Leukocyte Esterase Negative (Negative) Lyme Screen IgG & IgM <0.90 index Lyme Progressive Test TNP Influenza Type A (PCR) NEGATIVE (Negative) Influenza Type B (PCR) NEGATIVE (Negative) RSV RNA Qual (PCR) NEGATIVE (Negative) SARS-CoV-2 RNA (RT-PCR) NEGATIVE (Negative) Anti-Streptolysin Scrn 294 H (<200) IU/mL Independent Interpretation I performed an independent interpretation of an: EKG and Plain X-Ray Interpretation: My interpretation patient's 12 EKG done on 12/06/2024 at 11:26 hours is as follows: Normal sinus rhythm with a rate of 78, normal CO interval, QRS duration QTC interval, no ST segment elevation, less than [address] segment depression leads 2, 3, AVF, and V4, V5 and V6, no significant T-wave abnormalities, no PACs, no PVCs. Compared to EKG dated 06/13/2022 ST segment depressions in 2, 3, AVF and V3 through V6 were present previously. My interpretation patient's chest x-ray is as follows: No acute disease Radiology Impression Discussion of test interpretation with radiology: I have reviewed the radiologist's reading. Radiologist Impression: EXAMINATION: XR CHEST CLINICAL INFORMATION: diffuse lymphadenopathy COMPARISON: Chest x-ray 08/13/2022 TECHNIQUE: 2 views of the chest were obtained. FINDINGS: No significant abnormality is noted involving the heart, lungs, mediastinum, bony thorax or soft tissues. XR/XR chest 2V IMPRESSION: Unremarkable chest examination. Electronically signed by: Antoine Brown MD 12/06/2024 12:12 PM EST Independent Historian Clinical information obtained from an independent historian. 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 Your comprehensive metabolic panel revealed normal kidney and liver function as well as normal electrolytes which is reassuring. You had to inflammatory markers tested (ESR and CRP) and these were normal which is reassuring. Your creatinine kinase (CK) a marker of muscle damage was normal as well. Your urinalysis revealed no blood or protein in your urine which is also a good sign suggesting that you did not have any kidney damage. Your COVID-19, influenza and RSV tests were negative. On your examination you did not have any significantly swollen or warm joints and mild to moderate tenderness of the muscles of your legs. You did have some small relatively nontender lymph nodes noted in your neck in groin area. The ASO test done by your doctor was positive suggesting that you did have a relatively recent streptococcal infection. At this time, I think that your symptoms are caused by a reaction to your strep throat and this is called post streptococcal syndrome. This often gets better over time and it was treated with nonsteroidal anti-inflammatory medications, such as ibuprofen and with Tylenol for pain. Take ibuprofen 200 mg pills, 2 pills 3 times a day for the next 4-7 days to see if this improves the pain that your having an your joints in your muscles. Take Tylenol 500 mg pills, 2 pills 3 times a day as needed for pain or fever. Complete the course of amoxicillin as prescribed by your doctor. I want you to follow to follow up with your doctor and if you are not better in 1-2 weeks, your doctor should consider referring you to and slubber machine operator Please return to the emergency department if your symptoms get worse or if you develop any symptoms that are concerning to you. Prescriptions: No Action multivitamin Tablet 1 tab PO DAILY drospirenone-ethinyl estradiol 3-0.02 mg tablet 1 tab PO DAILY sertraline 100 mg tablet 200 mg PO DAILY 30 Days Qty: 60 0RF Rx Instructions: Refill will require office visit lorazepam 0.5 mg tablet 0.5 mg PO ONCE 10 Days Qty: 10 0RF amoxicillin 875 mg tablet 875 mg PO BID 10 Days Qty: 20 0RF Interventions: ED Discharge Assessment Last Done: 12/06/24 17:53 Discharge Date/Time: 12/06/24 17:53 Print Language: Serbian
--- NOTE | 2024-12-06 11:18 | ECG_ITS ---
Test Reason : weakness, arm pain Blood Pressure : */* mmHG Vent. Rate : 78 BPM Atrial Rate : 78 BPM P-R Int : 120 ms QRS Dur : 90 ms QT Int : 396 ms P-R-T Axes : 66 56 -9 degrees QTcB Int : 451 ms Normal sinus rhythm Nonspecific ST and T wave abnormality Abnormal ECG When compared with ECG of 13-Aug-2022 09:25, Nonspecific T wave abnormality now evident in Lateral leads Referred By: Emilia Huerta Electronically Signed By: GHISLAINE LYMAN MD
[2024-12-06 12:16] LABS: Mean Platelet Volume 10.4 fL (9.4-12.3); Neutrophils Absolute Auto 3.2 x10*3/uL (2.0-8.3); Red Cell Distribution Width 14.9 % (11.0-16.0); SCAN SMEAR FLAG 1
[2024-12-06 12:17] LABS: Basophils Absolute Auto 0.1 X10*3/uL (0.0-0.2); Basophils Percent Auto 1.7 % (0-2); Eosinophils Absolute Auto 0.2 X10*3/uL (0.0-0.4); Eosinophils Percent Auto 2.3 % (0-4); Hematocrit 30.4 % (37.0-47.0); Hemoglobin 9.7 g/dl (12.0-16.0); Imm Gran Abs Auto 0.09 X10*3/uL (0.00-0.03); Imm Gran Pct Auto 1.4 % (0.0-0.4); Lymphocytes Absolute Auto 2.6 X10*3/uL (1.2-4.9); Lymphocytes Percent Auto 40.1 % (20-40); MANUAL DIFF FLAG SCAN; Mean Corpuscular HGB Conc 31.9 g/dl (31.0-35.0); Mean Corpuscular Hemoglobin 18.6 pg (27.0-33.0); Monocytes Absolute Auto 0.4 X10*3/uL (0.1-1.2); Monocytes Percent Auto 5.9 % (2-11); Neutrophils Percent Auto 48.6 % (45-73); Platelet Count 321 X10*3/uL (160-400); Red Blood Count 5.22 X10*6/uL (4.20-5.50); White Blood Count 6.6 X10*3/uL (4.8-10.8)
[2024-12-06 12:19] LABS: Mean Corpuscular Volume 58.2 fL (80.0-98.0); PLT ABN DIST 1
[2024-12-06 12:28] LABS: INTERNATIONAL NORM RATIO 0.9 (0.9-1.1); Prothrombin Time 10.8 SEC (10.9-12.4)
[2024-12-06 12:31] LABS: Haptoglobin 156 mg/dL (35-250); Lactic Acid 1.3 mmol/L (0.5-2.0)
[2024-12-06 12:34] LABS: Appearance Urine Clear; Color Urine Dark Yellow; Glucose Urine UA Negative (Negative); Leukocyte Esterase Urine Negative (Negative); Nitrite Urine Negative (Negative); PH 5.5 (5.0-9.0); Specific Gravity - Urine 1.025 (1.005-1.025); Urine Blood Negative (Negative); Urine Ketones 15 mg/dL (Negative); Urine Protein Trace mg/dL (Neg-Trace)
[2024-12-06 12:40] LABS: SLIDE REVIEW VERIFIED
[2024-12-06 12:43] LABS: Alanine Aminotransferase 14 U/L (0-31); Albumin Level 4.1 g/dL (3.5-5.0); Alkaline Phosphatase 44 U/L (39-117); Anion Gap 13 (12-20); Aspartate Amino Transferase 29 U/L (5-31); Bilirubin Direct 0.1 mg/dL (0.0-0.5); Bilirubin Total 0.3 mg/dL (0.0-1.0); Blood Urea Nitrogen 7 mg/dL (9-16); C Reactive Protein 0.53 mg/dL (< or = 0.50); Carbon Dioxide 23 mmol/L (22-29); Chloride 110 mmol/L (96-108); Creatinine Clr Calc Pharmacy 114.3; Estimated Glomerular Filt Rate > 60; Glucose Random 78 mg/dL (60-115); HCG Quantitative < 2 mIU/mL; Lactate Dehydrogenase 180 U/L (122-220); Lipase 16 U/L (8-78); Magnesium 2.3 mg/dL (1.6-2.6); Potassium 3.5 mmol/L (3.3-5.1); Sodium 142 mmol/L (135-145); Total Protein 7.4 g/dL (6.5-8.0); Troponin-I High Sensitivity < 2.7 ng/L (<3.5-17.0)
[2024-12-06 12:54] LABS: Influenza A PCR NEGATIVE (Negative); Influenza B PCR NEGATIVE (Negative); Resp Syncy Virus RNA Qual PCR NEGATIVE (Negative); SARS COV2 PCR INHOUSE NEGATIVE (Negative)
[2024-12-06 16:02] VITALS: BP 117/71; PULSE 82; RESP 13; TEMP 36.8; O2SAT 100
[2024-12-06 16:39] LABS: Erythrocyte Sedimentation Rate 7 MM/HR (0-20)
[2024-12-06 17:53] VITALS: BP 117/71; PULSE 82; RESP 13; TEMP 36.8; O2SAT 100
--- OUTSIDE RECORDS SUMMARY | 2024-12-06 19:59 | XMS_ITS | Clinical Summary ---
Author Organization [facility] Address [address] [place] [address] Care Team Providers Care Laboratory Apparatus Glass Grinder Name Role Phone Jennifer Willams PA-C Primary Care Provider [phone] Allergies Active Allergy Reactions Criticality Noted Date [...] age to complete this topic Care Teams Laboratory Apparatus Glass Grinder Relationship Specialty Start Date End Date Jennifer Willams PA-C PCP - General Physician Hay Farmer 07/04/21
[2024-12-07 09:38] LABS: Lyme Abs Screen <0.90 index
[2024-12-07 16:49] LABS: Streptolysin O Antibody 294 IU/mL (<200)
[2024-12-07 20:33] LABS: A. Phagocytphilium DNA,RT-PCR NOT DETECTED (NOT DETECTED); Babesia Microti DNA, RT-PCR NOT DETECTED (NOT DETECTED); Borrelia Miyamotoi,DNA RT-PCR NOT DETECTED (NOT DETECTED); E.Chaffeensis DNA RT-PCR NOT DETECTED (NOT DETECTED); Lyme(Borrelia ssp)DNA RT-PCR NOT DETECTED (NOT DETECTED)
== END 2024-12-06 17:53 | disposition home or self-care (01) ==
PROVIDERS: Emergency Medicine; Emergency Provider Emergency Medicine Emergency Medical Services; PCP Internal Medicine
DX: G93.39 Other post infection and related fatigue syndromes (principal); R61 Generalized hyperhidrosis; R59.9 Enlarged lymph nodes, unspecified; J02.9 Acute pharyngitis, unspecified; R20.0 Anesthesia of skin; R11.0 Nausea; R10.812 Left upper quadrant abdominal tenderness; D64.9 Anemia, unspecified; R94.31 Abnormal electrocardiogram [ECG] [EKG]; R10.2 Pelvic and perineal pain; R06.02 Shortness of breath; M79.10 Myalgia, unspecified site; Z98.84 Bariatric surgery status; Z03.818 Encounter for observation for suspected exposure to other biological agents ruled out; Z79.899 Other long term (current) drug therapy
CPT/HCPCS: 0241U; 36415; 71046; 80048; 80076; 81003; 82550; 83010; 83605; 83615; 83690; 83735; 84484; 84702; 85025; 85610; 85652; 86060; 86140; 86617; 86618; 87040; 87468; 87469; 87478; 87484; 87798; 93005; 96127; 99284

== ENCOUNTER → 2024-12-06 11:18 | Outpatient (BNV) | payer OTHER, SELFPAY | PROVIDERS: Emergency Provider Emergency Medicine Emergency Medical Services; PCP Internal Medicine; Visit Provider Internal Medicine Cardiovascular Disease | DX: R53.1 Weakness (principal); R94.31 Abnormal electrocardiogram [ECG] [EKG] | CPT/HCPCS: 93010 ==

== ENCOUNTER → 2024-12-06 11:20 | Outpatient (BNV) | payer OTHER, SELFPAY | PROVIDERS: PCP Internal Medicine; Visit Provider Radiology Diagnostic Radiology | DX: R59.1 Generalized enlarged lymph nodes (principal) | CPT/HCPCS: 71046 ==

== ENCOUNTER 2024-12-15 10:58 | Outpatient (REF) | payer OTHER, SELFPAY ==
--- OUTSIDE RECORDS SUMMARY | 2024-12-15 15:53 | XMS_ITS | Clinical Summary ---
Author Organization [facility] Address [address] [place] [address] Care Team Providers Care Agricultural Chemicals Inspector Name Role Phone Jennifer Willams PA-C Primary Care Provider [phone] Allergies Active Allergy Reactions Criticality Noted Date [...] age to complete this topic Care Teams Agricultural Chemicals Inspector Relationship Specialty Start Date End Date Jennifer Willams PA-C PCP - General Physician Chief Architect 07/04/21
== END 2024-12-15 10:59 | disposition home or self-care (01) ==
LOC: HO.XRAY 10:58
PROVIDERS: PCP Internal Medicine; Visit Provider Internal Medicine Rheumatology
DX: Z13.89 Encounter for screening for other disorder (principal)

== ENCOUNTER 2024-12-15 10:58 | Outpatient (AMB) | payer OTHER, SELFPAY ==
--- NOTE | 2024-12-15 11:12 | A.OFFVIS_ITS ---
Vital Signs 12/15/24 11:17 Height 5 ft 1 in Weight 159 lb BMI 30.0 BP 140/100 H Pulse 76 Pulse Oximetry (%) 100 Oxygen Delivery Method Room Air Intake Visit Reasons: Carol's disease Intake Note: Pt presents today for Reiters disease or post strep reactive athritis Allergies No Known Allergies Allergy (Verified 12/15/24 11:18) HPI HPI Carol's disease: Details: New patient evaluation. Diagnosed with strep throat end of October. Presenting with mild sore throat and enlarged cervical lymph nodes. 3 weeks after she woke up with night sweats, low grade fever 99.8F and diffuse enlarged lymph nodes, pain in groin region/lateral hips, thighs, forearms and swollen joints hands. She has paresthesia in fingers and muscle pain in. Pain with typing. She completed z- pack initially. Then she was prescribed amoxicillin day 13 today. MS all day. Improvement in stiffness in 30 minutes. No hx of PsO, IBD, iritis, low back pain, foot pain. No family hx of IBD or PsO. Takes ibuprofen 400mg BID. Prior she was taking ibuprofen 400mg TID PRN with tylenol in duel tablet. CBD lotion on hands provided little benefit. No family hx of rheumatological disease. Past medical history: Beta thalassemia trait with chronic anemia typically hemoglobin is 11, anxiety Past surgical history: Cholecystectomy, gastric sleeve 2022 Occasionally she drinks alcohol. Nonsmoker Processes insurance claims, administrative role. [facility] Medical History Anxiety and depression GERD (gastroesophageal reflux disease) Anemia Surgical History History of wisdom tooth extraction, class I edentulism Hx of tonsillectomy Family History Father Cancer Anxiety Depression Mother Anxiety Depression Maternal Grandmother No problems noted. Maternal Grandfather Cancer Paternal Grandmother Type 2 diabetes mellitus Paternal Grandfather No problems noted. Brother Alcohol abuse Depression Sister Anxiety Depression Son No problems noted. Social History Housing: House Are you a primary client care manager to a significant other at home: No Do you presently have visiting nurse or other home services: No Alcohol intake: current Alcohol intake frequency: does not drink Patient Tobacco Use Status: Never used Tobacco e-Cigarette/Vaping Use: Never Used Second Hand Smoke Exposure: No service: No Current occupational status: employed Current occupational exposures/hazards: No Cognitive needs: No Hearing needs: No Vision needs: Yes Physical Exam Vital Signs: Last Vital Signs Pulse 76 12/15/24 11:17 BP 140/100 H 12/15/24 11:17 Pulse Ox 100 12/15/24 11:17 Oxygen Delivery Method Room Air 12/15/24 11:17 BMI result Body Mass Index 30.0 Const Other: General: Comfortable CVS: RRR Respiratory: clear to auscultation bilaterally. Good respiratory effort Skin: No lesions seen Lymph node: Left superficial cervical lymph node palpated. No submandibular lymph node palpated. MSK:Tender right fifth MCP, synovitis right 3rd PIP, left 2nd and 4th PIP. Weak sec reporting consultant bilateral. Normal range of motion upper extremities and lower extremities. Assessment & Plan Assessment & Plan (1) Reactive arthritis: Comment: In setting of strep throat infection with onset October 2024 initially presenting with mild sore throat and enlarged cervical lymph nodes with resolution of symptoms with CPAP. She had rebound infection presenting with night sweats, low-grade fever, diffuse lymphadenopathy, myalgias, all day morning stiffness in hands and inflammatory arthritis. She is on day 13 of amoxicillin. Recent labs reviewed, which revealed normal ESR with improvement of CRP (comparing / and/ labs) with persistent antistreptolysin O antibody. Her symptoms are consistent with reactive arthritis. Typically, reactive arthritis is self-limited. Contraindication to oral NSAIDs use due to history of gastric sleeve surgery. I will prescribe a course of prednisone to treat her inflammatory arthritis. 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 GI prophylaxis prescribed while on prednisone Antibiotic treatment per PCP X-ray bilateral hands ordered Return to clinic in 1 month Orders: Orders XR hand RT min 3V Today M02.30 - Carol's disease, unspecified site XR foot RT min 3V Today M02.30 - Carol's disease, unspecified site Medications: New prednisone Take 4 tablets daily 5 days, 3 tablets daily 5 days, 2 tablets daily 5 days, 1 tablet daily 5 days then stop. Take prednisone with food. 5 mg PO D IRECTED 50 tabs 0RF omeprazole 20 mg PO DAILY 30 caps 0RF Coding Level of Care Code New Pt Level 4 (70856) Diagnoses Reactive arthritis M02.30
[2024-12-15 11:17] VITALS: BP 140/100; PULSE 76; O2SAT 100
--- OUTSIDE RECORDS SUMMARY | 2024-12-15 14:05 | XMS_ITS | Clinical Summary ---
Author Organization [facility] Address [address] [place] [address] Care Team Providers Care Media Relations Manager Name Role Phone Jennifer Willams PA-C Primary Care Provider [phone] Allergies Active Allergy Reactions Criticality Noted Date [...] age to complete this topic Care Teams Media Relations Manager Relationship Specialty Start Date End Date Jennifer Willams PA-C PCP - General Physician Remedy Developer 07/04/21
== END 2024-12-15 12:38 | disposition home or self-care (01) ==
LOC: HO.RHES 10:58
PROVIDERS: PCP Internal Medicine; Visit Provider Internal Medicine Rheumatology
DX: M02.30 Reiter's disease, unspecified site (principal)
CPT/HCPCS: 99204

== ENCOUNTER 2024-12-17 11:26 | Outpatient (REF) | payer OTHER, SELFPAY ==
--- NOTE | ~2024-12-17 | XR_ITS ---
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 FINDINGS: Three views of the left hand are submitted. Osseous mineralization is normal. There is no fracture or dislocation. The joint spaces are preserved. The soft tissues are unremarkable. XR/XR hand LT min 3V IMPRESSION: Unremarkable examination of the left hand. Electronically signed by: Pito Sparrow MD 12/19/2024 10:43 AM EDT
--- NOTE | ~2024-12-17 | XR_ITS ---
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 FINDINGS: Three views of the right hand are submitted. Osseous mineralization is normal. There is no fracture or dislocation. The joint spaces are preserved. The soft tissues are unremarkable. XR/XR hand RT min 3V IMPRESSION: Unremarkable examination of the right hand. Electronically signed by: Pito Sparrow MD 12/19/2024 10:43 AM EDT
--- OUTSIDE RECORDS SUMMARY | 2024-12-17 11:30 | XMS_ITS | Clinical Summary ---
Author Organization [facility] Address [address] [place] [address] Care Team Providers Care Center Medical Director Name Role Phone Jennifer Willams PA-C Primary Care Provider [phone] Allergies Active Allergy Reactions Criticality Noted Date [...] age to complete this topic Care Teams Center Medical Director Relationship Specialty Start Date End Date Jennifer Willams PA-C PCP - General Physician Financial Investment Adviser 07/04/21
--- OUTSIDE RECORDS SUMMARY | 2024-12-17 11:30 | XMS_ITS | Encounter Summary ---
Author Organization [facility] Address [address] [place] [address] Care Team Providers Care Engineering Librarian Name Role Phone Torie Blanton MD Primary Care Provider Unavail able Isamar Shearer MD Primary Care Provider [phone] Encounter Details Date Type Department Care Team Description 10/14/2018 Bunch Maker Report Medical Records [address] [place] [address] Laura Lewis MD Social History Tobacco Use Types Packs/Day [...] on filedocumented in this encounter Care Teams Engineering Librarian Relationship Specialty Start Date End Date Torie Blanton MD PCP - General Internal Medicine 06/14/18 11/21/21 Isamar Shearer MD [address] [place] [address] PCP - General Internal Medicine 11/22/21 documented as of this encounter
--- OUTSIDE RECORDS SUMMARY | 2024-12-17 11:30 | XMS_ITS | Encounter Summary ---
Author Organization [facility] Address [address] [place] [address] Care Team Providers Care Naval Aircrewman Avionics Name Role Phone Torie Blanton MD Primary Care Provider Unavail able Isamar Shearer MD Primary Care Provider [phone] Encounter Details Date Type Department Care Team Description 07/29/2021 Operations Advisor Report Medical Records [address] [place] [address] Otoniel Gan MD Social History Tobacco Use [...] on filedocumented in this encounter Care Teams Naval Aircrewman Avionics Relationship Specialty Start Date End Date Torie Blanton MD PCP - General Internal Medicine 06/14/18 11/21/21 Isamar Shearer MD [address] [place] [address] PCP - General Internal Medicine 11/22/21 documented as of this encounter
--- OUTSIDE RECORDS SUMMARY | 2024-12-17 11:30 | XMS_ITS | Encounter Summary ---
Author Organization [facility] Address [address] [place] [address] Care Team Providers Care Global Professional Name Role Phone Torie Blanton MD Primary Care Provider Unavail [facility] Isamar Shearer MD Primary Care Provider [phone] Reason for Visit * Reason Onset Date Comments Letter 09/05/2019 Encounter Details Date Type Department Care Team Description 09/05/2019 Pt. Non Urgent Medic al Question Adult Medicine [address] [address] Torie Blanton MD Social History Tobacco Use Types Packs/Day Years Used Date Smoking Tobacco: Never Smokeless Tobacco: Never Alcohol Use Standard Drinks/Week Comments No 0 (1 standard drink = 0.6 oz pur e alcohol) Sex Assigned at Date Recorded Not on file documented as of this encounter Miscellaneous Notes * Telephone Encounter - Tara Atkinson M.A. - 09/05/2019 3:38 PM ESTFrom: Mikey Brooks To: Torie Blanton MD Sent: 09/05/2019 3:32 PM EST Subject: Needing a letter head stating i received a physical and biometric screening Monica, My employer received a portion of the physical/biometric screening information but they are requiring a letterhead just stating that i received a physical and biometric screening. They will need this TODAY either faxed to attn: HR or emailed to [email or web address] . Thanks so much, Mikey Brooks documented in this encounter Plan of Treatment Not on file documented as of this encounter Visit Diagnoses Not on filedocumented in this encounter Care Teams Global Professional Relationship Specialty Start Date End Date Torie Blanton MD PCP - General Internal Medicine 06/14/18 11/21/21 Isamar Shearer MD [address] [place] [id number] PCP - General Internal Medicine 11/22/21 documented as of this encounter
--- OUTSIDE RECORDS SUMMARY | 2024-12-17 11:30 | XMS_ITS | Encounter Summary ---
Author Organization [facility] Address [address] [place] [address] Care Team Providers Care Engineering Inspector Name Role Phone Torie Blanton MD Primary Care Provider Unavail able Isamar Shearer MD Primary Care Provider [phone] Reason for Visit * Reason Onset Date Comments Letter 08/23/2019 Encounter Details Date Type Department Care Team Description 08/23/2019 Telephone Adult Medicine [address] [address] Torie Blanton MD Letter Social History Tobacco Use Types Packs/Day Years Used Date Smoking Tobacco: Never Smokeless Tobacco: Never Alcohol Use Standard Drinks/Week Comments No 0 (1 standard drink = 0.6 oz pur e alcohol) Sex Assigned at Date Recorded Not on file documented as of this encounter Miscellaneous Notes * Telephone Encounter - Yaquelin Patel LPN - 08/23/2019 1:45 PM EST Left message on her machine letting her know this is not something we would do in the allergy department. * Telephone Encounter - Tara Atkinson M.A. - 08/23/2019 12:52 PM EST Pt requesting a letter from Dr. Galaviz including biometric testing * Telephone Encounter - Bela Singh M.A. - 08/23/2019 9:07 AM EST Left message for pt to returned my call [phone] * Telephone Encounter - Torie Blanton MD - 08/23/2019 8:56 AM EST Patient never got her blood work done. * Telephone Encounter - Tara Atkinson M.A. - 08/23/2019 6:32 AM EST Pt requesting a letter from pcp advising she had her physical exam 11/02/18 which included biometrictesting documented in this encounter Plan of Treatment Not on file documented as of this encounter Visit Diagnoses Not on filedocumented in this encounter Care Teams Engineering Inspector Relationship Specialty Start Date End Date Torie Blanton MD PCP - General Internal Medicine 06/14/18 11/21/21 Isamar Shearer MD [address] [place] [id number] PCP - General Internal Medicine 11/22/21 documented as of this encounter
--- OUTSIDE RECORDS SUMMARY | 2024-12-17 11:30 | XMS_ITS | Clinical Summary ---
Author Organization [facility] Address [address] [place] [address] Care Team Providers Care Aoc Plans Intelligence Officer Name Role Phone Isamar Shearer MD Primary Care Provider [phone] Allergies Active Allergy Reactions Severity Noted Date Comments Eggs Anaphylaxis High 05/09/2021 Nickel Rash/Dermatitis 12/09/2018 Parabens Rash/Dermatitis 12/09/2018 Varicella Virus Vaccine Live 10/26/2018 Blisters on face x3 Medications Medication Sig Dispensed Refills Start Date End Date Status drospirenone-ethinyl estradiol (MACI) 3-0.02 MG per tablet Take 1 tablet by mouth daily. 0 Active cetirizine (ZYRTEC ALLERGY) 10 MG tablet Take 1 Tab by mouth daily for 360 days. 30 Tab 5 10/26/2018 Active fluticasone (FLONASE) 50 MCG/ACT nasal spray 2 Sprays by Nasal route daily. 16 g 5 11/18/2018 Active Cholecalciferol (VITAMIN D) 1000 UNITS Tab Take by mouth. 0 Active Cyanocobalamin (B-12 OR) Take by mouth. 0 Active sumatriptan (IMITREX) 50 MG tablet Take 1 Tab by mouth as needed for Migraine (okay to repeat dose in 2 hours if needed. maximum daily dose is 100 mg). May repeat dose once after 2 hours, if needed. 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 06/21/2020 Obsessive-compulsive disorder 02/23/2019 Obesity (BMI 30-39.9) 10/28/2018 Pruritus 10/26/2018 Perennial allergic rhinitis 10/26/2018 Perennial allergic conjunctivitis of bot h eyes 10/26/2018 Resolved Problems Problem Noted Date Resolved Date Recurrent major depressive disorder 02/23/2019 06/21/2020 Anxiety and depression 06/16/2018 0 Immunizations Name Administration Dates Next Due COVID-19 (Pfizer) 02/05/2021,01/15/2021 Influenza (> 6 Months) 07/13/2017 Tdap 06/26/2017 Family History Medical History Relation Name Comments breast ca Maternal Grandmother later i n life Cervical Cancer Mother Diabetes Paternal Grandmother Allergies Sister Relation Name Status Comments Father Alive Maternal Grandmother Mother Alive Paternal Grandmother Sister Social History Tobacco Use Types Packs/Day Years Used Date Smoking Tobacco: Never Smokeless Tobacco: Never Alcohol Use Standard Drinks/Week Comments No 0 (1 standard drink = 0.6 oz pur e alcohol) Sex Assigned at Date Recorded Not on file Last Filed Vital Signs Vital Sign Reading Time Taken Comments Blood Pressure 122/60 05/09/2021 2:08 PM EDT Pulse 74 05/09/2021 2:08 PM EDT Temperature 36.5 ??C (97.7 ??F) 05/09/2021 2:08 PM ED T Respiratory Rate 14 05/09/2021 2:08 PM EDT Oxygen Saturation 98% 05/09/2021 2:08 PM EDT Inhaled Oxygen Concentration - - Weight 87.6 kg (193 lb 3.2 oz) 05/09/2021 2:08 P M EDT Height 157.5 cm (5' 2 ) 05/09/2021 2:08 PM EDT Body Mass Index 35.34 05/09/2021 2:08 PM EDT Plan of Treatment Health Maintenance Due Date Last Done Comments CERVICAL CANCER SCREENING 10/14/20212018 (External Completion), 08/18/2017 CHOLESTEROL SCREENING 06/16/2023 06/16/2018, 016 BASELINE HEALTH EXAM 18-39 10/28/202310/28, 11/20/2015, 11/20/2015 Covid-19 Vaccine (3 - 2022-2 4 season) 2024 02/05/2021, 01/15/2021 INFLUENZA (#1) 2024 10/28/2018 (Refu sed), 07/13/2017 BMI CHECK/ADVISE 10/05/2024 05/09/2021, 06/2019, 11/18/2018, Additional history exists DTAP/TDAP/TD (3 - Td or Tdap) 07/05/2027 (External Completion), 06/26/2017 PNEUMOCOCCAL VACCINE FOR HIG H RISK PATIENTS (#1) 2054 Care Teams Aoc Plans Intelligence Officer Relationship Specialty Start Date End Date Isamar Shearer MD [address] [place] [id number] PCP - General Internal Medicine 11/22/21
== END 2024-12-17 11:27 | disposition home or self-care (01) ==
LOC: HO.HMGCX 11:26
PROVIDERS: PCP Internal Medicine; Visit Provider Internal Medicine Rheumatology
DX: M02.30 Reiter's disease, unspecified site (principal); M13.0 Polyarthritis, unspecified; M79.641 Pain in right hand; M79.642 Pain in left hand; M06.4 Inflammatory polyarthropathy
CPT/HCPCS: 73130

== ENCOUNTER → 2024-12-17 11:30 | Outpatient (BNV) | payer OTHER, SELFPAY | PROVIDERS: PCP Internal Medicine; Visit Provider Radiology Diagnostic Radiology | DX: M02.341 Reiter's disease, right hand (principal); M02.342 Reiter's disease, left hand | CPT/HCPCS: 73130 ==

== ENCOUNTER 2024-12-23 14:00 | Outpatient (REF) | payer OTHER, SELFPAY ==
[2024-12-23 16:32] LABS: SCAN SMEAR FLAG 1
[2024-12-23 16:34] LABS: Basophils Absolute Auto 0.1 X10*3/uL (0.0-0.2); Basophils Percent Auto 0.7 % (0-2); Eosinophils Percent Auto 0.1 % (0-4); Hematocrit 34.4 % (37.0-47.0); Hemoglobin 10.6 g/dl (12.0-16.0); Imm Gran Abs Auto 0.08 X10*3/uL (0.00-0.03); Imm Gran Pct Auto 0.8 % (0.0-0.4); Lymphocytes Absolute Auto 1.9 X10*3/uL (1.2-4.9); Lymphocytes Percent Auto 19.8 % (20-40); MANUAL DIFF FLAG SCAN; Mean Corpuscular HGB Conc 30.8 g/dl (31.0-35.0); Mean Corpuscular Hemoglobin 18.4 pg (27.0-33.0); Monocytes Absolute Auto 0.2 X10*3/uL (0.1-1.2); Monocytes Percent Auto 1.8 % (2-11); Neutrophils Absolute Auto 7.3 x10*3/uL (2.0-8.3); Neutrophils Percent Auto 76.8 % (45-73); Platelet Count 265 X10*3/uL (160-400); Red Blood Count 5.75 X10*6/uL (4.20-5.50); Red Cell Distribution Width 18.3 % (11.0-16.0); White Blood Count 9.5 X10*3/uL (4.8-10.8)
[2024-12-23 16:44] LABS: Mean Corpuscular Volume 59.8 fL (80.0-98.0); PLT ABN DIST 1
[2024-12-23 17:31] LABS: Alanine Aminotransferase 13 U/L (0-31); Albumin Level 4.6 g/dL (3.5-5.0); Alkaline Phosphatase 43 U/L (39-117); Anion Gap 14 (12-20); Aspartate Amino Transferase 19 U/L (5-31); Bilirubin Total 0.5 mg/dL (0.0-1.0); Blood Urea Nitrogen 13 mg/dL (9-16); Calcium 9.9 mg/dL (8.4-10.2); Carbon Dioxide 24 mmol/L (22-29); Chloride 107 mmol/L (96-108); Estimated Glomerular Filt Rate > 60; Glucose Random 141 mg/dL (60-115); Potassium 4.7 mmol/L (3.3-5.1); Sodium 140 mmol/L (135-145); Total Protein 8.2 g/dL (6.5-8.0)
[2024-12-23 18:40] LABS: SLIDE REVIEW VERIFIED
[2024-12-26 11:44] LABS: CRP High Sensitivity 2.9 mg/L
== END 2024-12-23 14:01 | disposition home or self-care (01) ==
LOC: HO.HMGCLDS 14:00
PROVIDERS: PCP Internal Medicine; Visit Provider Internal Medicine
DX: R79.82 Elevated C-reactive protein (CRP) (principal); D69.6 Thrombocytopenia, unspecified; D58.2 Other hemoglobinopathies; M35.9 Systemic involvement of connective tissue, unspecified
CPT/HCPCS: 36415; 80053; 85025; 86141

== ENCOUNTER 2024-12-26 14:56 | Outpatient (AMB) | payer OTHER, SELFPAY ==
--- NOTE | 2024-12-26 15:10 | A.OFFVIS_ITS ---
Vital Signs 12/26/24 15:11 BP 130/80 Pulse 94 Pulse Oximetry (%) 98 Intake Visit Reasons: refmaco Post-Streptococcal disorder Allergies No Known Allergies Allergy (Verified 12/26/24 15:11) HPI HPI Dr.Kareem maria Post-Streptococcal disorder: Details: She has been on Penicillin for strep infection continuing. SHe has pain hands and discomfort related to strep. There is minimally elevated anti streptolysin but no positive culture for strep at this time. [facility] Medical History Anxiety and depression GERD (gastroesophageal reflux disease) Anemia Surgical History History of wisdom tooth extraction, class I edentulism Hx of tonsillectomy Family History Father Cancer Anxiety Depression Mother Anxiety Depression Maternal Grandmother No problems noted. Maternal Grandfather Cancer Paternal Grandmother Type 2 diabetes mellitus Paternal Grandfather No problems noted. Brother Alcohol abuse Depression Sister Anxiety Depression Son No problems noted. Social History Housing: House Are you a primary patient care assistant to a significant other at home: No Do you presently have visiting nurse or other home services: No Alcohol intake: current Alcohol intake frequency: does not drink Patient Tobacco Use Status: Never used Tobacco e-Cigarette/Vaping Use: Never Used Second Hand Smoke Exposure: No service: No Current occupational status: employed Current occupational exposures/hazards: No Cognitive needs: No Hearing needs: No Vision needs: Yes Review of Systems Const All systems reviewed & are unremarkable except as noted in HPI and below Physical Exam Vital Signs: Last Vital Signs Pulse 94 12/26/24 15:11 BP 130/80 12/26/24 15:11 Pulse Ox 98 12/26/24 15:11 Const General: cooperative Orientation/consciousness: patient oriented x3 HEENT Head: Yes normal to inspection Mouth: Normal oral and palatal mucosa present Eyes General: appearance normal, both eyes and all related structures Pupils: Equal, round and reactive pupils present Resp Effort & Inspection: normal respiratory effort Cardio Rate: regular rate Rhythm: regular rhythm GI Palpation (GI): Soft to palpation and nontender General: Yes no CVA tenderness Back/Spine/Pelvis Back: no CVA tenderness Skin General skin exam: no rashes or lesions noted Neuro General: patient oriented x3 Cranial nerves: Yes CN's II-XII intact bilaterally and Yes Equal, round and reactive pupils present Extrem General: Yes normal to inspection Psych Appearance: grossly normal Assessment & Plan Assessment & Plan (1) Reactive arthritis: Comment: There is no signs of rheumatic fever or ongoing strep. 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 Coding Level of Care Code New Pt Level 3 (35145) Diagnoses Reactive arthritis M02.30
[2024-12-26 15:11] VITALS: BP 130/80; PULSE 94; O2SAT 98
== END 2024-12-26 15:25 | disposition home or self-care (01) ==
LOC: HO.HID 14:57
PROVIDERS: PCP Internal Medicine; Visit Provider Internal Medicine
DX: M02.30 Reiter's disease, unspecified site (principal)
CPT/HCPCS: 99203

== ENCOUNTER 2025-01-11 08:15 | Outpatient (AMB) | payer OTHER, SELFPAY ==
[2025-01-11 08:17] VITALS: BP 140/80; PULSE 84; O2SAT 100; BMI 28.6
--- NOTE | 2025-01-11 08:17 | A.OFFVIS_ITS ---
Vital Signs 01/11/25 08:17 Height 5 ft 1 in Weight 151 lb 2 oz BMI 28.6 BP 140/80 H Blood Pressure Location Rt brachial Position Sitting Pulse 84 Pulse Source Pulse Oximeter Pulse Oximetry (%) 100 Oxygen Delivery Method Room Air Intake Visit Reasons: follow up/ urgent appt req Intake Note: Pt states that she has been having alot of shakiness back pain and weighted arms with migraines pt states that after she has her migraines her left gets weak. Her right arm does the same but not as bad. Pt also states that when she is lying down she feels like her body inside is continuously trembling and she has been experiencing twitching. Pt says everyday she wakes up she feels like she is hungover. Pt explain that when she has the migraines its like flashing lights that continue for and hour after it passes she is completely drained and weak. Accompanied by: Self / Same As Patient Allergies No Known Allergies Allergy (Verified 01/11/25 08:30) HPI HPI follow up/ urgent appt req: Details: She has developed ocular symptoms with seeing lines for about an hour that also precipitates heavy feeling in left arm. She is on neurologists who has diagnosed her with complex migraine. MRI brain has been ordered. Ophthalmology did not find any pathology on her exam to explain her symptoms. She had another episode of ocular symptoms last Thursday that lasted a few hours. Joint pain and swelling has reduced. She continues to have stiffness affecting her function at work with typing and utilizing her hands. She has asked her PCP to complete FMLA forms. She has been on prednisone 5 mg daily for 10 days. When she r educed her prednisone to 5 mg she did not have any change in symptoms. She takes Tylenol as needed for pain. Avoiding oral NSAIDs due to history of gastric sleeve. [facility] Medical History (Updated 01/11/25 @ 09:00 by Gabe Acuña MD) Complicated migraine Anxiety and depression GERD (gastroesophageal reflux disease) Anemia Surgical History History of wisdom tooth extraction, class I edentulism Hx of tonsillectomy Family History Father Cancer Anxiety Depression Mother Anxiety Depression Maternal Grandmother No problems noted. Maternal Grandfather Cancer Paternal Grandmother Type 2 diabetes mellitus Paternal Grandfather No problems noted. Brother Alcohol abuse Depression Sister Anxiety Depression Son No problems noted. Social History Housing: House Are you a primary home health care coordinator to a significant other at home: No Do you presently have visiting nurse or other home services: No Alcohol intake: current Alcohol intake frequency: does not drink Patient Tobacco Use Status: Never used Tobacco e-Cigarette/Vaping Use: Never Used Second Hand Smoke Exposure: No service: No Current occupational status: employed Current occupational exposures/hazards: No Cognitive needs: No Hearing needs: No Vision needs: Yes Review of Systems Const All systems reviewed & are unremarkable except as noted in HPI and below Physical Exam Vital Signs: Last Vital Signs Pulse 84 01/11/25 08:17 BP 140/80 H 01/11/25 08:17 Pulse Ox 100 01/11/25 08:17 Oxygen Delivery Method Room Air 01/11/25 08:17 BMI result Body Mass Index 28.6 Const Other: General: Comfortable CVS: RRR Respiratory: clear to auscultation bilaterally. Good respiratory effort Skin: No lesions seen MSK:Tender right fifth PIP and left 2nd PIP. Tender right MTPs. Weak philosophy specialist bilateral. Normal range of motion upper extremities and lower extremities. Results Reviewed Results Reviewed: Hand x-rays bilateral normal Assessment & Plan Assessment & Plan (1) Reactive arthritis: Comment: Synovitis has resolved on prednisone course. She continues to have polyarthralgias and stiffness involving her hands. She has developed tremors which she reports are felt internally spreading to involve extremities, which may be of prednisone side effect versus new neurological issue. 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 I will monitor off of prednisone to see if tremors resolve. She will call office if she has recurrence of joint swelling for consideration of another course of prednisone GI prophylaxis prescribed while on prednisone Avoid oral NSAIDs in setting of gastric sleeve surgery Continue to use Tylenol as needed for pain control Neurological workup in process with brain MRI. I recommended discussing left arm symptoms with neurologist for consideration of workup for cervical nerve impingement contributing to her symptoms if brain MRI is negative. Return to clinic in 2 weeks Orders: Orders Erythrocyte Sedimentation Rate Today Z79.899 - Other terminal makeup operator (current) drug therapy C Reactive Protein Today Z79.899 - Other terminal makeup operator (current) drug therapy Coding Level of Care Code Est Pt Level 4 (43281) Complex EM visit Add On G2211 Diagnoses Reactive arthritis M02.30
== END 2025-01-11 08:56 | disposition home or self-care (01) ==
LOC: HO.RHES 08:16
PROVIDERS: PCP Internal Medicine; Visit Provider Internal Medicine Rheumatology
DX: M02.30 Reiter's disease, unspecified site (principal)
CPT/HCPCS: 99214

== ENCOUNTER 2025-01-11 13:17 | Outpatient (AMB) | payer OTHER, SELFPAY ==
--- NOTE | 2025-01-11 13:21 | MHC.PC.OV ---
Vital Signs 01/11/25 13:24 Height 5 ft 1 in Weight 152 lb BMI 28.7 BP 126/72 Blood Pressure Location Lt brachial Position Sitting Pulse 88 Pulse Source Pulse Oximeter Pulse Oximetry (%) 99 Oxygen Delivery Method Room Air Intake Visit Reasons: FMLA Paperwork Allergies No Known Allergies Allergy (Verified 01/11/25 08:30) Medication List - Last Reconciled 01/11/25 by Elizabeth Morgan MD drospirenone-ethinyl estradiol 3-0.02 mg 1 tab PO DAILY lorazepam 0.5 mg PO ONCE 10 days multivitamin 1 tab PO DAILY omeprazole 20 mg PO DAILY sertraline 200 mg (2 x 100 mg) PO DAILY 30 days Tobacco use date assessed: 12/06/24 Dental Screening Dental Screen Date: 12/06/24 HPI FMLA Paperwork HPI Details History - The patient is a 34-year-old female presenting FMLA paperwork 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 She has already been evaluated by neurologist for blurring of vision MRI was ordered and is pending at this time - Chest pain episodes are characterized by tachycardia and dyspnea, - The patient stopped work intermittently since 05 December due to medical issues and has consulted several specialists for related conditions. - Referral to another infectious disease specialist has been made due to dissatisfaction with previous consultation. Referral to recommend [facility], Infectious Disease Department placed - Ceased prednisone due to adverse effect concerns. I am starting her on low-dose prednisone to 50 mg b.i.d. at least for next 3 months until she see infectious disease specialist in [place] Her ASO titer continued to be elevated along with CRP and ESR She has also developed pancytopenia We will be repeating labs again today EKG done last month read by Dr. 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 - Contact and schedule an appointment with an alternative infectious disease specialist, specifically recommended at [facility] in [place]. - Follow-up with your neurologist for the management of complex migraines. - Monitor symptoms and reduce activities that aggravate tremors and vision disturbances. - Take lorazepam at night to help with sleep disturbances from anxiety. - Maintain regular communication with insurance and MRI providers to ensure the test is completed. - Adjust work schedule as needed to accommodate health conditions. Limited number of hours provided starting 05 of December until 05 of June this year 4 hours from Thursday to Thursday Review of Systems - General: No fever no chills - Neurological: Present headaches present dizziness - Ear nose throat: No sore throat no hearing difficulty no ear pain - Cardiovascular: No syncope, present chest pain, present palpitations - Gastrointestinal: No nausea vomiting or diarrhea - Endocrine: No polyuria polydipsia no heat intolerance - Genitourinary: No dysuria , no blood in urine Physical Exam General: Patient appears shaky , fine tremors on outstretched hands HEENT: No acute findings Neck: Supple Respiratory system: Able to talk in full sentences, no audible wheeze Cardiovascular: S1-S2 regular in rate and rhythm, no murmur noted Gastrointestinal: No pain Extremities: Arms and hands are stiff and painful CONSTRUCTION PROJECT ADMINISTRATOR: Alert awake oriented x3 motor sensory intact, patient reports brain fog Skin: Normal turgor [facility] Medical History Complicated migraine Anxiety and depression GERD (gastroesophageal reflux disease) Anemia Surgical History History of wisdom tooth extraction, class I edentulism Hx of tonsillectomy Family History Father Cancer Anxiety Depression Mother Anxiety Depression Maternal Grandmother No problems noted. Maternal Grandfather Cancer Paternal Grandmother Type 2 diabetes mellitus Paternal Grandfather No problems noted. Brother Alcohol abuse Depression Sister Anxiety Depression Son No problems noted. Social History Housing: House Are you a primary senior care provider to a significant other at home: No Do you presently have visiting nurse or other home services: No Alcohol intake: current Alcohol intake frequency: does not drink Patient Tobacco Use Status: Never used Tobacco e-Cigarette/Vaping Use: Never Used Second Hand Smoke Exposure: No service: No Current occupational status: employed Current occupational exposures/hazards: No Cognitive needs: No Hearing needs: No Vision needs: Yes Questionnaire Thrive Questionnaire Date Thrive assessed: 12/06/24 THAI-7 AMB Questionnaire THAI-7 Date THAI - 7 assessed: 12/06/24 Source: Developed by Drs. Pito Espinosa, Sissy Oseguera, Reggie Onofre and colleagues, with an educational betty from [employer]. 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 Significant drop in hemoglobin D58.2 Elevated C-reactive protein (CRP) R79.82 Thrombocytopenia D69.6 Reactive arthritis of multiple sites M02.39 Reactive arthritis location: multiple sites Anxiety, generalized F41.1 Visual changes H53.9 Palpitations R00.2 Other chest pain R07.89 Chest pain type: other chest pain Restricted work performance Z56.89 Time Spent (min) 40 Comment Complex visit, coordination of care, paperwork Assessment & Plan Assessment & Plan (1) Post-Streptococcal disorder: Code(s): M35.9 - Systemic involvement of connective tissue, unspecified Category: Medical (2) Significant drop in hemoglobin: Code(s): D58.2 - Other hemoglobinopathies Category: Medical (3) Elevated C-reactive protein (CRP): Code(s): R79.82 - Elevated C-reactive protein (CRP) Category: Medical (4) Thrombocytopenia: Code(s): D69.6 - Thrombocytopenia, unspecified Category: Medical (5) Reactive arthritis: Comment: Synovitis has resolved on prednisone course. She continues to have polyarthralgias and stiffness involving her hands. She has developed tremors which she reports are felt internally spreading to involve extremities, which may be of prednisone side effect versus new neurological issue. 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, multiple sites (6) Anxiety, generalized: Code(s): F41.1 - Generalized anxiety disorder Category: Medical (7) Visual changes: Code(s): H53.9 - Unspecified visual disturbance Category: Medical (8) Palpitations: Code(s): R00.2 - Palpitations Category: Medical (9) Chest pain: Code(s): R07.9 - Chest pain, unspecified Category: Medical Qualifiers: Chest pain type: other chest pain Qualified Code(s): R07.89 - Other chest pain (10) Restricted work performance: Code(s): Z56.89 - Other problems related to employment Category: Social Hx Plan History - The patient is a 34-year-old female presenting FMLA paperwork 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 She has already been evaluated by neurologist for blurring of vision MRI was ordered and is pending at this time - Chest pain episodes are characterized by tachycardia and dyspnea, - The patient stopped work intermittently since 05 December due to medical issues and has consulted several specialists for related conditions. - Referral to another infectious disease specialist has been made due to dissatisfaction with previous consultation. Referral to recommend [facility], Infectious Disease Department placed - Ceased prednisone due to adverse effect concerns. I am starting her on low-dose prednisone to 50 mg b.i.d. at least for next 3 months until she see infectious disease specialist in [place] Her ASO titer continued to be elevated along with CRP and ESR She has also developed pancytopenia We will be repeating labs again today EKG done last month read by Dr. 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 - Contact and schedule an appointment with an alternative infectious disease specialist, specifically recommended at [facility] in [place]. - Follow-up with your neurologist for the management of complex migraines. - Monitor symptoms and reduce activities that aggravate tremors and vision disturbances. - Take lorazepam at night to help with sleep disturbances from anxiety. - Maintain regular communication with insurance and MRI providers to ensure the test is completed. - Adjust work schedule as needed to accommodate health conditions. Limited number of hours provided starting 05 of December until 05 of June this year 4 hours from Thursday to Thursday Orders: Orders Complete Blood Count Auto Diff Today D58.2 - Other hemoglobinopathies, D69.6 - Thrombocytopenia, unspecified, M02.30 - Carol's disease, unspecified site, M35.9 - Systemic involvement of connective tissue, unspecified, R79.82 - Elevated C-reactive protein (CRP) Comprehensive Met. Panel Today D58.2 - Other hemoglobinopathies, D69.6 - Thrombocytopenia, unspecified, M02.30 - Carol's disease, unspecified site, M35.9 - Systemic involvement of connective tissue, unspecified, R79.82 - Elevated C-reactive protein (CRP) Streptolysin O Antibody Today D58.2 - Other hemoglobinopathies, D69.6 - Thrombocytopenia, unspecified, M02.30 - Carol's disease, unspecified site, M35.9 - Systemic involvement of connective tissue, unspecified, R79.82 - Elevated C-reactive protein (CRP) Referrals Infectious Disease Referral D58.2 - Other hemoglobinopathies, D69.6 - Thrombocytopenia, unspecified, M02.30 - Carol's disease, unspecified site, M35.9 - Systemic involvement of connective tissue, unspecified, R79.82 - Elevated C-reactive protein (CRP) Medications: New penicillin V potassium 250 mg PO BID 180 tabs 0RF 90 days Changed From lorazepam 0.5 mg PO ONCE 10 days 10 tabs 0RF To lorazepam 0.5 mg PO .qhs 30 tabs 0RF 30 days
[2025-01-11 13:24] VITALS: BP 126/72; PULSE 88; O2SAT 99; BMI 28.7
--- NOTE | 2025-01-11 13:24 | A.OFFPC_ITS ---
Vital Signs 01/11/25 13:24 Height 5 ft 1 in Weight 152 lb BMI 28.7 BP 126/72 Blood Pressure Location Lt brachial Position Sitting Pulse 88 Pulse Source Pulse Oximeter Pulse Oximetry (%) 99 Oxygen Delivery Method Room Air Intake Visit Reasons: FMLA Paperwork Allergies No Known Allergies Allergy (Verified 01/11/25 08:30) Tobacco use date assessed: 12/06/24 Dental Screening Dental Screen Date: 01/11/25 Did you have a dental visit in the last 12 months?: Yes Did you have a dental problem in the last 6 months where you did not have access to dental care?: No Was dental information given to patient?: Patient has dentist [facility] Medical History (Updated 01/11/25 @ 09:00 by Gabe Acuña MD) Complicated migraine Anxiety and depression GERD (gastroesophageal reflux disease) Anemia Surgical History History of wisdom tooth extraction, class I edentulism Hx of tonsillectomy Family History Father Cancer Anxiety Depression Mother Anxiety Depression Maternal Grandmother No problems noted. Maternal Grandfather Cancer Paternal Grandmother Type 2 diabetes mellitus Paternal Grandfather No problems noted. Brother Alcohol abuse Depression Sister Anxiety Depression Son No problems noted. Social History Housing: House Are you a primary animal daycare provider to a significant other at home: No Do you presently have visiting nurse or other home services: No Alcohol intake: current Alcohol intake frequency: does not drink Patient Tobacco Use Status: Never used Tobacco e-Cigarette/Vaping Use: Never Used Second Hand Smoke Exposure: No service: No Current occupational status: employed Current occupational exposures/hazards: No Cognitive needs: No Hearing needs: No Vision needs: Yes Questionnaire PHQ-9 Over the last 2 weeks, how often have you been bothered by any of the following problems? 10538 - PHQ-9 Billing: Patient declined-do not bill Source: Developed by Drs. Pito Espinosa, Sissy Oseguera, Reggie Onofre and colleagues, with an educational betty from [employer]. Thrive Questionnaire Date Thrive assessed: 12/06/24 THAI-7 AMB Questionnaire THAI-7 Date THAI - 7 assessed: 12/06/24 Source: Developed by Drs. Pito Espinosa, Sissy Oseguera, Reggie Onofre and colleagues, with an educational betty from [employer]. Physical exam (Primary Care) Vital Signs: Last Vital Signs Pulse 88 01/11/25 13:24 BP 126/72 01/11/25 13:24 Pulse Ox 99 01/11/25 13:24 Oxygen Delivery Method Room Air 01/11/25 13:24 BMI result Body Mass Index 28.7 Tobacco/Smoking Status: Tobacco use Status Tobacco use date assessed 12/06/24 01/11/25 13:25 Patient Tobacco Use Status Never used Tobacco 01/11/25 13:25 e-Cigarette/Vaping Use Never Used 01/11/25 13:25 Thrive Assessment: Date of Thrive Assessment Date Thrive assessed 12/06/24 01/11/25 13:25 Coding
--- OUTSIDE RECORDS SUMMARY | 2025-01-11 15:19 | XMS_ITS | Clinical Summary ---
Author Organization [facility] Address [address] [place] [address] Care Team Providers Care Machine Turner Name Role Phone Jennifer Willams PA-C Primary Care Provider [phone] Allergies Active Allergy Reactions Criticality Noted Date [...] age to complete this topic Care Teams Machine Turner Relationship Specialty Start Date End Date Jennifer Willams PA-C PCP - General Physician Compliance Mgr 07/04/21
== END 2025-01-11 13:48 | disposition home or self-care (01) ==
PROVIDERS: PCP Internal Medicine; Visit Provider Internal Medicine
DX: M35.9 Systemic involvement of connective tissue, unspecified (principal); D58.2 Other hemoglobinopathies; D69.6 Thrombocytopenia, unspecified; M02.39 Reiter's disease, multiple sites; R79.82 Elevated C-reactive protein (CRP); F41.1 Generalized anxiety disorder; H53.9 Unspecified visual disturbance; R00.2 Palpitations; R07.89 Other chest pain; Z56.89 Other problems related to employment

== ENCOUNTER → 2025-01-11 13:51 | Outpatient (REF) | payer OTHER, SELFPAY ==
--- NOTE | 2025-01-11 14:54 | CA_ITS ---
Transthoracic Echocardiogram Patient (Last, First, Middle): Mikey Brooks, Gender: Female Date of : 1990 Age: 34 Procedure Date: 01/11/2025 Procedure Type: Transthoracic Echocardiogram Location: OP Height: 154.94 cm Weight: 68.95 kg BSA: 1.68 m2 Heart Rate: bpm BP: 126 / 72 mmHg Bakelite Molder: MALACHI Lott MD: Elizabeth Morgan MD Chip Mixing Machine Operator: Raman Pagan MD Symptoms: R00.2 - Palpitations Study Quality: Adequate ECG Rhythm: Sinus Conclusions: - Overall normal study with upper limits of normal RV systolic pressure Findings Left Ventricle Normal left ventricular size, thickness, and systolic function. The visually estimated ejection fraction is between 55-60%. Spectral Doppler is indicative of a normal filling pattern. Right Ventricle Normal right ventricular cavity size and systolic function. Atria Both atria are normal in size. Interatrial shunt cannot be excluded. Aortic Valve Normal aortic valve structure and function. There is no aortic valve stenosis. There is no aortic valve regurgitation. Mitral Valve Normal mitral valve structure and function. There is trace mitral valve regurgitation. There is no mitral valve stenosis. Pulmonic Valve The pulmonic valve is likely normal. Tricuspid Valve Likely normal tricuspid valve structure and function. There is trace tricuspid valve regurgitation. Normal right atrial pressure. There is no evidence of pulmonary hypertension. Great Vessels All visible segments of the aorta are normal in size. The pulmonary artery was not well visualized. Venous The inferior vena cava is normal in size and collapses greater than 50% with inspiration. Pericardium/Pleural There is no evidence of pericardial effusion. Prior Study Comparison No prior study available for comparison. Measurements 2D Linear Measurements IVSd: 0.74 0.6-0.9/0.6-1.0 cm LVIDd: 4.52 3.9-5.3/4.2-5.9 cm LVIDd Index: 2.69 2.4-3.2/2.2-3.1 cm/m2 LVIDs: 2.80 2.0-3.6 cm LVPWd: 0.77 0.7-1.1 cm LA Diam: 3.00 2.7-3.8/3.0-4.0 cm LAIDs Index: 1.79 1.5-2.3 cm/m2 LV Mass: 131.53 67-162/88-224 g LV Mass Index: 78.29 43-95/49-115 g/m2 LVOT Diam: 2.00 3.0+(-)1.3 cm 2D Systolic Function EF 4C: 58.10 >55% EF 2C: 59.20 >55% EF BiP: 59.10 >55% Mitral Valve MV Pk E: 1.07 MV PK A: 0.84 MV Decel Time: 153.00 E/A: 1.30 E'Lateral: 17.80 E'Medial: 9.25 E/E' Med: 11.60 E/E' Lat: 6.00 PHT: 45.00 MVA PHT: 4.89 [place]el [place]: 6.95 Aortic Valve AoV Pk Brandon: 1.90 AoV Mn Brandon: 1.27 AoV VTI: 0.37 AoV Pk Grad: 14.00 Aov Mn Grad: 7.00 ANIL Cont.VTI: 2.05 LVOT LVOT Pk Brandon: 1.16 LVOT Mn Brandon: 0.79 LVOT VTI: 0.24 LVOT Pk Grad: 5.00 LVOT Mn Grad: 3.00 LVOT Diam: 2.00 LVOT Area: 3.14 Diastolic Function MV Pk E: 1.07 MV Pk A: 0.84 E/A: 1.30 E'Medial: 9.25 E/E' Med: 11.60 E' Laterial: 17.80 E/E' Lat: 6.00 Right Ventricle TAPSE (mm): 26.10 TVS' Brandon: 12.00 Tricuspid Valve TR Pk Brandon: 3.00 TR Pk Grad: 36.00 RA Press: 3.00 RVSP: 39.00 Great Vessels Aorta Sinus of Valsalva: 3.00 2.0-3.5 cm Ao Asc: 3.00 2.1-3.4 cm Ao Arch: 2.60 Updated in Other Vendor System with Status of Final Raman Pagan MD electronically signed on 01/12/2025 4:13:38 PM with status of Final
--- OUTSIDE RECORDS SUMMARY | 2025-01-11 16:04 | XMS_ITS | Encounter Summary ---
Author Organization [facility] Address [address] [place] [address] Care Team Providers Care City Planner Name Role Phone Torie Blanton MD Primary Care Provider Unavail [facility] Isamar Shearer MD Primary Care Provider [phone] Reason for Visit * Reason Onset Date Comments Letter 09/05/2019 Encounter Details Date Type Department Care Team Description 09/05/2019 Pt. Non Urgent Medic al Question Adult Medicine [address] [address] Torie Blanton MD Social History Tobacco Use [...] 09/05/2019 3:38 PM ESTFrom: Mikey Brooks To: oTrie Blanotn MD Sent: 09/05/2019 3:32 PM EST Subject: Needing a letter head stating i received a physical and biometric screening Monica, My employer received a portion of the physical/biometric screening information but they are requiring a letterhead just stating that i received a physical and biometric screening. They will need this TODAY either faxed to attn: HR or emailed to [email or web address] . Thanks so much, Mikey Brooks documented in this encounter Plan of Treatment Not on file documented as of this encounter Visit Diagnoses Not on filedocumented in this encounter Care Teams City Planner Relationship Specialty Start Date End Date Torie Blanton MD PCP - General Internal Medicine 06/14/18 11/21/21 Isamar Shearer MD [address] [place] [id number] PCP - General Internal Medicine 11/22/21 documented as of this encounter
--- OUTSIDE RECORDS SUMMARY | 2025-01-11 16:04 | XMS_ITS | Clinical Summary ---
Author Organization [facility] Address [address] [place] [address] Care Team Providers Care Tank Builder And Erector Name Role Phone Isamar Shearer MD Primary Care Provider [phone] Allergies Active Allergy Reactions Severity Noted Date [...] - 2022-2 4 season) 2024 02/05/2021, 01/15/2021 BMI CHECK/ADVISE 10/05/2024 05/09/2021, 06/2019, 11/18/2018, Additional history exists INFLUENZA (Season Ended) 2025 019 (Refused), 07/13/2017 DTAP/TDAP/TD (3 - Td or Tdap) 07/05/2027 (External Completion), 06/26/2017 PNEUMOCOCCAL VACCINE FOR HIG H RISK PATIENTS (#1) 2054 Care Teams Tank Builder And Erector Relationship Specialty Start Date End Date Isamar Shearer MD [address] [place] [address] PCP - General Internal Medicine 11/22/21
--- OUTSIDE RECORDS SUMMARY | 2025-01-11 16:04 | XMS_ITS | Encounter Summary ---
Author Organization [facility] Address [address] [place] [address] Care Team Providers Care Vice President Of Product Marketing Name Role Phone Torie Blanton MD Primary Care Provider Unavail able Isamar Shearer MD Primary Care Provider [phone] Encounter Details Date Type Department Care Team Description 01/31/2021 Hospital Medical Records [address] [place] [address] Maricel Viera DO Social History Tobacco Use Types Packs/Day Years [...] on filedocumented in this encounter Care Teams Vice President Of Product Marketing Relationship Specialty Start Date End Date Torie Blanton MD PCP - General Internal Medicine 06/14/18 11/21/21 Isamar Shearer MD [address] [place] [address] PCP - General Internal Medicine 11/22/21 documented as of this encounter
--- OUTSIDE RECORDS SUMMARY | 2025-01-11 16:04 | XMS_ITS | Clinical Summary ---
Author Organization [facility] Address [address] [place] [address] Care Team Providers Care Grommet Machine Operator Name Role Phone Jennifer Willams PA-C Primary Care Provider [phone] Allergies Active Allergy Reactions Criticality Noted Date [...] age to complete this topic Care Teams Grommet Machine Operator Relationship Specialty Start Date End Date Jennifer Willams PA-C PCP - General Physician Shoe Stainer 07/04/21
[2025-01-11 16:18] LABS: Eosinophils Absolute Auto 0.2 X10*3/uL (0.0-0.4); Eosinophils Percent Auto 1.6 % (0-4); Mean Corpuscular Hemoglobin 18.8 pg (27.0-33.0); Red Cell Distribution Width 18.5 % (11.0-16.0); SCAN SMEAR FLAG 1
[2025-01-11 16:20] LABS: Basophils Absolute Auto 0.1 X10*3/uL (0.0-0.2); Basophils Percent Auto 0.8 % (0-2); Hemoglobin 11.6 g/dl (12.0-16.0); Imm Gran Abs Auto 0.07 X10*3/uL (0.00-0.03); Imm Gran Pct Auto 0.6 % (0.0-0.4); Lymphocytes Absolute Auto 5.8 X10*3/uL (1.2-4.9); Lymphocytes Percent Auto 45.7 % (20-40); MANUAL DIFF FLAG SCAN; Mean Corpuscular HGB Conc 31.4 g/dl (31.0-35.0); Monocytes Absolute Auto 0.8 X10*3/uL (0.1-1.2); Monocytes Percent Auto 6.5 % (2-11); Neutrophils Absolute Auto 5.7 x10*3/uL (2.0-8.3); Neutrophils Percent Auto 44.8 % (45-73); Platelet Count 274 X10*3/uL (160-400); Red Blood Count 6.16 X10*6/uL (4.20-5.50); White Blood Count 12.6 X10*3/uL (4.8-10.8)
[2025-01-11 16:24] LABS: Mean Corpuscular Volume 60.1 fL (80.0-98.0)
[2025-01-11 16:25] LABS: PLT ABN DIST 1
[2025-01-11 16:35] LABS: Alanine Aminotransferase 13 U/L (0-31); Albumin Level 4.8 g/dL (3.5-5.0); Anion Gap 12 (12-20); Aspartate Amino Transferase 18 U/L (5-31); Bilirubin Total 0.6 mg/dL (0.0-1.0); Blood Urea Nitrogen 11 mg/dL (9-16); C Reactive Protein 0.47 mg/dL (< or = 0.50); Carbon Dioxide 26 mmol/L (22-29); Chloride 105 mmol/L (96-108); Estimated Glomerular Filt Rate > 60; Glucose Random 78 mg/dL (60-115); Potassium 4.4 mmol/L (3.3-5.1); Sodium 139 mmol/L (135-145); Total Protein 7.8 g/dL (6.5-8.0)
[2025-01-11 16:48] LABS: Alkaline Phosphatase 41 U/L (39-117)
[2025-01-11 16:51] LABS: SLIDE REVIEW VERIFIED
[2025-01-11 16:55] LABS: Erythrocyte Sedimentation Rate 2 MM/HR (0-20)
[2025-01-12 06:23] LABS: Streptolysin O Antibody 287 IU/mL (<200)
== END ==
LOC: HO.CARD 13:51
PROVIDERS: PCP Internal Medicine; Referring Provider Internal Medicine Rheumatology; Visit Provider Internal Medicine
DX: R07.9 Chest pain, unspecified (principal); R00.2 Palpitations; M35.9 Systemic involvement of connective tissue, unspecified; M02.30 Reiter's disease, unspecified site; R79.82 Elevated C-reactive protein (CRP); D58.2 Other hemoglobinopathies; D69.6 Thrombocytopenia, unspecified; Z79.899 Other long term (current) drug therapy
CPT/HCPCS: 36415; 80053; 85025; 85652; 86060; 86140; 93306

== ENCOUNTER → 2025-01-11 14:54 | Outpatient (BNV) | payer OTHER, SELFPAY | PROVIDERS: PCP Internal Medicine; Referring Provider Internal Medicine Rheumatology; Visit Provider Internal Medicine Cardiovascular Disease | DX: R07.9 Chest pain, unspecified (principal); R00.2 Palpitations | CPT/HCPCS: 93306 ==

== ENCOUNTER 2025-01-20 12:09 | Outpatient (REF) | payer OTHER, SELFPAY ==
--- OUTSIDE RECORDS SUMMARY | 2025-01-20 13:00 | XMS_ITS | Encounter Summary ---
Author Organization [facility] Address [address] [place] [address] Care Team Providers Care Electrician Ship Name Role Phone Torie Blanton MD Primary Care Provider Unavail able Isamar Shearer MD Primary Care Provider [phone] Encounter Details Date Type Department Care Team Description 10/14/2018 Boat Canvas Maker Installer Report Medical Records [address] [place] [address] Laura Lewis MD Social History Tobacco Use [...] on filedocumented in this encounter Care Teams Electrician Ship Relationship Specialty Start Date End Date Torie Blanton MD PCP - General Internal Medicine 06/14/18 11/21/21 Isamar Shearer MD [address] [place] [address] PCP - General Internal Medicine 11/22/21 documented as of this encounter
--- OUTSIDE RECORDS SUMMARY | 2025-01-20 13:00 | XMS_ITS | Encounter Summary ---
Author Organization [facility] Address [address] [place] [address] Care Team Providers Care Business Machine Operator Name Role Phone Torie Blanton MD Primary Care Provider Unavail able Isamar Shearer MD Primary Care Provider [phone] Encounter Details Date Type Department Care Team Description 01/31/2021 Hospital Medical Records [address] [place] [address] Maricel Viera DO Social History Tobacco Use [...] on filedocumented in this encounter Care Teams Business Machine Operator Relationship Specialty Start Date End Date Torie Blanton MD PCP - General Internal Medicine 06/14/18 11/21/21 Isamar Shearer MD [address] [place] [address] PCP - General Internal Medicine 11/22/21 documented as of this encounter
--- OUTSIDE RECORDS SUMMARY | 2025-01-20 13:00 | XMS_ITS | Encounter Summary ---
Author Organization [facility] Address [address] [place] [address] Care Team Providers Care Thermostat Repairer Name Role Phone Torie Blanton MD Primary Care Provider Unavail able Isamar Shearer MD Primary Care Provider [phone] Reason for Visit * Reason Onset Date Comments Letter 08/23/2019 Encounter Details Date Type Department Care Team Description 08/23/2019 Telephone Adult Medicine [address] [address] Torie Blanton MD Letter Social History Tobacco [...] on filedocumented in this encounter Care Teams Thermostat Repairer Relationship Specialty Start Date End Date Torie Blanton MD PCP - General Internal Medicine 06/14/18 11/21/21 Isamar Shearer MD [address] [place] [id number] PCP - General Internal Medicine 11/22/21 documented as of this encounter
--- OUTSIDE RECORDS SUMMARY | 2025-01-20 13:00 | XMS_ITS | Clinical Summary ---
Author Organization [facility] Address [address] [place] [address] Care Team Providers Care Youth Director Name Role Phone Jennifer Willams PA-C Primary Care Provider [phone] Allergies Active Allergy Reactions Criticality Noted Date [...] age to complete this topic Care Teams Youth Director Relationship Specialty Start Date End Date Jennifer Willams PA-C PCP - General Physician Senior Manager Quality Assurance 07/04/21
[2025-01-20 13:15] LABS: MANUAL DIFF FLAG NO
[2025-01-20 13:29] LABS: Basophils Absolute Auto 0.1 X10*3/uL (0.0-0.2); Basophils Percent Auto 0.9 % (0-2); Eosinophils Absolute Auto 0.4 X10*3/uL (0.0-0.4); Eosinophils Percent Auto 4.4 % (0-4); Hematocrit 35.6 % (37.0-47.0); Hemoglobin 10.8 g/dl (12.0-16.0); Imm Gran Abs Auto 0.03 X10*3/uL (0.00-0.03); Imm Gran Pct Auto 0.3 % (0.0-0.4); Mean Corpuscular HGB Conc 30.3 g/dl (31.0-35.0); Mean Corpuscular Hemoglobin 18.5 pg (27.0-33.0); Monocytes Absolute Auto 0.5 X10*3/uL (0.1-1.2); Monocytes Percent Auto 5.9 % (2-11); Neutrophils Absolute Auto 4.8 x10*3/uL (2.0-8.3); Neutrophils Percent Auto 54.5 % (45-73); Platelet Count 248 X10*3/uL (160-400); Red Blood Count 5.83 X10*6/uL (4.20-5.50); Red Cell Distribution Width 17.5 % (11.0-16.0); White Blood Count 8.9 X10*3/uL (4.8-10.8)
[2025-01-20 13:30] LABS: Mean Corpuscular Volume 61.1 fL (80.0-98.0)
[2025-01-20 14:11] LABS: Creatinine Urine 48.66 mg/dL
[2025-01-20 14:29] LABS: Alanine Aminotransferase 11 U/L (0-31); Albumin Level 4.5 g/dL (3.5-5.0); Anion Gap 11 (12-20); Aspartate Amino Transferase 20 U/L (5-31); Bilirubin Total 0.4 mg/dL (0.0-1.0); Blood Urea Nitrogen 11 mg/dL (9-16); C Reactive Protein 0.32 mg/dL (< or = 0.50); Calcium 9.8 mg/dL (8.4-10.2); Carbon Dioxide 27 mmol/L (22-29); Chloride 105 mmol/L (96-108); Estimated Glomerular Filt Rate > 60; Glucose Random 80 mg/dL (60-115); Potassium 3.9 mmol/L (3.3-5.1); Sodium 139 mmol/L (135-145); Total Protein 7.3 g/dL (6.5-8.0)
[2025-01-20 14:32] LABS: Erythrocyte Sedimentation Rate 2 MM/HR (0-20)
[2025-01-20 19:12] LABS: Alkaline Phosphatase 44 U/L (39-117)
[2025-01-23 11:07] LABS: Complement C3 127 mg/dL (83-193)
[2025-01-23 16:58] LABS: Anti DNA DS Antibody 1 IU/mL; Antibody to SS-A Antigen <1.0 NEG AI (<1.0 NEG); Antibody to SS-B Antigen <1.0 NEG AI (<1.0 NEG); SM/Ribonucleoprotein Ab <1.0 NEG AI (<1.0 NEG); Smith Protein <1.0 NEG AI (<1.0 NEG)
[2025-01-24 14:24] LABS: Anti Nuclear Antibody Screen NEGATIVE (NEGATIVE)
== END 2025-01-20 12:10 | disposition home or self-care (01) ==
LOC: HO.HMGCLDS 12:09
PROVIDERS: PCP Internal Medicine; Visit Provider Student in an Organized Health Care Education/Training Program
DX: M02.39 Reiter's disease, multiple sites (principal); R42 Dizziness and giddiness
CPT/HCPCS: 36415; 80053; 82570; 85025; 85652; 86038; 86140; 86160; 86225; 86235

== ENCOUNTER 2025-01-26 10:39 | Outpatient (AMB) | payer OTHER, SELFPAY ==
--- NOTE | 2025-01-26 10:41 | A.OFFVIS_ITS ---
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 Accompanied by: Self / Same As Patient Allergies No Known Allergies Allergy (Verified 01/26/25 10:45) HPI HPI 1 Month: Details: Last week she woke with facial rash and swelling. It comes and goes about 4 times last week. She takes Benadryl and it resolves. On thursday, she had saw lines then went to sleep. She woke up with left arm feeling heaviness. Hands were stiff. Resolved after 2 days. She has been having ocular migraines at least once a week. She follows with a neurologist. [facility] Medical History Complicated migraine Anxiety and depression GERD (gastroesophageal reflux disease) Anemia Surgical History History of wisdom tooth extraction, class I edentulism Hx of tonsillectomy Family History Father Cancer Anxiety Depression Mother Anxiety Depression Maternal Grandmother No problems noted. Maternal Grandfather Cancer Paternal Grandmother Type 2 diabetes mellitus Paternal Grandfather No problems noted. Brother Alcohol abuse Depression Sister Anxiety Depression Son No problems noted. Social History Housing: House Are you a primary account executive healthcare to a significant other at home: No Do you presently have visiting nurse or other home services: No Alcohol intake: current Alcohol intake frequency: does not drink Patient Tobacco Use Status: Never used Tobacco e-Cigarette/Vaping Use: Never Used Second Hand Smoke Exposure: No service: No Current occupational status: employed Current occupational exposures/hazards: No Cognitive needs: No Hearing needs: No Vision needs: Yes Review of Systems Const All systems reviewed & are unremarkable except as noted in HPI and below Physical Exam Vital Signs: Last Vital Signs Pulse 77 01/26/25 10:44 BP 130/50 L 01/26/25 10:44 Pulse Ox 100 01/26/25 10:44 Oxygen Delivery Method Room Air 01/26/25 10:44 BMI result Body Mass Index 30.0 Const Other: General: Comfortable CVS: RRR Respiratory: clear to auscultation bilaterally. Good respiratory effort Skin: No lesions seen MSK: No tender joints. No synovitis. Normal range of motion upper extremities and lower extremities. Assessment & Plan Assessment & Plan (1) Reactive arthritis: Comment: She is off of prednisone with resolution of joint symptoms. We we discussed the natural course of reactive arthritis with it being self-limited in most cases. She will call office if she has recurrence of symptoms. Rheumatology history: Reactive arthritis in setting of strep infection (synovitis in hands with polyarthralgias and stiffness). Resolved with prednisone course. 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 She does not have a rash at this time. She has not changed any of her products or started any new medications. Her rash is not typical for cutaneous manifestation of rheumatological condition. Code(s): R21 - Rash and other nonspecific skin eruption Category: Medical Plan: If facial rash and swelling reoccurs, she will contact PCP for further evaluation Coding Level of Care Code Est Pt Level 4 (57885) Complex EM visit Add On G2211 Diagnoses Reactive arthritis of multiple sites M02.39 Reactive arthritis location: multiple sites Rash R21
[2025-01-26 10:44] VITALS: BP 130/50; PULSE 77; O2SAT 100
--- OUTSIDE RECORDS SUMMARY | 2025-01-26 12:25 | XMS_ITS | Clinical Summary ---
Author Organization [facility] Address [address] [place] [address] Care Team Providers Care Operator Maintainer Name Role Phone Jennifer Willams PA-C Primary Care Provider [phone] Allergies Active Allergy Reactions Criticality Noted Date [...] age to complete this topic Care Teams Operator Maintainer Relationship Specialty Start Date End Date Jennifer Willams PA-C PCP - General Physician Director Search Marketing Strategies 07/04/21
== END 2025-01-26 11:07 | disposition home or self-care (01) ==
LOC: HO.RHES 10:40
PROVIDERS: PCP Internal Medicine; Visit Provider Internal Medicine Rheumatology
DX: M02.39 Reiter's disease, multiple sites (principal); R21 Rash and other nonspecific skin eruption
CPT/HCPCS: 99214

== ENCOUNTER 2025-03-23 09:30 | Outpatient (REF) | payer OTHER, SELFPAY ==
[2025-03-23 10:18] LABS: MANUAL DIFF FLAG NO
--- OUTSIDE RECORDS SUMMARY | 2025-03-23 10:18 | XMS_ITS | Clinical Summary ---
Author Organization [facility] Address [address] [place] [address] Care Team Providers Care Long Haul Truck Driver Name Role Phone Jennifer Willams PA-C Primary Care Provider [phone] Allergies Active Allergy Reactions Criticality Noted Date [...] 82 07/29/2021 10:34 AM EDT Temperature 37 C (98.6 F) 07/29/2021 10:34 AM EDT Respiratory Rate - [...] Cancer Screening (Pap Smear) 2010 COVID-19 Vaccine ( - 2023-2 5 season) 2024 02/05/2021, 01/15/2021 Influenza Vaccine (Season Ended) 2025 07/13/2017 DTap / Tdap / Td (2 - Td or Tdap) 06/26/2027 06/26/2017 RSV Ped < 20 months Aged Out No longe r eligible based on patient's age to complete this topic Care Teams Long Haul Truck Driver Relationship Specialty Start Date End Date Jennifer Willams PA-C PCP - General Physician Account Retention Representative 07/04/21
[2025-03-23 10:34] LABS: Basophils Absolute Auto 0.1 X10*3/uL (0.0-0.2); Basophils Percent Auto 1.2 % (0-2); Eosinophils Absolute Auto 0.5 X10*3/uL (0.0-0.4); Hematocrit 36.6 % (37.0-47.0); Imm Gran Abs Auto 0.03 X10*3/uL (0.00-0.03); Imm Gran Pct Auto 0.4 % (0.0-0.4); Lymphocytes Absolute Auto 2.8 X10*3/uL (1.2-4.9); Lymphocytes Percent Auto 36.6 % (20-40); Mean Corpuscular HGB Conc 30.1 g/dl (31.0-35.0); Mean Corpuscular Hemoglobin 18.1 pg (27.0-33.0); Mean Corpuscular Volume 60.1 fL (80.0-98.0); Monocytes Absolute Auto 0.5 X10*3/uL (0.1-1.2); Monocytes Percent Auto 6.3 % (2-11); Neutrophils Absolute Auto 3.8 x10*3/uL (2.0-8.3); Neutrophils Percent Auto 49.5 % (45-73); Platelet Count 227 X10*3/uL (160-400); Red Blood Count 6.09 X10*6/uL (4.20-5.50); Red Cell Distribution Width 17.4 % (11.0-16.0); White Blood Count 7.7 X10*3/uL (4.8-10.8)
[2025-03-23 10:44] LABS: Estimated Average Glucose 85 mg/dL; Hemoglobin A1c % 4.6 % (<6.0)
[2025-03-23 11:42] LABS: Alanine Aminotransferase 10 U/L (0-31); Albumin Level 4.6 g/dL (3.5-5.0); Alkaline Phosphatase 47 U/L (39-117); Anion Gap 9 (12-20); Aspartate Amino Transferase 22 U/L (5-31); Bilirubin Total 0.6 mg/dL (0.0-1.0); Blood Urea Nitrogen 14 mg/dL (9-16); C Reactive Protein 0.23 mg/dL (< or = 0.50); Calcium 9.8 mg/dL (8.4-10.2); Carbon Dioxide 26 mmol/L (22-29); Chloride 109 mmol/L (96-108); Cholesterol 206 mg/dL (<200); Estimated Glomerular Filt Rate > 60; Ferritin 15 ng/mL (10-122); Glucose Random 74 mg/dL (60-115); HDL Cholesterol 75 mg/dL (>40); Insulin 7 uU/mL (2-29); Iron 94 mcg/dL (30-160); LDL Cholesterol Calculated 115 mg/dL (<100); Percent Iron Saturation 32 % (15-50); Potassium 4.3 mmol/L (3.3-5.1); Sodium 140 mmol/L (135-145); TSH reflex Free T4 1.44 uIU/mL (0.32-4.0); Total Iron Binding Capacity 298 mcg/dL (228-428); Total Protein 7.1 g/dL (6.5-8.0); Triglycerides 80 mg/dL (<150); Unsaturated Iron Binding 204 ug/dL
[2025-03-23 12:06] LABS: Folate 7.8 ng/mL (> or = 4.0); Vitamin B12 440 pg/mL (200-900)
[2025-03-27 17:38] LABS: Zinc 79 mcg/dL (60-130)
[2025-03-28 03:28] LABS: Vitamin A 69 mcg/dL (38-98)
[2025-03-29 05:53] LABS: Vitamin B1 13 nmol/L (8-30)
== END 2025-03-23 09:31 | disposition home or self-care (01) ==
LOC: HO.HMGCLDS 09:30
PROVIDERS: Physician Assistant Surgical; PCP Internal Medicine; Visit Provider Internal Medicine
DX: Z98.84 Bariatric surgery status (principal); F32.A Depression, unspecified; F41.9 Anxiety disorder, unspecified; E78.5 Hyperlipidemia, unspecified; D64.9 Anemia, unspecified; D69.6 Thrombocytopenia, unspecified; Z13.1 Encounter for screening for diabetes mellitus
CPT/HCPCS: 36415; 80053; 80061; 82306; 82607; 82728; 82746; 83036; 83525; 83540; 84425; 84443; 84590; 84630; 85025; 86140

== ENCOUNTER 2025-04-27 10:59 | Outpatient (AMB) | payer OTHER, SELFPAY ==
--- NOTE | 2025-04-27 11:01 | MHC.OFFVISWM ---
VS Expanded 04/27/25 11:09 BP 108/61 Blood Pressure Location Rt brachial Blood Pressure Position Sitting Pulse 69 Pulse Source Pulse Oximeter Temp 97.2 F Temperature Source Temporal Artery Scan Pulse Oximetry 98 Oxygen Delivery Method Room Air Height 5 ft 1 in Weight 156 lb BMI 29.5 Body Fat % 33.1 Body Fat Mass 51.6 Fat Free Mass 104.2 Visceral Fat Rating 0 Body Water % 47.9 Body Water Mass 74.8 Muscle Mass/Score 99.0 Basal Metabolic Rate/Score 1,434 Intake Visit Reasons: OV PO LSG 10/31/22 General Merchandise Salesperson Required: No Allergies No Known Allergies Allergy (Verified 04/27/25 11:05) Medication List - Last Reconciled 04/27/25 by KOURTNEY Burkett lorazepam 0.5 mg PO .qhs 30 days multivitamin 1 tab PO DAILY sertraline 200 mg (2 x 100 mg) PO DAILY 30 days sumatriptan succinate take 1 tab at onset of headache; if no relief may repeat 1 tab after at least 2 hrs; max = 4 tabs/24 hr PO verapamil ER 300 mg PO BEDTIME HPI Comments Details: This?a?34?yo female who is s/p LSG without hiatal hernia repair on?10/31/22. Presents for 2 year 6 month post op visit. Weight today is 156 pounds, with a BMI of 29.5. There has been a 66.2 pound weight loss,(initial weight 222.2 pounds) since starting the program on 08/08/22 reflecting a 29.7% total body weight loss and a weight loss of 32 pounds since surgery (operative weight 188 pounds) reflecting a 17 % TBWL since surgery. She is taking Huy-slim MVI 2 per day. She states that over the last year or so she had several medical issues including post streptococcal reactive arthritis. She also developed migraines. She required steroids and antibiotics over a month, that has since resolved. She has also recently been started on medications for migraines with positive affect. She states that over the last month or so, she has begun to return to herself again and is quite happy about that. She does wish to continue her weight loss journey. She states that she has had intermittent rash under the pannus, this improves with the use of topical antifungals. The excess skin has caused discomfort with pain and itching. She has difficulty with clothes fitting properly. The excess skin has impacted her ADLs in that she needs to wash the area at least twice a day. The rash does improve with the use of antifungals, only to recur. She has had 3 or 4 occurrences over the last several months. States her goal is to reach 130-135 pounds. Waking at 530 am on , . 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 meal plan: 11 am premier protein rtd 1 pm chicken and salad apple w PB at 3 5 pm 2 boiled potatoes w smart balance butter snacks: chocolate covered pretzels, chocolate drinking 16 oz water, 12 oz pepsi max, 20 oz coffee with sweet cream Meal plan includes: Orgain protein powder, 2 scoops in 12 oz unsweetened almond milk x2 Meal 6 forks protein 6 forks veggies May use fit crunch bar instead of the 2nd shake when she is traveling to [place] for her son ?Exercise routine includes: none PF membership [facility] Medical History Complicated migraine Anxiety and depression GERD (gastroesophageal reflux disease) Anemia Surgical History History of wisdom tooth extraction, class I edentulism Hx of tonsillectomy Family History Father Cancer Anxiety Depression Mother Anxiety Depression Maternal Grandmother No problems noted. Maternal Grandfather Cancer Paternal Grandmother Type 2 diabetes mellitus Paternal Grandfather No problems noted. Brother Alcohol abuse Depression Sister Anxiety Depression Son No problems noted. Social History Housing: House Are you a primary manager medicare to a significant other at home: No Do you presently have visiting nurse or other home services: No Alcohol intake: current Alcohol intake frequency: holidays/special occasions only Patient Tobacco Use Status: Never used Tobacco e-Cigarette/Vaping Use: Never Used Second Hand Smoke Exposure: No service: No Current occupational status: employed Current occupational exposures/hazards: No Cognitive needs: No Hearing needs: No Vision needs: Yes Physical Exam Const General: healthy appearing and no acute distress Resp Effort & Inspection: normal respiratory effort Auscultation: clear to auscultation bilaterally Cardio Rate: regular rate Rhythm: regular rhythm GI Auscultation: normal bowel sounds Extrem General: Yes normal to inspection Assessment & Plan Assessment & Plan (1) S/P laparoscopic sleeve gastrectomy: Code(s): Z98.84 - Bariatric surgery status Category: Surgical Plan: Change meal plan: 15 g protein shake in the morning, either half of the premier protein ready to drink shake or 1 scoop, or she may use Orgain powder or ready to drink in the same fashion Meal x2 with 6 forks of protein and 6 forks of vegetables Half cup fresh fruit in the evening, berries, apple, pear, kiwi, orange. Discussed the critical nature of exercise as to how this relates to her weight loss. She certainly may walk outside if she wishes using [employer] chio to track her time distance and calories, she does have a membership to [employer]. Goal is to burn 300 calories per day, 7 days a week. We will have her return to the office in approximately 1 month
[2025-04-27 11:09] VITALS: BP 108/61; PULSE 69; TEMP 36.2; O2SAT 98; BMI 29.5
--- OUTSIDE RECORDS SUMMARY | 2025-04-27 11:47 | XMS_ITS | Clinical Summary ---
Author Organization [facility] Address [address] [place] [address] Care Team Providers Care Art Dealer Name Role Phone Jennifer Willams PA-C Primary Care Provider [phone] Allergies Active Allergy Reactions Criticality Noted Date [...] Cancer Screening (Pap Smear) 2010 COVID-19 Vaccine (3 - 2023-2 5 season) 2024 02/05/2021, 01/15/2021 Influenza Vaccine (#1) 2025 07/13/2017 DTap / Tdap / Td (2 - Td or Tdap) 06/26/2027 06/26/2017 RSV Ped < 20 months Aged Out No longe r eligible based on patient's age to complete this topic Care Teams Art Dealer Relationship Specialty Start Date End Date Jennifer Willams PA-C PCP - General Physician School Operations Manager 07/04/21
--- OUTSIDE RECORDS SUMMARY | 2025-04-27 11:47 | XMS_ITS | Encounter Summary ---
Author Organization [facility] Address [address] [place] [address] Care Team Providers Care Hand Bootmaker Name Role Phone Torie Blanton MD Primary Care Provider Unavail able Isamar Shearer MD Primary Care Provider [phone] Reason for Visit * Reason Onset Date Comments Letter 08/23/2019 Encounter Details Date Type Department Care Team Description 08/23/2019 Telephone Adult Medicine [address] [address] Torie Blanton MD Letter Social History Tobacco [...] on filedocumented in this encounter Care Teams Hand Bootmaker Relationship Specialty Start Date End Date Torie Blanton MD PCP - General Internal Medicine 06/14/18 11/21/21 Isamar Shearer MD [address] [place] [id number] PCP - General Internal Medicine 11/22/21 documented as of this encounter
== END 2025-04-27 11:46 | disposition home or self-care (01) ==
LOC: HO.HBS 11:00
PROVIDERS: PCP Internal Medicine; Visit Provider Physician Assistant Surgical
DX: E66.3 Overweight (principal); Z98.84 Bariatric surgery status; Z90.3 Acquired absence of stomach [part of]; Z68.29 Body mass index [BMI] 29.0-29.9, adult
CPT/HCPCS: 99213

== ENCOUNTER 2025-05-15 10:02 | Outpatient (AMB) | payer OTHER, SELFPAY ==
--- NOTE | 2025-05-15 10:06 | A.OFFVIS_ITS ---
Vital Signs 05/15/25 10:07 Height 5 ft 1 in Intake Visit Reasons: Migranes Allergies No Known Allergies Allergy (Verified 05/15/25 10:07) Medication List - Last Reconciled 05/15/25 by Niki Boyle CNP lorazepam 0.5 mg PO .qhs 30 days multivitamin 1 tab PO DAILY sertraline 200 mg (2 x 100 mg) PO DAILY 30 days sumatriptan succinate take 1 tab at onset of headache; if no relief may repeat 1 tab after at least 2 hrs; max = 4 tabs/24 hr PO verapamil 40 mg PO BEDTIME HPI Comments Details: 34-year-old woman with anxiety disorder treated with sertraline, who developed strep throat in 10/2024 followed by night sweats, joint pains, and lymphadenopathy around 11/2024. She was treated for tentative diagnosis of post- strep reactive arthritis with amoxicillin for a month and started on prednisone on 12/17/2024, with most of her symptoms resolving by 01/2025. In 12/2024, she had 4 episodes of flashing lights in left visual field lasting 20-60 minutes associated with and followed by more persistent numbness going into the left side of neck and left upper extremity, which lasts for 1-2 days. She feels foggy in her head and sometimes has word finding difficulties, some nausea, and photosensitivity without major headache with these episodes. On average, she has been getting about visual aura of flashing light, blurring, and LUE tingling about 1x/week, lasting about 30 minutes with occasional moderate headache afterward. No triggers identified. No previous history of migraines. Her mother has history of migraines, possibly with some visual aura. She was taking verapamil 40mg 1 tablet at bedtime, no medication side effects and did not try to increase dose. She also stopped control about 1 month ago. Migraines were better. She had 2 migraines with visual aura lasting about 30 minutes, along with some tingling down LUE and neck pain that may have lasted few hours since the end of 03/2025. Sumatriptan as needed helped some. Triggers included change in weather. She was working from home. She used to work in office 2 days a week. Sleep was okay. Stress was about the same. [facility] Medical History (Updated 05/15/25 @ 10:11 by Niki Boyle CNP) Stroke Complicated migraine Complicated migraine Anxiety and depression GERD (gastroesophageal reflux disease) Anemia Surgical History History of wisdom tooth extraction, class I edentulism Hx of tonsillectomy Family History (Updated 05/15/25 @ 10:13 by Niki Boyle CNP) Father Cancer Anxiety Depression Mother Anxiety Depression Headache Maternal Grandmother No problems noted. Maternal Grandfather Cancer Paternal Grandmother Type 2 diabetes mellitus Paternal Grandfather No problems noted. Brother Alcohol abuse Depression Sister Anxiety Depression Son No problems noted. Social History Housing: House Are you a primary school child care attendant to a significant other at home: No Do you presently have visiting nurse or other home services: No Alcohol intake: current Alcohol intake frequency: holidays/special occasions only Patient Tobacco Use Status: Never used Tobacco e-Cigarette/Vaping Use: Never Used Second Hand Smoke Exposure: No service: No Current occupational status: employed Current occupational exposures/hazards: No Cognitive needs: No Hearing needs: No Vision needs: Yes Review of Systems Const Denies chills, Denies daytime sleepiness, Denies difficulty sleeping, Reports fatigue, Denies fever(s), Denies frequent falls, Reports headache(s), Denies increased appetite, Denies poor appetite, Denies snoring, Denies weakness, Denies weight gain and Denies weight loss Eyes Denies loss of vision ENT Denies vertigo, Reports dizziness, Reports headache(s) and Denies neck pain Card Denies chest pain at rest, Denies chest pain with activity, Denies syncope, Denies leg edema, Denies palpitations, Denies dyspnea and Denies dyspnea on exertion Resp Denies cough, Denies dyspnea, Denies dyspnea on exertion and Denies snoring GI Denies abdominal pain, Denies constipation, Denies heartburn, Denies diarrhea and Denies nausea Denies urinary frequency, Denies urinary incontinence and Denies urinary urgency Musc Denies abnormal gait, Denies back pain, Reports myalgias, Reports arthralgias, Denies neck pain, Reports numbness and Reports tingling Neuro Denies abnormal gait, Denies vertigo, Reports dizziness, Denies syncope, Denies frequent falls, Reports headache(s), Denies lack of coordination, Denies loss of vision, Denies memory loss, Reports numbness, Denies Other visual disturbances, Denies restless legs, Denies seizure-like activity, Reports tingling, Denies paresthesias, Denies tremor(s) and Denies weakness Psych Reports anxiety, Denies depression, Denies auditory hallucinations, Denies memory loss and Denies visual hallucinations Endo Reports fatigue and Denies palpitations Physical Exam Const Other: General Appearance:? normal, in no acute distress. Heart:? S1, S2 normal, no murmurs. Lungs:? clear anteriorly and posteriorly. Musculoskeletal:? normal. Extremities:? no edema. Psych:? alert, oriented, cognitive function intact, cooperative with exam. Neuro Other: Abnormal Neurological Findings:?subjective left UE reduced sensation Mental Status: alert and oriented X 3. Normal attention, orientation, memory, and affect. Cranial Nerves: Pupils are equal, round, and reactive to light. External ocular muscles are intact. Visual cramer are full, no ptosis. Face is symmetrical, no facial weakness or droop. Facial sensations are normal. Tongue protrudes in midline. Palate elevates symmetrically. Shoulder shrugging is normal Motor Examination: Normal muscle tone, bulk and strength. No atrophy or fasciculations. No drift of the extended upper extremities. DTR 2+. Plantars are flexor. Sensory Exam: As above, otherwise normal light touch, temperature, pinprick, vibration, and joint-position sensations. Rhomberg sign is absent. Coordination: No ataxia. No titubation. Gait Exam: Within normal limits. Cerebellar Signs: Luintx-sm-ycnu is okay. Extrapyramidal System: No tremor, rigidity with normal facial expressions. No bradykinesia. No bradyphrenia. Normal arm swing and posture. No propulsion or retropulsion. Speech: Normal. No dysphasia or dysarthria. Results Reviewed Results Reviewed: 01/18/25 MRI brain normal. Assessment & Plan Assessment & Plan (1) Complicated migraine: Code(s): G43.109 - Migraine with aura, not intractable, without status migrainosus Category: Medical Plan: Continue verapamil 40mg 1 tablet daily Continue sumatriptan 50mg 1 tablet as needed for migraine Work note written. Plan Meds tried: propranolol (side effect of low BP), topiramate (side effects) Coding Level of Care Code Est Pt Level 4 (00727) Diagnoses Complicated migraine G43.109
--- OUTSIDE RECORDS SUMMARY | 2025-05-15 10:41 | XMS_ITS | Clinical Summary ---
Author Organization [facility] Address [address] [place] [address] Care Team Providers Care Supervisor Cigar Processing Name Role Phone Jennifer Willams PA-C Primary Care Provider [phone] Allergies Active Allergy Reactions Criticality Noted Date [...] age to complete this topic Care Teams Supervisor Cigar Processing Relationship Specialty Start Date End Date Jennifer Willams PA-C PCP - General Physician Outside Maintenance Worker 07/04/21
== END 2025-05-15 10:30 | disposition home or self-care (01) ==
LOC: HO.HSM 10:03
PROVIDERS: PCP Internal Medicine; Referring Provider Internal Medicine; Visit Provider Registered Nurse
DX: G43.109 Migraine with aura, not intractable, without status migrainosus (principal)
CPT/HCPCS: 99214

== ENCOUNTER 2025-07-24 13:29 | Outpatient (AMB) | payer OTHER, SELFPAY ==
--- NOTE | 2025-07-24 13:34 | MHC.OFFVISWM ---
VS Expanded 07/24/25 13:38 Height 5 ft 1 in Weight 159 lb BMI 30.0 Intake Visit Reasons: TV PO LSG 10/31/22 Allergies No Known Allergies Allergy (Verified 05/15/25 10:07) Medication List - Last Reconciled 07/24/25 by KOURTNEY Hernandez lorazepam 0.5 mg PO .qhs 30 days multivitamin 1 tab PO DAILY sertraline 200 mg (2 x 100 mg) PO DAILY 30 days sumatriptan succinate take 1 tab at onset of headache; if no relief may repeat 1 tab after at least 2 hrs; max = 4 tabs/24 hr PO verapamil 40 mg PO BEDTIME HPI Comments Details: This a 34 yo female who is s/p LSG without hiatal hernia repair on 10/31/22. Presents for 2 year 9 month post op visit. Initial weight 222.2 pounds, operative weight 188 pounds. Weight gain of 3lb since last OV in April 2025. Over the last year or so she had several medical issues including post streptococcal reactive arthritis. She also developed migraines. She required steroids and antibiotics over a month, that has since resolved. She has also recently been started on medications for migraines with positive affect. She states that over the last month or so, she has begun to return to herself again and is quite happy about that. She does wish to continue her weight loss journey. She states that she has had intermittent rash under the pannus, this improves with the use of topical antifungals. The excess skin has caused discomfort with pain and itching. She has difficulty with clothes fitting properly. The excess skin has impacted her ADLs in that she needs to wash the area at least twice a day. The rash does improve with the use of antifungals, only to recur. She has had 3 or 4 occurrences over the last several months. States her goal is to reach 130-135 pounds. Waking at 530 am on , . 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 meal plan: 11 am premier protein rtd 1 pm chicken and salad apple w PB at 3 5 pm 2 boiled potatoes w smart balance butter snacks: chocolate covered pretzels, chocolate drinking 16 oz water, 12 oz pepsi max, 20 oz coffee with sweet cream She is taking Huy-slim MVI 2 per day dealing with cravings at nighttime for sweets; reports she does not enjoy eating meat Original meal plan includes: Orgain protein powder, 2 scoops in 12 oz unsweetened almond milk x2 Meal 6 forks protein 6 forks veggies May use fit crunch bar instead of the 2nd shake when she is traveling to [place] for her son Exercise routine includes: none membership [facility] Medical History (Updated 05/15/25 @ 10:11 by Niki Boyle CNP) Stroke Complicated migraine Complicated migraine Anxiety and depression GERD (gastroesophageal reflux disease) Anemia Surgical History History of wisdom tooth extraction, class I edentulism Hx of tonsillectomy Family History (Updated 05/15/25 @ 10:13 by Niki Boyle CNP) Father Cancer Anxiety Depression Mother Anxiety Depression Headache Maternal Grandmother No problems noted. Maternal Grandfather Cancer Paternal Grandmother Type 2 diabetes mellitus Paternal Grandfather No problems noted. Brother Alcohol abuse Depression Sister Anxiety Depression Son No problems noted. Social History Housing: House Are you a primary medication care manager to a significant other at home: No Do you presently have visiting nurse or other home services: No Alcohol intake: current Alcohol intake frequency: holidays/special occasions only Patient Tobacco Use Status: Never used Tobacco e-Cigarette/Vaping Use: Never Used Second Hand Smoke Exposure: No service: No Current occupational status: employed Current occupational exposures/hazards: No Cognitive needs: No Hearing needs: No Vision needs: Yes Telehealth Telehealth Telehealth Platform: Telephone Location of provider rendering services: other Location of patient: address on file Patient Identification confirmed using: Name, : Yes Telehealth method: voice only Patient verbally consented to treatment: Yes Patient verbally consented to billing insurance company: Yes Patient informed of any privacy concerns related to visit: Yes Minutes spent on Phone/Video with Pt.: 15 Assessment & Plan Assessment & Plan (1) Obesity (BMI 30-39.9): Code(s): E66.9 - Obesity, unspecified Category: Medical (2) S/P laparoscopic sleeve gastrectomy: Code(s): Z98.84 - Bariatric surgery status Category: Surgical Plan Pt is interested in starting GLP1. Reviewed contraindications, discussed dosing. Discussed need for adequate protein intake while on GLP1s as well as frequent communication with our office. Pt will check in with me weekly and is aware that subsequent Rx will be dependent on frequent communication. I sent the [employer] chio via text. Rx for Zepbound sent. Ok to use biotin. RTC 3-4months. Medications: New tirzepatide (weight loss) (Zepbound) for 4 weeks 2.5 mg (0.5 mL) subcut QWEEK 2 mL 0RF
--- OUTSIDE RECORDS SUMMARY | 2025-07-24 16:37 | XMS_ITS | Clinical Summary ---
Author Organization [facility] Address [address] [place] [address] Care Team Providers Care Qc Lab Technician Name Role Phone Jennifer Willams PA-C Primary Care Provider [phone] Allergies Active Allergy Reactions Criticality Noted Date [...] (Pap Smear) 2010 COVID-19 Vaccine (3 - 2024-2 6 season) 2025 02/05/2021, 01/15/2021 Influenza Vaccine (#1) 2025 07/13/2017 DTap / Tdap / Td (2 - Td or Tdap) 06/26/2027 06/26/2017 RSV Ped < 20 months Aged Out No longe r eligible based on patient's age to complete this topic Care Teams Qc Lab Technician Relationship Specialty Start Date End Date Jennifer Willams PA-C PCP - General Physician Ethanol Operator 07/04/21
== END 2025-07-24 14:03 | disposition home or self-care (01) ==
LOC: HO.HBS 13:30
PROVIDERS: PCP Internal Medicine; Visit Provider Physician Assistant Surgical
DX: E66.9 Obesity, unspecified (principal); Z98.84 Bariatric surgery status; Z90.3 Acquired absence of stomach [part of]; Z68.30 Body mass index [BMI] 30.0-30.9, adult
CPT/HCPCS: 98013